=== PATIENT | female | born 1945 | race Caucasian/White ===

== ENCOUNTER 2016-11-06 09:48 | Observation (INO) | payer OTHER ==
[~2016-11-06] VITALS: Ht 165.1 cm; Wt 50.0 kg
[~2016-11-06 09:48] MED LIST: AMAN100C18 PO; CALC-51 PO; DESV50TA2 PO; INTE44IN SQ; LISI10TA PO; TRAZ1TAB8 PO
[2016-11-06] MEDS ORDERED: ACETAMINOPHEN 500 MG TAB PO STA (10:04)
[2016-11-06] MEDS ORDERED: SODIUM CHLORIDE 0.9% 1000ML 500 ML IV ONE (10:04)
[2016-11-06] MEDS ORDERED: CYNI1000 SQ (10:24)
[2016-11-06 10:47] LABS: BASO % 0.5 %; BASO ABS # 0.03 K/uL (0-0.2); COMPLETE YES; EOS % 1.6 %; HEMATOCRIT 37.1 % (37-47); IG% 0.2 %; LYMPH % 9.9 %; LYMPH ABS # 0.55 K/uL (1.2-3.4); MEAN CELL VOLUME 98.4 fL (80-100); MEAN CORPUSCULAR HEMOGLOBIN 33.2 pg (25-34); MEAN CORPUSCULAR HGB CONC 33.7 g/dl (32-36); MEAN PLATELET VOLUME 9.6 fL (7.4-10.4); MONO % 12.1 %; NEUT % 75.7 %; PLATELET COUNT 217 K/uL (130-400); RED BLOOD COUNT 3.77 M/uL (4.2-5.4); WHITE BLOOD COUNT 5.53 K/uL (4.8-10.8)
[2016-11-06 10:56] LABS: INR 1.1 (0.9-1.1); PARTIAL THROMBOPLASTIN RATIO 0.9; PROTHROMBIN TIME (PATIENT) 11.4 SECONDS (9.0-12.0)
[2016-11-06 10:57] LABS: ALT/SGPT 25 U/L (12-78); BLOOD UREA NITROGEN 18 mg/dl (7-18); BUN/CREATININE RATIO 20.3 (10-20); CALCIUM 9.6 mg/dl (8.5-10.1); CARBON DIOXIDE 26 mmol/L (21-32); CHLORIDE 103 mmol/L (98-107); CREATININE 0.88 mg/dl (0.60-1.20); GLUCOSE 78 mg/dl (70-99); POTASSIUM 4.2 mmol/L (3.5-5.1); SODIUM 140 mmol/L (136-145)
--- NOTE | 2016-11-06 11:00 | DIAGNOSTIC IMAGING REPORT ---
CHEST ONE VIEW PORTABLE CLINICAL HISTORY: Sepsis COMPARISON STUDY: No previous studies for comparison. FINDINGS: The heart is normal in size. There is mild elevation left hemidiaphragm. There is no failure. There is no focal pulmonary consolidation. There are minor left basilar atelectatic changes.[ IMPRESSION: No active disease in the chest. Electronically signed by: Manuel Richter M.D. 11/06/2016 10:59 AM Dictated Date/Time: 11/06/2016 10:58 AM
[2016-11-06 11:02] LABS: ALB/GLOB RATIO 1.3 (0.9-2); ALKALINE PHOSPHATASE 69 U/L (45-117); AST/SGOT 25 U/L (15-37)
[2016-11-06] MEDS ORDERED: SODIUM CHLORIDE 0.9% 500ML 500 ML IV STA (12:09)
[2016-11-06 12:32] LABS: URINE APPEARANCE TURBID (CLEAR); URINE BILIRUBIN NEG (NEG); URINE COLOR YELLOW; URINE NITRITE NEG (NEG); URINE PH 5.5 (4.5-7.5); URINE SPECIFIC GRAVITY 1.013 (1.000-1.030); UROBILINOGEN NEG (NEG); ZZURINE CULT IF INDIC CATH YES
[2016-11-06 12:41] LABS: MANUAL MICROSCOPIC REQUIRED? NO; REVIEW REQ? YES
[2016-11-06] MEDS ORDERED: CEFTRIAXONE SOD INJ 1 GM ADDVIAL IV STA (13:30)
[2016-11-06] MEDS ORDERED: ACETAMINOPHEN 325 MG TAB PO PRN (14:30)
[2016-11-06] MEDS ORDERED: ONDANSETRON INJ 2 MG/ML 2 ML VIAL IV PRN (14:30)
[2016-11-06] MEDS ORDERED: LOSA1TAB PO (14:34)
--- NOTE | 2016-11-06 15:00 | History and Physical ---
History & Physical Date & Time of Service: Nov 06, 2016 at 14:42 Chief Complaint: U Primary Care Physician: Carlos Bhagat MD History of Present Illness Source: patient, clinic records, hospital records Patient seen and examined 71 year old year old female with PMHx of Multiple Sclerosis HTN, and depression presents to the ED complaining of generalized weakness x 1 day. Patient reports that she is on Rebif injections for MS but has not taken them for about 3 months d/t financial reasons. She resumed them last evening. Several hours later she felt generally weak and shaky but didn't think much of it because she knew flu-like symptoms could be a side effect. When she woke up this morning she felt even worse she states she had difficulty ambulating d/t generalized weakness, so she called a friend who brought her to the ED. She denies fevers, chills, URI symptoms, chest pain, SOB, nausea, vomiting, diarrhea, dysuria, incontinence, calf pain and edema. She denies ever having side effects from rebif previously. She denies any sick contacts. In the ED VS are stable, CBC, PRP are unremarkable. UA shows a urinary tract infection. She was given IVFs and Ceftriaxone and reports already starting to feel better. She will be observed for further workup and treatment. 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 Surgical Problems: (1) H/O colonoscopy Status: Chronic (2) History of dental surgery Status: Chronic Family History Manatee's disease FH: CAD (coronary artery disease) FH: cancer Social History Smoking Status: Former Smoker Alcohol Use: occasionally Marital Status: single Housing status: lives alone Occupational Status: retired Immunizations History of Influenza Vaccine: Yes Influenza Vaccine Date: May 14, 2011 History of Tetanus Vaccine?: No History of Pneumococcal: Yes Pneumococcal Date: May 14, 2011 History of Hepatitis B Vaccine: No Allergies Coded Allergies: Ampicillin (Verified Allergy, Unknown, UNKNOWN, 11/06/16) Penicillins (Verified Allergy, Unknown, UNKNOWN, 11/06/16) Sulfa Antibiotics (Verified Allergy, Unknown, unknown, 11/06/16) Tetracycline (Verified Allergy, Unknown, UNKNOWN, 11/06/16) Home Medications Scheduled Amantadine Hcl (Amantadine Hcl), 100 MG PO BID Cyanocobalamin (Cyanocobalamin), 1,000 MCG SQ MONTHLY Desvenlafaxine Succinate (Pristiq), 50 MG PO DAILY Interferon Beta-1A (Rebif), 44 MCG SQ Q2D Losartan Potassium (Cozaar), 1 TAB PO DAILY Trazodone Hcl (Desyrel), 100 MG PO QPM Review of Systems See above for pertinent positives & negatives. A total of 10 systems reviewed and were otherwise negative. Physical Exam Vital Signs Date Time Temp Pulse Resp B/P Pulse Ox O2 Delivery O2 Flow Rate FiO2 11/06/16 13:35 91 20 133/78 97 11/06/16 13:34 88 11/06/16 12:32 94 18 141/83 96 Room Air 11/06/16 11:54 97 Room Air 11/06/16 11:53 91 20 144/80 97 Room Air 11/06/16 10:50 95 19 141/93 Room Air 11/06/16 10:08 100 11/06/16 09:52 36.8 99 18 146/104 96 Room Air General Appearance: + pertinent finding (Very pleasant frail cachectic appearing 71 year old female lying in bed in NAD ) Head: normocephalic, atraumatic Eyes: PERRL, EOMI, sclerae normal ENT: hearing grossly normal, pharynx normal Neck: supple, no JVD Respiratory/Chest: chest non-tender, lungs clear, normal breath sounds, no respiratory distress, no accessory muscle use Cardiovascular: regular rate, rhythm, no edema, no gallop, no JVD, no murmur, normal peripheral pulses Abdomen/GI: normal bowel sounds, non tender, soft Back: normal inspection, no CVA tenderness, no muscle spasm Extremities/Musculoskelatal: no calf tenderness, normal capillary refill, no pedal edema Neurologic/Psych: alert, oriented x 3, + pertinent finding (Strength +4/5 in all extremities equal BL, no focal deficits noted ) Skin: normal color, warm/dry, no rash Lymphatic: no adenopathy Diagnostics Laboratory Results Results Past 24 Hours Test 11/06/16 10:15 11/06/16 10:22 11/06/16 10:45 11/06/16 11:50 Range/Units White Blood Count 5.53 4.8-10.8 K/uL Red Blood Count 3.77 4.2-5.4 M/uL Hemoglobin 12.5 12.0-16.0 g/dL Hematocrit 37.1 37-47 % Mean Corpuscular Volume 98.4 80-100 fL Mean Corpuscular Hemoglobin 33.2 25-34 pg Mean Corpuscular Hemoglobin Concent 33.7 32-36 g/dl Platelet Count 217 130-400 K/uL Mean Platelet Volume 9.6 7.4-10.4 fL Neutrophils (%) (Auto) 75.7 % Lymphocytes (%) (Auto) 9.9 % Monocytes (%) (Auto) 12.1 % Eosinophils (%) (Auto) 1.6 % Basophils (%) (Auto) 0.5 % Neutrophils # (Auto) 4.18 1.4-6.5 K/uL Lymphocytes # (Auto) 0.55 1.2-3.4 K/uL Monocytes # (Auto) 0.67 0.11-0.59 K/uL Eosinophils # (Auto) 0.09 0-0.5 K/uL Basophils # (Auto) 0.03 0-0.2 K/uL RDW Standard Deviation 46.2 36.4-46.3 fL RDW Coefficient of Variation 12.9 11.5-14.5 % Immature Granulocyte % (Auto) 0.2 % Immature Granulocyte # (Auto) 0.01 0.00-0.02 K/uL Prothrombin Time 11.4 9.0-12.0 SECONDS Prothromb Time International Ratio 1.1 0.9-1.1 Activated Partial Thromboplast Time 24.3 21.0-31.0 SECONDS Partial Thromboplastin Ratio 0.9 Sodium Level 140 136-145 mmol/L Potassium Level 4.2 3.5-5.1 mmol/L Chloride Level 103 98-107 mmol/L Carbon Dioxide Level 26 21-32 mmol/L Anion Gap 11.0 3-11 mmol/L Blood Urea Nitrogen 18 7-18 mg/dl Creatinine 0.88 0.60-1.20 mg/dl Est Creatinine Clear Calc Drug Dose 48.7 ml/min Estimated GFR () 77.2 Estimated GFR (Non- 66.6 BUN/Creatinine Ratio 20.3 10-20 Random Glucose 78 70-99 mg/dl Calcium Level 9.6 8.5-10.1 mg/dl Total Bilirubin 0.5 0.2-1 mg/dl Aspartate Amino Transf (AST/SGOT) 25 15-37 U/L Alanine Aminotransferase (ALT/SGPT) 25 12-78 U/L Alkaline Phosphatase 69 45-117 U/L Troponin I < 0.015 0-0.045 ng/ml Total Protein 7.6 6.4-8.2 gm/dl Albumin 4.3 3.4-5.0 gm/dl Globulin 3.3 2.5-4.0 gm/dl Albumin/Globulin Ratio 1.3 0.9-2 Bedside Lactic Acid Venous 0.94 0.90-1.70 mmol/L Urine Color YELLOW Urine Appearance TURBID CLEAR Urine pH 5.5 4.5-7.5 Urine Specific [place] 1.013 1.000-1.030 Urine Protein NEG NEG Urine Glucose (UA) NEG NEG Urine Ketones TRACE NEG Urine Occult Blood 2+ NEG Urine Nitrite NEG NEG Urine Bilirubin NEG NEG Urine Urobilinogen NEG NEG Urine Leukocyte Esterase LARGE NEG Urine WBC (Auto) >30 0-5 /hpf Urine RBC (Auto) 10-30 0-4 /hpf Urine Hyaline Casts (Auto) 1-5 0-5 /lpf Urine Epithelial Cells (Auto) 5-10 0-5 /lpf Urine Bacteria (Auto) 2+ NEG Urine Yeast (Auto) NONE PRSENT Influenza Type A Antigen Neg for Influ A NEG Influenza Type B Antigen Neg for Influ B NEG Test 11/06/16 14:32 Range/Units Microbiology Results 11/06/16 Blood Culture, Received Pending 11/06/16 Blood Culture, Received Pending 11/06/16 Urine Culture, Received Pending Diagnostic Radiology CXR Per radiologist read: IMPRESSION: No active disease in the chest. EKG NSR 92 BPM, nonspecific ST abnormality Impression Assessment and Plan 71 year old female with history of multiple sclerosis presents to the ED complaining of generalized weakness ambulatory dysfunction x 1 day. Patient resumed Refib yesterday after missing 3 months for finances. Workup reveals UTI URINARY TRACT INFECTION -Observation in med/surg -Nontoxic appearing, afebrile, no leukocytosis, no signs of sepsis -urine culture pending -empirically treat with Rocephin- no previous cultures available -Gentle IVF hydration -CBC, PRP, Mg daily GENERALIZED WEAKNESS -? cause ? secondary to URI, Refib side effect, ?Influenza -Flu antigen negative will check flu PCR -empiric ceftriaxone for UTI -Neurology consulted RE: MS/medications -PT/OT eval MALNUTRITION -BMI 19 kg/m2, appears cachectic -Dietitian consult placed MULTIPLE SCLEROSIS -Follows with Dr. Duran -Just resumed Refib yesterday - has known side effect of flu like symptoms -Continue Amantadine -consult neurology placed -Next dose of Refib due tomorrow night - will hold for now and defer to neurology HTN -stable -continue Losartan DEPRESSION -continue Trazodone, Pristiq H/O B12 DEFICIENCY -continue monthly B12 injections H/O SUBDURAL HEMORRHAGE DVT PROPHYLAXIS: SCDs RE: h/o subdural hemorrhage CODE STATUS: FULL CODE DISPO:observation pending further workup discharge planning eval Patient seen in collaboration with Dr. Anthony ATTENDING ADDENDUM care coordinated with ALBERTA Marks please refer to her notes for full details, I agree with her notes patient seen and examined, records reviewed by myself as well on exam, patient seen resting in bed states she feels better compared to earlier today no chills denies abdominal pain, dysuria no other symptoms VS noted and reviewed oriented x 3, not in distress, speaks in sentences with no effort nor accessory muscle use normal rate, regular rhythm, no murmurs clear breath sounds bilaterally non distended, soft, nontender no bipedal edema, erythema, warmth no neuro deficits WBC 5.5 UA: (+) leuk esterase, bacteria ASSESSMENT/PLAN> WEAKNESS, POSSIBLE REACTION TO REBIF - hold Rebif Neurology consulted IV fluids R/O UTI - ff up cultures - empiric Ceftriaxone other diagnoses and plan of care as per ALBERTA Marks's notes Jeferson Anthony MD VTE Prophylaxis VTE Risk Assessment Done? Y/N: Yes Risk Level: Moderate
[2016-11-06 16:19] VITALS: BP 134/76; PULSE 71; TEMP 36.5; O2SAT 94
--- NOTE | 2016-11-06 17:06 | EMERGENCY ROOM VISIT NOTE ---
History Report prepared by Refugio: Shiv Harris Under the Supervision of: Dr. Ha Oro M.D. First contact with patient: 09:59 Chief Complaint: ILLNESS Stated Complaint: U History of Present Illness The patient is a 71 year old female with a history of MS who presents to the Emergency Room with complaints of persistent generalized weakness for the past several hours. The patient has been having difficulty ambulating secondary to weakness. She also complains of chills and tremors of the upper extremities. The patient denies any fevers, cough, congestion, sore throat, vomiting, diarrhea, urinary symptoms, or rashes. The patient was taking Rebif for MS every other day. She stopped taking it for three months for financial reasons. The patient had her first dose of Rebif in three months around 0100 last night, several hours before her symptoms began. She felt completely fine prior to the injection. The patient states that she has been keeping up with fluids. The patient takes Pristiq for depression and lisinopril for hypertension. Source of History: patient Onset: several hours Position: other (generalized) Quality: other (weakness) Timing: other (persistent) Associated Symptoms: + chills, No cough, No diarrhea, No fevers, No rash, No sorethroat, No urinary symptoms, No vomiting Review of Systems See HPI for pertinent positives & negatives. A total of 10 systems reviewed and were otherwise negative. Past Medical & Surgical Medical Problems: (1) B12 deficiency (2) Clostridium difficile infection (3) Depression (4) Generalized weakness (5) HTN (hypertension) (6) Multiple sclerosis (7) Subdural hematoma (8) UTI (urinary tract infection) Surgical Problems: (1) H/O colonoscopy (2) History of dental surgery Family History Patient reports no known family medical history. Social History Smoking Status: Former Smoker Alcohol Use: occasionally Marital Status: single Housing Status: other Occupation Status: retired Current/Historical Medications Scheduled Amantadine Hcl (Amantadine Hcl), 100 MG PO BID Cyanocobalamin (Cyanocobalamin), 1,000 MCG SQ MONTHLY Desvenlafaxine Succinate (Pristiq), 50 MG PO DAILY Interferon Beta-1A (Rebif), 44 MCG SQ Q2D Losartan Potassium (Cozaar), 1 TAB PO DAILY Trazodone Hcl (Desyrel), 100 MG PO QPM Allergies Coded Allergies: Ampicillin (Verified Allergy, Unknown, UNKNOWN, 11/06/16) Penicillins (Verified Allergy, Unknown, UNKNOWN, 11/06/16) Sulfa Antibiotics (Verified Allergy, Unknown, unknown, 11/06/16) Tetracycline (Verified Allergy, Unknown, UNKNOWN, 11/06/16) Physical Exam Vital Signs Date Time Temp Pulse Resp B/P Pulse Ox O2 Delivery O2 Flow Rate FiO2 11/06/16 16:09 80 18 130/75 97 11/06/16 13:35 91 20 133/78 97 11/06/16 13:34 88 11/06/16 12:32 94 18 141/83 96 Room Air 11/06/16 11:54 97 Room Air 11/06/16 11:53 91 20 144/80 97 Room Air 11/06/16 10:50 95 19 141/93 Room Air 11/06/16 10:08 100 11/06/16 09:52 36.8 99 18 146/104 96 Room Air Physical Exam GENERAL: Patient is in no acute distress. HEENT: No acute trauma, normocephalic atraumatic, mucous membranes moist, no nasal congestion, no scleral icterus. NECK: No stridor, no adenopathy, no meningismus, trachea is midline. LUNGS: Clear to auscultation bilaterally, no wheeze, no rhonchi, breath sounds equal. HEART: Tachycardic with a regular rhythm, no murmurs. ABDOMEN: Soft, nontender, bowel sounds positive, no hernias, no peritonitis. EXTREMITIES: No cyanosis or edema, full range of motion of all the joints without pain or difficulty, no signs for acute trauma. NEUROLOGIC: Oriented x 3, no acute motor or sensory deficits, no focal weakness , extremity tremor noted. SKIN: No rash, no jaundice, no diaphoresis. Medical Decision & Procedures ER Provider Diagnostic Interpretation: X-ray results as stated below per interpretation by me and the radiologist: CHEST ONE VIEW PORTABLE CLINICAL HISTORY: Sepsis COMPARISON STUDY: No previous studies for comparison. FINDINGS: The heart is normal in size. There is mild elevation left hemidiaphragm. There is no failure. There is no focal pulmonary consolidation. There are minor left basilar atelectatic changes.[ IMPRESSION: No active disease in the chest. Electronically signed by: Manuel Richter M.D. 11/06/2016 10:59 AM Dictated Date/Time: 11/06/2016 10:58 AM Laboratory Results 11/06/16 10:15 Red Blood Count 3.77, Mean Corpuscular Volume 98.4, Mean Corpuscular Hemoglobin 33.2, Mean Corpuscular Hemoglobin Concent 33.7, Mean Platelet Volume 9.6, Neutrophils (%) (Auto) 75.7, Lymphocytes (%) (Auto) 9.9, Monocytes (%) (Auto) 12.1, Eosinophils (%) (Auto) 1.6, Basophils (%) (Auto) 0.5, Neutrophils # (Auto ) 4.18, Lymphocytes # (Auto) 0.55, Monocytes # (Auto) 0.67, Eosinophils # (Auto ) 0.09, Basophils # (Auto) 0.03 11/06/16 10:15 Test 11/06/16 10:15 11/06/16 10:22 11/06/16 10:45 11/06/16 11:50 White Blood Count 5.53 K/uL (4.8-10.8) Red Blood Count 3.77 M/uL (4.2-5.4) Hemoglobin 12.5 g/dL (12.0-16.0) Hematocrit 37.1 % (37-47) Mean Corpuscular Volume 98.4 fL (80-100) Mean Corpuscular Hemoglobin 33.2 pg (25-34) Mean Corpuscular Hemoglobin Concent 33.7 g/dl (32-36) Platelet Count 217 K/uL (130-400) Mean Platelet Volume 9.6 fL (7.4-10.4) Neutrophils (%) (Auto) 75.7 % Lymphocytes (%) (Auto) 9.9 % Monocytes (%) (Auto) 12.1 % Eosinophils (%) (Auto) 1.6 % Basophils (%) (Auto) 0.5 % Neutrophils # (Auto) 4.18 K/uL (1.4-6.5) Lymphocytes # (Auto) 0.55 K/uL (1.2-3.4) Monocytes # (Auto) 0.67 K/uL (0.11-0.59) Eosinophils # (Auto) 0.09 K/uL (0-0.5) Basophils # (Auto) 0.03 K/uL (0-0.2) RDW Standard Deviation 46.2 fL (36.4-46.3) RDW Coefficient of Variation 12.9 % (11.5-14.5) Immature Granulocyte % (Auto) 0.2 % Immature Granulocyte # (Auto) 0.01 K/uL (0.00-0.02) Prothrombin Time 11.4 SECONDS (9.0-12.0) Prothromb Time International Ratio 1.1 (0.9-1.1) Activated Partial Thromboplast Time 24.3 SECONDS (21.0-31.0) Partial Thromboplastin Ratio 0.9 Anion Gap 11.0 mmol/L (3-11) Est Creatinine Clear Calc Drug Dose 48.7 ml/min Estimated GFR () 77.2 Estimated GFR (Non- 66.6 BUN/Creatinine Ratio 20.3 (10-20) Calcium Level 9.6 mg/dl (8.5-10.1) Total Bilirubin 0.5 mg/dl (0.2-1) Aspartate Amino Transf (AST/SGOT) 25 U/L (15-37) Alanine Aminotransferase (ALT/SGPT) 25 U/L (12-78) Alkaline Phosphatase 69 U/L (45-117) Troponin I < 0.015 ng/ml (0-0.045) Total Protein 7.6 gm/dl (6.4-8.2) Albumin 4.3 gm/dl (3.4-5.0) Globulin 3.3 gm/dl (2.5-4.0) Albumin/Globulin Ratio 1.3 (0.9-2) Thyroid Stimulating Hormone (TSH) 3.470 uIu/ml (0.300-4.500) Bedside Lactic Acid Venous 0.94 mmol/L (0.90-1.70) Urine Color YELLOW Urine Appearance TURBID (CLEAR) Urine pH 5.5 (4.5-7.5) Urine Specific [place] 1.013 (1.000-1.030) Urine Protein NEG (NEG) Urine Glucose (UA) NEG (NEG) Urine Ketones TRACE (NEG) Urine Occult Blood 2+ (NEG) Urine Nitrite NEG (NEG) Urine Bilirubin NEG (NEG) Urine Urobilinogen NEG (NEG) Urine Leukocyte Esterase LARGE (NEG) Urine WBC (Auto) >30 /hpf (0-5) Urine RBC (Auto) 10-30 /hpf (0-4) Urine Hyaline Casts (Auto) 1-5 /lpf (0-5) Urine Epithelial Cells (Auto) 5-10 /lpf (0-5) Urine Bacteria (Auto) 2+ (NEG) Urine Yeast (Auto) (NONE PRSENT) Influenza Type A Antigen Neg for Influ A (NEG) Influenza Type B Antigen Neg for Influ B (NEG) Laboratory results reviewed by me. Medications Administered Medications (Trade) Dose Ordered Sig/Roby Route Start Time Stop Time Status Last Admin Dose Admin Sodium Chloride (Nss 1000ml) 500 ml @ 999 mls/hr Q31M ONCE IV 11/06/16 10:04 11/06/16 10:34 DC 11/06/16 10:31 999 MLS/HR Acetaminophen 1000 mg 1,000 mg NOW STAT PO 11/06/16 10:04 11/06/16 10:06 DC 11/06/16 10:32 1,000 MG Sodium Chloride (Nss 500ml) 500 ml @ 999 mls/hr Q31M STAT IV 11/06/16 12:09 11/06/16 12:39 DC 11/06/16 12:30 999 MLS/HR Ceftriaxone Sodium (Rocephin Inj) 1 gm NOW STAT IV 11/06/16 13:30 11/06/16 13:31 DC 11/06/16 13:34 1 GM ECG Indication: weakness Rate (beats per minute): 92 Rhythm: normal sinus Findings: ST depression (Lateral, subtle), no acute ischemic change, no ectopy Comparison ECG Date: 13 March 2012 Change: Lateral ST depressions are new compared to prior EKG dated 13 March 2012. ED Course 1002: The patient was evaluated in room A10. A complete history and physical exam was performed. 1004: Tylenol 1000 mg PO, NSS 500 ml @ 999 mls/hr. 1209: NSS 500 ml @ 999 mls/hr. 1330: Rocephin 1 gm IV. 1340: Updated the patient. She verbalized understanding and agreement of the plan. 1351: Discussed the case with Haliey Ly PA-C, [facility] Hospitalist. The patient will be evaluated. Medical Decision Differential diagnosis includes medication reaction, UTI, infection, viral illness, pneumonia, dehydration, electrolyte imbalance, anemia, exacerbation of MS. There is no leukocytosis or concerning anemia. No significant electrolyte abnormality, kidney failure or hepatitis. The patient appears to be in a euthyroid state. Influenza testing is negative. Chest film does not show pneumonia or CHF. EKG shows a normal sinus rhythm, no acute ischemia. Cardiac enzyme testing 1 is not consistent with acute cardiac injury. Urinalysis shows infection. Urine culture and blood cultures are pending. Lactic acid level is not elevated making severe sepsis less likely. The patient received IV saline, oral Tylenol and IV ceftriaxone. I do think that the UTI is causing a flare of her MS. Admission/observation is warranted. Consults Time Called: 1345 Consulting Physician: Hailey Ly PA-C, [facility] Hospitalist Returned Call: [phone]: Discussed the case with Hailey Ly PA-C, [facility] Hospitalist. The patient will be evaluated. Impression Primary Impression: UTI (urinary tract infection) Additional Impression: Weakness Scribe Attestation The scribe's documentation has been prepared under my direction and personally reviewed by me in its entirety. I confirm that the note above accurately reflects all work, treatment, procedures, and medical decision making performed by me. Departure Information Dispostion Being Evaluated By Hospitalist Referrals Carlos Bhagat MD (PCP) Patient Instructions My [facility] Problem Qualifiers
[2016-11-06 19:42] VITALS: BP 134/76; PULSE 71; TEMP 36.5; O2SAT 94; Ht 165.1 cm; Wt 50.0 kg
[2016-11-06 20:18] LABS: INFLUENZA A PCR Neg for Influ A (NEG); INFLUENZA B PCR Neg for Influ B (NEG)
[2016-11-06] MEDS: SODIUM CHLORIDE 0.9% 1000ML 1,000 ML IV SCH (21:00)
[2016-11-06] MEDS: AMANTADINE HCL 100 MG CAP PO SCH (21:01)
[2016-11-06] MEDS: TRAZODONE HCL 100 MG TAB PO SCH (21:01)
[2016-11-07 00:33] VITALS: BP 131/84; PULSE 67; TEMP 36.4; O2SAT 96
[2016-11-07] MEDS: SODIUM CHLORIDE 0.9% 1000ML 1,000 ML IV SCH ×2 (04:54→15:00)
[2016-11-07 06:08] LABS: HEMATOCRIT 33.1 % (37-47); MEAN CELL VOLUME 100.6 fL (80-100); MEAN CORPUSCULAR HEMOGLOBIN 32.8 pg (25-34); MEAN CORPUSCULAR HGB CONC 32.6 g/dl (32-36); MEAN PLATELET VOLUME 9.8 fL (7.4-10.4); PLATELET COUNT 186 K/uL (130-400); RED BLOOD COUNT 3.29 M/uL (4.2-5.4); WHITE BLOOD COUNT 3.37 K/uL (4.8-10.8)
[2016-11-07 06:36] LABS: BUN/CREATININE RATIO 21.8 (10-20); CALCIUM 8.5 mg/dl (8.5-10.1); CREATININE 0.81 mg/dl (0.60-1.20); MAGNESIUM 1.8 mg/dl (1.8-2.4); POTASSIUM 4.1 mmol/L (3.5-5.1)
[2016-11-07 08:07] VITALS: BP 108/68; PULSE 76; TEMP 36.7; O2SAT 91
[2016-11-07] MEDS ORDERED: LISINOPRIL 10 MG TAB PO SCH (09:00)
[2016-11-07] MEDS: LOSARTAN POTASSIUM 25 MG TAB PO SCH (09:21)
[2016-11-07] MEDS: AMANTADINE HCL 100 MG CAP PO SCH ×2 (09:21→21:18)
[2016-11-07] MEDS: CEFTRIAXONE SOD INJ 1 GM in DEXTROSE 5% ADD-VANTAGE 50ML 50 ML IV SCH (12:15)
--- NOTE | 2016-11-07 13:45 | Neurology Consultation ---
Neurology Consultation Date of Consultation: Nov 07, 2016. Attending Physician: Geoffrey Tovar MD Primary Care Physician: Carlos Bhagat MD Reason for Consultation: MS with generalized weakness History of Present Illness Source: patient Floresita is a 71 year old year old female with PMH of MS, HTN, and depression presents to the ED complaining of generalized weakness x 1 day. She states she had been on Rebif injections for MS but for about 3 months because of financial reasons. She took her first shot in 3 months at about 1a this am. She started feeling generally weak and shaky so she went back to bed but when she woke in the morning she was having difficulty ambulating because of the weakness , so she called a neighbor that brought her to the ED. She denies fevers, chills , URI symptoms, chest pain, SOB, nausea, vomiting, diarrhea, dysuria, incontinence, calf pain and edema. She states in the past she doesn't remember having side effects with the Rebif. Her UA showed a UTI and was treated with fluids and and Ceftriaxone. She states she is feeling better today and was able to eat her lunch without issues. Past Medical/Surgical History Medical Problems: (1) Encounter for laboratory test Status: Acute (2) Weakness Status: Acute Social History Smoking Status: Never smoker Alcohol Use: occasionally Marital Status: single Housing Status: other Occupation Status: retired Allergies Coded Allergies: Ampicillin (Verified Allergy, Unknown, UNKNOWN, 11/06/16) Penicillins (Verified Allergy, Unknown, UNKNOWN, 11/06/16) Sulfa Antibiotics (Verified Allergy, Unknown, unknown, 11/06/16) Tetracycline (Verified Allergy, Unknown, UNKNOWN, 11/06/16) Current Inpatient Medications Current Inpatient Medications Medications (Trade) Dose Ordered Sig/Roby Route Start Time Stop Time Status Last Admin Dose Admin Acetaminophen (Tylenol Tab) 650 mg Q4H PRN PO 11/06/16 14:30 12/06/16 14:29 Ondansetron HCl 4 mg 4 mg Q6H PRN IV 11/06/16 14:30 12/06/16 14:29 Ceftriaxone Sodium 1 gm/ Dextrose 50 ml @ 100 mls/hr Q24H IV 11/07/16 12:00 11/12/16 11:59 11/07/16 12:15 100 MLS/HR Sodium Chloride (Nss 1000ml) 1,000 ml @ 100 mls/hr Q10H IV 11/06/16 19:00 12/06/16 18:59 11/07/16 04:54 100 MLS/HR Amantadine HCl (Symmetrel Cap) 100 mg BID PO 11/06/16 20:00 12/06/16 20:59 11/07/16 09:21 100 MG Losartan Potassium (coZAAR TAB) 25 mg DAILY PO 11/07/16 08:00 12/07/16 08:59 11/07/16 09:21 25 MG Trazodone HCl (Desyrel Tab) 100 mg QPM PO 11/06/16 21:00 12/06/16 20:59 11/06/16 21:01 100 MG Miscellaneous Information (Order Awaiting Action) 1 ea QS N/A 11/07/16 19:00 12/07/16 18:59 Physical Exam Vital Signs (Past 24 Hrs): Date Time Temp Pulse Resp B/P Pulse Ox O2 Delivery O2 Flow Rate FiO2 11/07/16 08:45 Room Air 11/07/16 08:07 36.7 76 18 108/68 91 Room Air 11/07/16 00:33 36.4 67 18 131/84 96 Room Air 11/07/16 00:00 Room Air 11/06/16 19:42 36.5 71 16 134/76 94 Room Air 11/06/16 16:19 36.5 71 16 134/76 94 Room Air 11/06/16 16:09 80 18 130/75 97 11/06/16 13:35 91 20 133/78 97 11/06/16 13:34 88 Physical Exam: Constitutional: appearance nourished, healthy and normal Ears, Nose, Mouth and Throat: mucous membranes moist, no injection and skin normal, eyes normal Cardiovascular: normal S-1 and S-2 and regular rate and rhythm Respiratory: clear to auscultation (CTA) and no rales, rhonchi or wheeze Musculoskeletal: no peripheral edema and good distal pulses Skin: no stigmata of neurocutaneous disease noted and normal and intact Eyes: extraocular muscles intact (EOMI) and pupils equal, round and reactive to light (PERRL) NEUROLOGIC EXAMINATION: Mental status: Alert and interactive Oriented to full date and location Oriented to person Speech fluent with no evidence of aphasia Cranial Nerves smile and eye brow raise symmetric Reflexes: brisk reflexes throughout. Plantar responses were flexor. Sensory: decreased sensation to vibration, GT proprioception and cool touch in take Coordination: finger to nose with slight dysmetric right Gait/Stance: sitting up in bed Motor: Negative for pronator drift of out stretched arms with eyes closed. Strength: biceps triceps hand feed in worker intrinsics 5/5 bilaterally, right LE 4/5 hip flex plantar flex ext, left hip flex plantar flex ext 5/5 Laboratory Results Past 24 Hours: 11/07/16 05:25 11/07/16 05:25 Test 11/06/16 18:20 11/07/16 05:25 Influenza Type A (RT-PCR) Neg for Influ A (NEG) Influenza Type B (RT-PCR) Neg for Influ B (NEG) Red Blood Count 3.29 M/uL (4.2-5.4) Mean Corpuscular Volume 100.6 fL (80-100) Mean Corpuscular Hemoglobin 32.8 pg (25-34) Mean Corpuscular Hemoglobin Concent 32.6 g/dl (32-36) RDW Standard Deviation 47.4 fL (36.4-46.3) RDW Coefficient of Variation 12.9 % (11.5-14.5) Mean Platelet Volume 9.8 fL (7.4-10.4) Anion Gap 11.0 mmol/L (3-11) Est Creatinine Clear Calc Drug Dose 51.0 ml/min Estimated GFR () 85.3 Estimated GFR (Non- 73.6 BUN/Creatinine Ratio 21.8 (10-20) Calcium Level 8.5 mg/dl (8.5-10.1) Magnesium Level 1.8 mg/dl (1.8-2.4) Imaging CXR with no acute findings Impression 71 year old female s/p generalized weakness, UTI, restart if MS medication after a 3 month hiatus Plan 1. arrangements have been made for home restart of her Rebiff 8.8 to 22 to 44 as directed 2. currently on Ceftriaxone for UTI 3. CXR clear no acute findings 4. labs are WNL 5. PT/OT for assessment of stability walks outside with cane 6. fall risk 7. further recommendations to follow I have seen and discussed above patient with Dr Eze Lopez, neurology I have seen this woman reviewed her case and discussed the above with Madison KAHN and the nursing liason from [facility] who was visiting today fortuitously to initiate the restart process of therapy after a three month hiatus. It is difficult to state that either the rebiff or the uti were sesponsible for the sudden decline in neurological status but he patient is imrprovo ing now and is not yet to her baseline, Jerald may have inna a "perfect storm" situation and for now agree to hold rebif, rx the uti get pt ot etc involved hold steroids and observe for another day or two She will restart rebif gradually when she returns home as per the above note I will check by tomorrow Eze Lopez MD
[2016-11-07 14:49] VITALS: BP 133/76; PULSE 75; TEMP 36.3; O2SAT 95
--- NOTE | 2016-11-07 17:20 | Progress Note ---
Internal Med Progress Note Date of Service: Nov 07, 2016. Provider Documentation: SUBJECTIVE: feeling much better today thinks caused by medication side effect still requiring support for ambulation afebrile no sob OBJECTIVE: Vital Signs-as noted below Exam: General-alert and oriented x3. ENT-normal hearing Neck-no neck masses Lungs-cta b/l no wheezing or crackles Heart-s1 and s2 heard regular rate and rhythm no murmurs Abdomen-soft bowel sounds present non tender no distension Extremities-no erythema Neuro-alert and awake and oriented x 3 non focal Lab data as noted below. ASSESSMENT & PLAN: 71 year old female with history of multiple sclerosis presents to the ED complaining of generalized weakness ambulatory dysfunction x 1 day. Patient resumed Refib yesterday after missing 3 months for finances. Workup reveals UTI URINARY TRACT INFECTION on Rocephin await cx GENERALIZED WEAKNESS ? secondary to URI, Refib side effect patinet thinks form refib on abx as above pt/ot appreciate neurology inputs MALNUTRITION BMI 19 kg/m2, appears cachectic Dietitian consult placed MULTIPLE SCLEROSIS Follows with Dr. Duran resumed Refib yesterday - has known side effect of flu like symptoms on Amantadine consult neurology placed and appreciate inputs Next dose of Refib as per neurology HTN stable on Losartan DEPRESSION on Trazodone, Pristiq H/O B12 DEFICIENCY on monthly B12 injections H/O SUBDURAL HEMORRHAGE DVT PROPHYLAXIS: SCDs RE: h/o subdural hemorrhage CODE STATUS: FULL CODE DISPO:observation pending further workup to be determined Vital Signs: Date Time Temp Pulse Resp B/P Pulse Ox O2 Delivery O2 Flow Rate FiO2 11/07/16 16:00 Room Air 11/07/16 14:49 36.3 75 20 133/76 95 Room Air 11/07/16 08:45 Room Air 11/07/16 08:07 36.7 76 18 108/68 91 Room Air 11/07/16 00:33 36.4 67 18 131/84 96 Room Air 11/07/16 00:00 Room Air 11/06/16 19:42 36.5 71 16 134/76 94 Room Air Lab Results: Results Past 24 Hours Test 11/06/16 18:20 11/07/16 05:25 Range/Units Influenza Type A (RT-PCR) Neg for Influ A NEG Influenza Type B (RT-PCR) Neg for Influ B NEG White Blood Count 3.37 4.8-10.8 K/uL Red Blood Count 3.29 4.2-5.4 M/uL Hemoglobin 10.8 12.0-16.0 g/dL Hematocrit 33.1 37-47 % Mean Corpuscular Volume 100.6 80-100 fL Mean Corpuscular Hemoglobin 32.8 25-34 pg Mean Corpuscular Hemoglobin Concent 32.6 32-36 g/dl RDW Standard Deviation 47.4 36.4-46.3 fL RDW Coefficient of Variation 12.9 11.5-14.5 % Platelet Count 186 130-400 K/uL Mean Platelet Volume 9.8 7.4-10.4 fL Sodium Level 143 136-145 mmol/L Potassium Level 4.1 3.5-5.1 mmol/L Chloride Level 109 98-107 mmol/L Carbon Dioxide Level 23 21-32 mmol/L Anion Gap 11.0 3-11 mmol/L Blood Urea Nitrogen 18 7-18 mg/dl Creatinine 0.81 0.60-1.20 mg/dl Est Creatinine Clear Calc Drug Dose 51.0 ml/min Estimated GFR () 85.3 Estimated GFR (Non- 73.6 BUN/Creatinine Ratio 21.8 10-20 Random Glucose 83 70-99 mg/dl Calcium Level 8.5 8.5-10.1 mg/dl Magnesium Level 1.8 1.8-2.4 mg/dl
[2016-11-07] MEDS: TRAZODONE HCL 100 MG TAB PO SCH (21:18)
[2016-11-08 00:42] VITALS: BP 165/93; PULSE 81; TEMP 36.5; O2SAT 97
[2016-11-08] MEDS: SODIUM CHLORIDE 0.9% 1000ML 1,000 ML IV SCH ×2 (01:45→12:04)
[2016-11-08 07:26] VITALS: BP 146/80; PULSE 70; TEMP 36.4; O2SAT 96
[2016-11-08] MEDS: AMANTADINE HCL 100 MG CAP PO SCH (08:48)
[2016-11-08] MEDS: LOSARTAN POTASSIUM 25 MG TAB PO SCH (08:48)
[2016-11-08] MEDS: CEFTRIAXONE SOD INJ 1 GM in DEXTROSE 5% ADD-VANTAGE 50ML 50 ML IV SCH (12:04)
--- NOTE | 2016-11-08 14:49 | PROGRESS NOTE ---
DATE: 11/08/2016 DATE: 11/08/2016. Floresita looks great today. She and her feel she is essentially back to baseline, although perhaps a little off still. There have been walking around the floor. She has had no further fever and while her urinalysis was markedly abnormal on admission and the subsequent urine culture reveals no growth. Blood cultures have been negative. She is on antibiotics but these were started after the cultures were obtained so the concept that this may have been precipitated by a urinary tract infection may be erroneous. If that is the case then the Rebif started out a full dose without a buildup may well have been responsible for a febrile type of response and then worsening of her MS symptoms due to that. In theory prescription for the gradual dose escalation has been called in and should be available when she returns on Thursday. If she is discharged I have told her not to take anything until Thursday and then to contact Dr. Duran's office to be sure that the prescription has indeed been sent to the pharmacy and she can pick it up. The Rebif chain sales representative was in yesterday and hopefully she will be able to manage this since there are other issues. For now, if she feels stable and cultures are as they have been negative she could probably go home and not need antibiotics. I will check with her tomorrow if she is still here but for now from a neurologic point of view I think she can be cleared and hopefully the Rebif issue will be settled on an outpatient basis next week. RETA
--- NOTE | 2016-11-08 15:35 | Discharge Instructions ---
Discharge Instructions Admission Reason for Admission: Generalized Weakness, Uti Discharge Discharge Diagnosis / Problem: GENERALIZED WEAKNESS Discharge Goals Goal(s): Decrease discomfort, Improve function Activity Recommendations Activity Limitations: resume your previous activity . Instructions / Follow-Up Instructions / Follow-Up FOLLOWUP WITH FAMILY DOCTOR IN ONE WEE.( WILL BE CALLED WITH APPOINTMENT). FOLLOWUP WITH NEUROLOGY SCHEDULED. DOSE OF Rebif PER NEUROLOGY. TO BE WORKED UP OUT PATIENT Current Hospital Diet Patient's current hospital diet: Regular Diet Discharge Diet Recommended Diet: Regular Diet Pending Studies Studies pending at discharge: no Medical Emergencies . Who to Call and When: Medical Emergencies: If at any time you feel your situation is an emergency, please call 911 immediately. . Non-Emergent Contact Non-Emergency issues call your: Primary Care Provider . . "Provider Documentation" section prepared by Geoffrey Tovar. VTE Core Measure Inpt VTE Proph given/why not?: SCD's
[2016-11-08 15:42] VITALS: BP 145/89; PULSE 71; TEMP 36.3; O2SAT 98
[2016-11-08 16:33] VITALS: BP 145/89; PULSE 71; TEMP 36.3; O2SAT 98
--- NOTE | 2016-11-08 20:25 | Progress Note ---
Internal Med Progress Note Date of Service: Nov 08, 2016. Provider Documentation: SUBJECTIVE: weakness resolved ambulated fine afebrile ok to go home OBJECTIVE: Vital Signs-as noted below Exam: General-alert and oriented x3. ENT-normal hearing Neck-no neck masses Lungs-cta b/l no wheezing or crackles Heart-s1 and s2 heard regular rate and rhythm no murmurs Abdomen-soft bowel sounds present non tender no distension Extremities-no erythema Neuro-alert and awake and oriented x 3 non focal Lab data as noted below. ASSESSMENT & PLAN: 71 year old female with history of multiple sclerosis presents to the ED complaining of generalized weakness ambulatory dysfunction x 1 day. Patient resumed Refib yesterday after missing 3 months for finances. Workup reveals UTI URINARY TRACT INFECTION on Rocephin cx negative stopped abx GENERALIZED WEAKNESS ? secondary to URI, Refib side effect patinet thinks form refib on abx as above pt/ot appreciate neurology inputs improved did fine in pt/ot followup with neurology MALNUTRITION BMI 19 kg/m2, appears cachectic Dietitian consult placed MULTIPLE SCLEROSIS Follows with Dr. Duran resumed Refib yesterday - has known side effect of flu like symptoms on Amantadine consult neurology placed and appreciate inputs Next dose of Refib as per neurology HTN stable on Losartan DEPRESSION on Trazodone, Pristiq H/O B12 DEFICIENCY on monthly B12 injections H/O SUBDURAL HEMORRHAGE Discharged home Vital Signs: Date Time Temp Pulse Resp B/P Pulse Ox O2 Delivery O2 Flow Rate FiO2 11/08/16 16:33 36.3 71 18 98 Room Air 11/08/16 15:42 36.3 71 18 145/89 98 Room Air 11/08/16 08:00 Room Air 11/08/16 07:26 36.4 70 18 146/80 96 Room Air 11/08/16 00:42 36.5 81 20 165/93 97 Room Air 11/08/16 00:00 Room Air Lab Results: Results Past 24 Hours Test 11/08/16 05:24 Range/Units Vitamin B12 Level 305 211-911 pg/mL 25-Hydroxy Vitamin D Total 47.2 30-100 ng/ml
--- NOTE | 2016-11-08 20:33 | Discharge Summary ---
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 Consultations: NEUROLOGY Medication Reconciliation Continued Medications: Amantadine Hcl (Amantadine Hcl) 100 Mg Cap 100 MG PO BID, CAP Cyanocobalamin (Cyanocobalamin) 1,000 Mcg/Ml Inj 1000 MCG SQ MONTHLY Desvenlafaxine Succinate (Pristiq) 50 Mg Tab 50 MG PO DAILY, TAB Interferon Beta-1A (Rebif) 44 Mcg/0.5 Ml Inj 44 MCG SQ Q2D Losartan Potassium (Cozaar) 25 Mg Tab 1 TAB PO DAILY for 30 Days, #30 TAB 5 Refills Trazodone Hcl (Desyrel) 100 Mg Tab 100 MG PO QPM, TAB Admission Information HPI (per Admitting provider): Patient seen and examined 71 year old year old female with PMHx of Multiple Sclerosis HTN, and depression presents to the ED complaining of generalized weakness x 1 day. Patient reports that she is on Rebif injections for MS but has not taken them for about 3 months d/t financial reasons. She resumed them last evening. Several hours later she felt generally weak and shaky but didn't think much of it because she knew flu-like symptoms could be a side effect. When she woke up this morning she felt even worse she states she had difficulty ambulating d/t generalized weakness, so she called a friend who brought her to the ED. She denies fevers, chills, URI symptoms, chest pain, SOB, nausea, vomiting, diarrhea, dysuria, incontinence, calf pain and edema. She denies ever having side effects from rebif previously. She denies any sick contacts. In the ED VS are stable, CBC, PRP are unremarkable. UA shows a urinary tract infection. She was given IVFs and Ceftriaxone and reports already starting to feel better. She will be observed for further workup and treatment. Physical Exam (per Admitting): General Appearance: + pertinent finding (Very pleasant frail cachectic appearing 71 year old female lying in bed in NAD ) Head: normocephalic, atraumatic Eyes: PERRL, EOMI, sclerae normal ENT: hearing grossly normal, pharynx normal Neck: supple, no JVD Respiratory/Chest: chest non-tender, lungs clear, normal breath sounds, no respiratory distress, no accessory muscle use Cardiovascular: regular rate, rhythm, no edema, no gallop, no JVD, no murmur , normal peripheral pulses Abdomen/GI: normal bowel sounds, non tender, soft Back: normal inspection, no CVA tenderness, no muscle spasm Extremities/Musculoskelatal: no calf tenderness, normal capillary refill, no pedal edema Neurologic/Psych: alert, oriented x 3, + pertinent finding (Strength +4/5 in all extremities equal BL, no focal deficits noted ) Skin: normal color, warm/dry, no rash Lymphatic: no adenopathy Physical Exam (per Admitting): General Appearance: + pertinent finding (Very pleasant frail cachectic appearing 71 year old female lying in bed in NAD ) Head: normocephalic, atraumatic Eyes: PERRL, EOMI, sclerae normal ENT: hearing grossly normal, pharynx normal Neck: supple, no JVD Respiratory/Chest: chest non-tender, lungs clear, normal breath sounds, no respiratory distress, no accessory muscle use Cardiovascular: regular rate, rhythm, no edema, no gallop, no JVD, no murmur, normal peripheral pulses Abdomen/GI: normal bowel sounds, non tender, soft Back: normal inspection, no CVA tenderness, no muscle spasm Extremities/Musculoskelatal: no calf tenderness, normal capillary refill, no pedal edema Neurologic/Psych: alert, oriented x 3, + pertinent finding (Strength +4/5 in all extremities equal BL, no focal deficits noted ) Skin: normal color, warm/dry, no rash Lymphatic: no adenopathy Hospital Course 71 year old female with history of multiple sclerosis presents to the ED complaining of generalized weakness ambulatory dysfunction x 1 day. Patient resumed Refib yesterday after missing 3 months for finances. Workup reveals UTI URINARY TRACT INFECTION on Rocephin cx negative stopped abx GENERALIZED WEAKNESS ? secondary to URI, Refib side effect patinet thinks form refib on abx as above pt/ot appreciate neurology inputs improved did fine in pt/ot followup with neurology MALNUTRITION BMI 19 kg/m2, appears cachectic Dietitian consult placed MULTIPLE SCLEROSIS Follows with Dr. Duran resumed Refib yesterday - has known side effect of flu like symptoms on Amantadine consult neurology placed and appreciate inputs Next dose of Refib as per neurology HTN stable on Losartan DEPRESSION on Trazodone, Pristiq H/O B12 DEFICIENCY on monthly B12 injections H/O SUBDURAL HEMORRHAGE Discharged home Total time spent on discharge = 35MINUTES This includes examination of the patient, discharge planning, medication reconciliation, and communication with other providers. Discharge Instructions Discharge Instructions Admission Reason for Admission: Generalized Weakness, Uti Discharge Discharge Diagnosis / Problem: GENERALIZED WEAKNESS Discharge Goals Goal(s): Decrease discomfort, Improve function Activity Recommendations Activity Limitations: resume your previous activity . Instructions / Follow-Up Instructions / Follow-Up FOLLOWUP WITH FAMILY DOCTOR IN ONE WEE.( WILL BE CALLED WITH APPOINTMENT). FOLLOWUP WITH NEUROLOGY SCHEDULED. DOSE OF Rebif PER NEUROLOGY. TO BE WORKED UP OUT PATIENT Current Hospital Diet Patient's current hospital diet: Regular Diet Discharge Diet Recommended Diet: Regular Diet Pending Studies Studies pending at discharge: no Medical Emergencies . Who to Call and When: Medical Emergencies: If at any time you feel your situation is an emergency, please call 911 immediately. . Non-Emergent Contact Non-Emergency issues call your: Primary Care Provider . . "Provider Documentation" section prepared by Geoffrey Tovar. VTE Core Measure Inpt VTE Proph given/why not?: SCD's
== END 2016-11-08 16:50 | disposition home or self-care (01) ==
LOC: ENRESERVDT → ENRESERVTM → EDBD 09:48 → EDSEX 09:48 → C.EDA 09:50 → C.4E 16:17
PROVIDERS: ADMIT Internal Medicine; ATTEND Internal Medicine
DX: R53.1 Weakness (principal); N39.0 Urinary tract infection, site not specified; R26.9 Unspecified abnormalities of gait and mobility; E46 Unspecified protein-calorie malnutrition; E53.8 Deficiency of other specified B group vitamins; F32.9 Major depressive disorder, single episode, unspecified; I10 Essential (primary) hypertension; G35 Multiple sclerosis; Z68.1 Body mass index [BMI] 19.9 or less, adult; Z87.891 Personal history of nicotine dependence; Z88.0 Allergy status to penicillin; Z88.2 Allergy status to sulfonamides; Z79.899 Other long term (current) drug therapy

== ENCOUNTER 2021-06-20 14:51 | Inpatient (IN) ==
[2021-06-20 18:00] LABS: Basophils % (auto) 1.2 %; Eosinophils % (auto) 3.6 %; Hematocrit (blood only) 36.2 % (37-47); Hemoglobin 12.1 g/dL (12.0-16.0); Immature Granulocytes # (auto) 0.02 K/uL (0.00-0.02); Immature Granulocytes % (auto) 0.2 %; Lymphocytes # (auto) 2.07 K/uL (1.2-3.4); Lymphocytes % (auto) 25.1 %; Mean Corpuscular Hgb Conc 33.4 g/dL (32-36); Mean Corpuscular Volume 107.7 fL (80-100); Mean Platelet Volume 10.1 fL (7.4-10.4); Monocytes # (auto) 0.82 K/uL (0.11-0.59); Monocytes % (auto) 9.9 %; Neutrophils # (auto) 4.94 K/uL (1.4-6.5); Platelet Count 360 K/uL (130-400); RDW Coefficient of Variation 13.7 % (11.5-14.5); RDW Standard Deviation 53.6 fL (36.4-46.3); Red Blood Count 3.36 M/uL (4.2-5.4); White Blood Count 8.25 K/uL (4.8-10.8)
--- NOTE | 2021-06-20 18:08 | Emergency Department Note ---
Impression & Plan Cellulitis, Leg wound, right, Edema leg ED Provider Note NAME: RYAN DOS SANTOS AGE: 75 SEX: F : 1945 ARRIVES VIA: Walk-In INFORMANT: Patient ED PROVIDER(S): Ynag Rahman DO CHIEF COMPLAINT: swelling RLE HPI: Patient is a 75-year-old female who presents the ER after cutting her right posterior leg on a door about a month ago. She notes that she was placed on clindamycin and stopped it last week. She is continued to have swelling and has some pain in her left medial calf. She denies any fevers. No headache or change in vision. No chest pain or shortness of breath. No nausea, vomiting, or diarrhea. No dysuria, urgency, or frequency. No other exacerbating or remitting factors. She was seen and evaluated by Dr. Valencia and referred over for admission. ROS: See above HPI for pertinent positives & negatives. A total of 10 systems reviewed and were otherwise negative. PAST MEDICAL HISTORY:See Below PAST SURGICAL HISTORY:See Below FAMILY HISTORY:See Below SOCIAL HISTORY:See Below HOME MEDICATIONS:See Below ALLERGIES:See Below VITALS:See Below PHYSICAL EXAMINATION: GENERAL: Sitting up in bed, alert, well appearing, well nourished, no distress, non-toxic EYE EXAM: normal conjunctiva. PERRL and EOM's grossly intact. OROPHARYNX: no exudate, no erythema, lips, buccal mucosa, and tongue normal and mucous membranes are moist NECK: supple, no nuchal rigidity, no adenopathy, non-tender LUNGS: Clear to auscultation. Normal chest wall mechanics HEART: no murmurs, S1 normal and S2 normal ABDOMEN: abdomen soft, non-tender, normo-active bowel sounds, no masses, no rebound or guarding. BACK: Back is symmetrical on inspection and there is no deformity, no midline tenderness, no CVA tenderness. SKIN: Laceration right posterior calf with no significant drainage. Right calf is larger than left. Mild pitting edema. Skin is not warm. Faint overlying redness to the mid kuhn. UPPER EXTREMITIES: upper extremities are grossly normal. LOWER EXTREMITIES: No pitting edema. NEURO EXAM: Normal sensorium, cranial nerves II-XII grossly intact, normal speech, no gross weakness of arms, no gross weakness of legs. MEDICAL DECISION MAKING: Patient is a 75-year-old female referred in by her PCP for failure of outpatient treatment as she was on a weeks worth of antibiotics and still has redness and swelling of her right lower extremity getting worse. IV was established blood was obtained. Labs show no significant leukocytosis. BMP, LFTs, bili, and was unremarkable. Covid was ordered and pending. Patient was given IV daptomycin due to allergies. Discussed with hospitalist for further evaluation. Triage Nursing notes reviewed. Limited review of prior medical records performed Vital Signs: reviewed and remarkable for HTN Differential diagnosis: Cellulitis, abscess, MRSA infection, DVT, necrotizing fasciitis, dermatitis, drug eruption, allergic reaction, as well as other pathologies. ER treatment provided: See below Diagnostics interpreted by me: ECG: none Cardiac Monitoring: An order was placed for continuous cardiac monitoring. The monitor shows a rate of 101 with sinus rhythm. Laboratory studies: As stated above and show below. Imaging studies: Duplex was negative Consultation(s): Discussed with the hospitalist for admission Procedures: none Critical Care: None Past Med/Surg History Medical History (Updated 06/20/21 @ 23:10 by Yang Rahman DO) B12 deficiency Depression Generalized weakness HTN (hypertension) Subdural hematoma "s/p surgical intervention " Surgical History H/O colonoscopy History of dental surgery Social History Smoking Status: Former smoker Tobacco Type: Cigarettes Preferred Language: Pashto marital status: Single current occupational status: retired Feels Safe at Home: Yes Allergies Allergies Allergy/AdvReac Type Severity Reaction Status Date / Time ampicillin Allergy Intermediate Hives Verified 06/20/21 18:25 ciprofloxacin [From Cipro] Allergy Intermediate Hives Verified 06/20/21 18:25 Penicillins Allergy Intermediate Hives Verified 06/20/21 18:25 Sulfa (Sulfonamide Allergy Intermediate Hives Verified 06/20/21 18:25 Antibiotics) tetracycline Allergy Intermediate Hives Verified 06/20/21 18:25 metronidazole [From Flagyl] AdvReac Mild Rash Verified 06/20/21 18:25 Home Meds Home Medications Medication Instructions Recorded Confirmed desvenlafaxine succinate 50 mg 50 mg PO QAM 06/10/19 06/20/21 tablet,extended release 24 hr (Pristiq) losartan 25 mg tablet (Cozaar) 25 mg PO QAM 06/10/19 06/20/21 cyanocobalamin (vitamin B-12) 1,000 mcg PO DAILY 06/15/19 06/20/21 1,000 mcg capsule alendronate 70 mg tablet 70 mg PO WK 06/20/21 06/20/21 Results & Data (ED) Vital Signs Vital Signs - 24 hr 06/20/21 15:33 06/20/21 18:30 06/20/21 20:23 Temperature 37 C Temperature Source Temporal Artery Scan Pulse Rate 91 H 83 83 Pulse Rate [Apical] 86 Pulse Rate from SpO2 Sensor Respiratory Rate 18 25 H 19 Respiratory Effort / Characteristics Non-Labored Spontaneous Non-Labored Respiratory Depth Normal Normal Respiratory Pattern Regular Blood Pressure 149/95 H 180/89 H 179/100 H Blood Pressure [Right Arm] 180/89 H Blood Pressure Mean 113 119 126 Blood Pressure Mean [Right Arm] 119 Blood Pressure Position Sitting Pulse Oximetry 99 96 98 Oxygen Delivery Method Room Air Room Air Sepsis Recent Fever Within 48 Hours No Sepsis New/Unexplained Change in Mental Status N/A Sepsis Action Taken by Nursing No Action Required 06/20/21 20:30 06/20/21 21:00 06/20/21 21:30 Temperature Temperature Source Pulse Rate 94 H 92 H 96 H Pulse Rate [Apical] Pulse Rate from SpO2 Sensor 91 H 92 H 95 H Respiratory Rate 20 21 27 H Respiratory Effort / Characteristics Respiratory Depth Respiratory Pattern Blood Pressure 175/91 H 165/110 H 172/108 H Blood Pressure [Right Arm] Blood Pressure Mean 119 128 129 Blood Pressure Mean [Right Arm] Blood Pressure Position Pulse Oximetry 96 97 99 Oxygen Delivery Method Sepsis Recent Fever Within 48 Hours Sepsis New/Unexplained Change in Mental Status Sepsis Action Taken by Nursing 06/20/21 22:27 Temperature Temperature Source Pulse Rate 112 H Pulse Rate [Apical] Pulse Rate from SpO2 Sensor 113 H Respiratory Rate 20 Respiratory Effort / Characteristics Respiratory Depth Respiratory Pattern Blood Pressure 194/131 H Blood Pressure [Right Arm] Blood Pressure Mean 152 Blood Pressure Mean [Right Arm] Blood Pressure Position Pulse Oximetry 94 Oxygen Delivery Method Sepsis Recent Fever Within 48 Hours Sepsis New/Unexplained Change in Mental Status Sepsis Action Taken by Nursing Laboratory Data Result diagrams: 06/20/21 16:56 06/20/21 16:56 Lab Results 06/20/21 06/20/21 06/20/21 Range/Units 16:56 16:56 22:27 WBC 8.25 (4.8-10.8) K/uL RBC 3.36 L (4.2-5.4) M/uL Hgb 12.1 (12.0-16.0) g/dL Hct 36.2 L (37-47) % MCV 107.7 H (80-100) fL MCH 36.0 H (25-34) pg MCHC 33.4 (32-36) g/dL RDW Std Deviation 53.6 H (36.4-46.3) fL RDW Coeff of Love 13.7 (11.5-14.5) % Plt Count 360 (130-400) K/uL MPV 10.1 (7.4-10.4) fL Immature Gran % (Auto) 0.2 % Neut % (Auto) 60.0 % Lymph % (Auto) 25.1 % Snyder % (Auto) 9.9 % Eos % (Auto) 3.6 % Baso % (Auto) 1.2 % Neut # (Auto) 4.94 (1.4-6.5) K/uL Lymph # (Auto) 2.07 (1.2-3.4) K/uL Snyder # (Auto) 0.82 H (0.11-0.59) K/uL Eos # (Auto) 0.30 (0-0.5) K/uL Baso # (Auto) 0.10 (0-0.2) K/uL Immature Gran # (Auto) 0.02 (0.00-0.02) K/uL Sodium 138 (136-145) mmol/L Potassium 4.9 (3.5-5.1) mmol/L Chloride 107 (98-107) mmol/L Carbon Dioxide 22 (21-32) mmol/L Anion Gap 9.0 (3-11) BUN 17 (7-18) mg/dl Creatinine 0.89 (0.6-1.2) mg/dl Est Cr Clr Drug Dosing 49.9 ml/min Est GFR ( Amer) 74.0 ml/min Est GFR (Non-Af Amer) 63.8 ml/min BUN/Creatinine Ratio 18.5 (10-20) Glucose 81 (70-99) mg/dl Calcium 9.6 (8.5-10.1) mg/dl Total Bilirubin 0.2 (0.2-1) mg/dl AST 58 H (15-37) U/L ALT 39 (12-78) U/L Alkaline Phosphatase 79 (45-117) U/L Total Protein 8.0 (6.4-8.2) gm/dl Albumin 3.9 (3.4-5.0) gm/dl Globulin 4.1 H (2.5-4.0) gm/dl Albumin/Globulin Ratio 0.9 (0.9-2) COVID-19 Eval Order Covid19 at [facility] Administered Medications Discontinued Medications Daptomycin 225 mg/ Syringe 4.5 mls @ 2.25 mls/min IV NOW ONE; Protocol Stop: 06/20/21 19:27 Last Admin: 06/20/21 20:20 Dose: 2.25 mls/min Documented by: [id number] Imaging Data Radiologist's Impression: Venous Doppler Study 06/20/21 18:03 ULTRASOUND RIGHT LOWER EXTREMITY VENOUS CLINICAL HISTORY: Right calf injury. Swelling. COMPARISON STUDY: No priors. TECHNIQUE: Real-time, grayscale, and color Doppler sonography of the deep veins of the right lower extremity was performed from the inguinal crease to the calf. Compression and augmentation were utilized. FINDINGS: There is no sonographic evidence of deep venous thrombosis identified in the right lower extremity. The common femoral, superficial femoral, and popliteal veins are patent and normally compressible. The greater saphenous vein and the profunda femoris vein at the junction with the common femoral vein are clear. The visualized calf veins are patent. Subcutaneous soft tissue edema is noted in the medial calf. IMPRESSION: There is no sonographic evidence of deep venous thrombosis identified in the right lower extremity. ACT 112: Negative or not required by law. Electronically signed by: aH Alvarez M.D. 06/20/2021 6:59 PM Discharge Plan Visit Data Chief Complaint: Infection Stated Complaint: SENT BY TO BE ADMITTED-INFECTION IN LEG ED Provider: Yang Rahman Discharge Problem: Cellulitis, Leg wound, right, Edema leg Forms Stand Al[facility] Pres[facility] Prescriptions: No Action losartan [Cozaar] 25 mg tablet 25 mg PO QAM RF: 0 desvenlafaxine succinate [Pristiq] 50 mg tablet extended release 24 hr 50 mg PO QAM RF: 0 cyanocobalamin (vitamin B-12) 1,000 mcg Capsule 1,000 mcg PO DAILY RF: 0 alendronate 70 mg tablet 70 mg PO WK RF: 0 Referrals Referrals: Carlos Bhagat MD [Primary Care Provider] - Discharge Problem: Cellulitis Qualifiers: Site of cellulitis: unspecified site Qualified Code(s): L03.90 - Cellulitis, unspecified Leg wound, right Qualifiers: Encounter type: initial encounter Qualified Code(s): S81.801A - Unspecified open wound, right lower leg, initial encounter
[2021-06-20 18:09] LABS: Albumin Level 3.9 gm/dl (3.4-5.0); BUN Creatinine Ratio 18.5 (10-20); Calcium 9.6 mg/dl (8.5-10.1); Creatinine Clr Calc Pharmacy 49.9 ml/min; Est GFR (Non-African American) 63.8 ml/min; Potassium 4.9 mmol/L (3.5-5.1)
[2021-06-20 18:12] LABS: Albumin Globulin Ratio 0.9 (0.9-2); Bilirubin,Total 0.2 mg/dl (0.2-1); Globulin 4.1 gm/dl (2.5-4.0)
--- NOTE | 2021-06-20 19:01 | Ultrasound Report ---
ULTRASOUND RIGHT LOWER EXTREMITY VENOUS CLINICAL HISTORY: Right calf injury. Swelling. COMPARISON STUDY: No priors. TECHNIQUE: Real-time, grayscale, and color Doppler sonography of the deep veins of the right lower ex tremity was performed from the inguinal crease to the calf. Compression and augmentation were utilize d. FINDINGS: There is no sonographic evidence of deep venous thrombosis identified in the right lower ex tremity. The common femoral, superficial femoral, and popliteal veins are patent and normally salvador sible. The greater saphenous vein and the profunda femoris vein at the junction with the common femor al vein are clear. The visualized calf veins are patent. Subcutaneous soft tissue edema is noted in t he medial calf. IMPRESSION: There is no sonographic evidence of deep venous thrombosis identified in the right lower extremity. ACT 112: Negative or not required by law. Electronically signed by: Ha Alvarez M.D. 06/20/2021 6:59 PM
[2021-06-20] MEDS ORDERED: DAPTOmycin 225 MG in SYRINGE 0 ML IV ONE (19:26)
[2021-06-20] MEDS ORDERED: CONSULT PHARMACY STA (21:54)
[2021-06-21 00:28] LABS: Appearance Urine Clear (Clear); Bilirubin Urine Negative (Negative); Blood Urine Negative (Negative); Color Urine Yellow; Glucose Urine UA Negative (Negative); Ketones Urine 1+ (Negative); Leukocyte Esterase Urine Negative (Negative); Nitrite Urine Negative (Negative); Protein Urine Negative (Negative); Specific Gravity Urine 1.014 (1.000-1.030); Urobilinogen Urine Negative (Negative)
--- NOTE | 2021-06-21 01:34 | History and Physical Report ---
DATE OF ADMISSION: 06/20/2021. CHIEF COMPLAINT: Right calf wound infection. HISTORY OF PRESENT ILLNESS: A 75-year-old female who has past medical history significant for hypertension, diastolic dysfunction, B12 deficiency, fatty liver, chronic kidney disease stage III, osteoporosis, multiple sclerosis, depression, history of C. diff infection in the past, history of subdural hemorrhage. The patient lives with her , comes because of the right calf wound. The patient about 3 weeks ago, she hit the car door with her calf and she was treated with clindamycin for 10 days. She went for followup appointment with PCP and was noticed some redness in the right lower extremity and was prompted to come to the ER. Currently resting comfortably. The patient says she has some mild pain in the right lower extremity and she is able to ambulate okay, but has some pain while ambulating. Her hemodynamics are stable. Denies any fever or chills. Denies any headache. No blurred vision, no earache, no runny nose, no sore throat, no cough, no dysphagia, no nausea, no chest pain, no shortness of breath, no abdominal pain. Normal bowel and bladder movements. Appetite is okay. ALLERGIES: AMPICILLIN, CIPROFLOXACIN, PENICILLIN, SULFA ANTIBIOTICS, TETRACYCLINE, METRONIDAZOLE. PAST MEDICAL HISTORY: As mentioned above. PAST SURGICAL HISTORY: Colonoscopy, dental surgery, subdural hematoma requiring surgical intervention in 2010, removal of ovarian cyst 30 years ago from 2011. MEDICATIONS: The patient is on alendronate 70 mg p.o. weekly, vitamin B12 1000 mcg p.o. daily, Pristiq 50 mg p.o. a.m., Cozaar 25 mg p.o. a.m. FAMILY HISTORY: Significant for brother has allergies, father has heart disorder, mother has erika's disease, brother has prostate cancer. SOCIAL HISTORY: Former smoker, smoked for 10 years, quit in 1974, one glass of alcohol, one glass of wine nightly. No drug use. REVIEW OF SYSTEMS: As per HPI. Rest of the review of systems negative. PHYSICAL EXAMINATION: GENERAL: The patient is of moderate build, not in acute distress. VITAL SIGNS: Temperature 37, pulse 83, respiratory rate 19, blood pressure 179/100, oxygen 98% on room air. HEENT: Pupils equal, round and reactive to light. Oral mucosa moist. NECK: No JVD, no neck masses. CARDIOVASCULAR: S1 and S2 heard. Regular rate and rhythm. No murmur, no gallop. RESPIRATORY SYSTEM: Normal AP diameter. No accessory muscle use. No wheezing, no crackles. ABDOMEN: Soft, bowel sounds present, nontender, no distention. CENTRAL NERVOUS SYSTEM: Cranial nerves II through XII grossly intact, nonfocal. EXTREMITIES: Right lower extremity below the calf region is erythematous and warm and mildly tender to palpation and there is an open wound in the right calf with some granulomatous tissue with no obvious drainage seen, not foul smelling. LABORATORY DATA: WBC 8.2, hemoglobin 12.1, hematocrit 36.2, platelets 360. Sodium 138, potassium 4.9, chloride 107, bicarbonate 22, BUN 17, creatinine 0.8, serum glucose 81, calcium 9.6, total bilirubin 0.2, AST 58, ALT 39, alkaline phosphatase 79 total. IMAGING DATA: Venous Doppler, no DVT. ASSESSMENT AND PLAN: This is a 75-year-old female who presents right calf wound. 1. Right calf wound and cellulitis: Failed outpatient treatment with 10 days of clindamycin. The calf wound has not been closed and now also developing possible cellulitis. Starting on daptomycin and Invanz as the patient is allergic to penicillins. Will consult wound care Follow the cultures. 2. History of hypertension: Continue losartan. 3. Vitamin B12 deficiency: Continue vitamin B12 supplements. 4. History of multiple sclerosis: Currently not on any medications. Follow with neurology. 5. History of chronic kidney disease stage III: Creatinine 0.8. Will follow the labs. 6. History of diastolic dysfunction: Monitor for any volume overload. Currently on losartan. Not on any diuretics. 7. History of C. difficile infection in the past: Will place on probiotics. 8. Deep venous thrombosis prophylaxis: Placed on Lovenox. DISPOSITION: Closely monitor in the medical floor. PT/OT prior to discharge. Social service to help with discharge planning. Job ID: [id number] [facility]
[2021-06-21] MEDS ORDERED: ONDANSETRON INJ 2 MG/ML 2 ML VIAL IV PRN (02:16)
[2021-06-21] MEDS ORDERED: POLYETHYLENE (MIRALAX) 17 GM PACK PO PRN (02:16)
[2021-06-21] MEDS ORDERED: ACETAMINOPHEN 325 MG TAB PO PRN (02:16)
[2021-06-21] MEDS ORDERED: ERTAPENEM CONSULT ACTIVE PRN (02:36)
[2021-06-21] MEDS ORDERED: ERTAPENEM SODIUM 1,000 MG in SODIUM CHLORIDE 0.9% 50 ML IV SCH (03:00)
[2021-06-21] MEDS: ENOXAPARIN INJ 40 MG/0.4 ML SYR SQ SCH (03:29)
[2021-06-21] MEDS: ADVANCED PROBIOTIC 1250 MG CAPSULE PO SCH ×3 (03:30→20:27)
[2021-06-21] MEDS: CYANOCOBALAMIN 500 MCG TABLET (VITAMIN B-12) PO SCH (07:53)
[2021-06-21] MEDS: LOSARTAN POTASSIUM 25 MG TAB PO SCH (07:53)
[2021-06-21] MEDS ORDERED: ALENDRONATE SODIUM 70 MG TAB PO SCH (09:00)
--- NOTE | 2021-06-21 19:33 | Hospitalist Progress Note ---
Date of Service June 21, 2021 Assessment & Plan (1) Leg wound, right: (2) Cellulitis: Plan: 1. Right calf wound and cellulitis: Failed outpatient treatment with 10 days of clindamycin. The calf wound has not been closed and now also developing possible cellulitis. -Wound culture: Pending Blood cultures: Pending -Responding well to daptomycin and ceftriaxone day #2 Awaiting wound cultures Anticipate oral antibiotics and discharge to home tomorrow 2. History of hypertension: Stable Continue losartan. 3. Vitamin B12 deficiency: Continue vitamin B12 supplements. 4. History of multiple sclerosis: Asymptomatic Currently not on any medications. Follow with neurology. 5. History of chronic kidney disease stage III: Creatinine 0.8. 6. History of diastolic dysfunction: Euvolemic Currently on losartan. Not on any diuretics. 7. History of C. difficile infection in the past: Will place on probiotics. 8. Deep venous thrombosis prophylaxis:Lovenox. DISPOSITION: Anticipate discharge home tomorrow with oral antibiotics Admission and Anticipated Discharge Date Admission Date: June 20, 2021 Subjective Follow-up for right lower extremity wound infection, cellulitis, etc. Seen resting in bed, comfortable, not in distress Good spirits States right lower extremity is improving Minimal discomfort No other symptoms Review of Systems Review of Systems: all noted and negative except for above Physical Exam Physical Exam: General- oriented x 3, not in distress, speaks in sentences with no effort or accessory muscle use Eyes- anicteric Neck- no JVD Lungs- clear breath sounds bilaterally, no rales/wheezes Heart- normal rate, regular rhythm; no murmurs Abdomen- normal bowel sounds, nondistended, soft, nontender Extremities- no pretibial edema, no calf tenderness Right lower extremity: Calf wound healing well Minimal erythema, edema, tenderness, warmth Neuro- alert, oriented x 3; no gross focal neurologic deficits Skin- warm & dry Results & Data Results & Data ([facility]) Vital Signs (Past 12 Hours) Vital Signs Temp Pulse Resp BP Pulse Ox 06/21/21 15:52 37.2 C 112 H 16 116/72 93 06/21/21 08:32 37.0 C 102 H 16 128/73 94 all noted and reviewed including below (1) Leg wound, right Encounter type: initial encounter Qualified Code(s): S81.801A - Unspecified open wound, right lower leg, initial encounter (2) Cellulitis Site of cellulitis: unspecified site Qualified Code(s): L03.90 - Cellulitis, unspecified
[2021-06-21] MEDS: cefTRIAXone SODIUM 1,000 MG in DEXTROSE 5% 50 ML IV SCH (20:27)
[2021-06-21] MEDS: DAPTOmycin 225 MG in SYRINGE 0 ML IV SCH (20:27)
[2021-06-21] MEDS ORDERED: ZOLPIDEM TARTRATE 5 MG TAB PO STA (23:12)
[2021-06-22] MEDS: ENOXAPARIN INJ 40 MG/0.4 ML SYR SQ SCH (05:46)
[2021-06-22] MEDS: ADVANCED PROBIOTIC 1250 MG CAPSULE PO SCH ×2 (08:08→20:21)
[2021-06-22] MEDS: CYANOCOBALAMIN 500 MCG TABLET (VITAMIN B-12) PO SCH (08:08)
[2021-06-22] MEDS: LOSARTAN POTASSIUM 25 MG TAB PO SCH (08:08)
[2021-06-22] MEDS: cefTRIAXone SODIUM 1,000 MG in DEXTROSE 5% 50 ML IV SCH (20:21)
[2021-06-22] MEDS: DAPTOmycin 225 MG in SYRINGE 0 ML IV SCH (21:13)
[2021-06-22] MEDS ORDERED: ZOLPIDEM TARTRATE 5 MG TAB PO PRN (21:46)
[2021-06-23] MEDS: ENOXAPARIN INJ 40 MG/0.4 ML SYR SQ SCH (06:10)
[2021-06-23] MEDS ORDERED: diphenhydrAMINE Capsule 25 MG CAP ONE (06:25)
[2021-06-23] MEDS ORDERED: diphenhydrAMINE Capsule 25 MG CAP PO STA (06:34)
[2021-06-23 08:05] LABS: Creatinine Clr Calc Pharmacy 47.2 ml/min; Est GFR (African American) 69.3 ml/min; Est GFR (Non-African American) 59.8 ml/min
[2021-06-23] MEDS: LOSARTAN POTASSIUM 25 MG TAB PO SCH (08:44)
[2021-06-23] MEDS: ADVANCED PROBIOTIC 1250 MG CAPSULE PO SCH (08:44)
[2021-06-23] MEDS: CYANOCOBALAMIN 500 MCG TABLET (VITAMIN B-12) PO SCH (08:44)
[2021-06-23] MEDS ORDERED: DESVENLAFAXINE SUCCINATE PO SCH (09:00)
--- NOTE | 2021-06-23 18:14 | Discharge Summary ---
Date of Service June 23, 2021 Admission HPI Per Admitting Provider CHIEF COMPLAINT: Right calf wound infection. HISTORY OF PRESENT ILLNESS: A 75-year-old female who has past medical history significant for hypertension, diastolic dysfunction, B12 deficiency, fatty liver, chronic kidney disease stage III, osteoporosis, multiple sclerosis, depression, history of C. diff infection in the past, history of subdural hemorrhage. The patient lives with her , comes because of the right calf wound. The patient about 3 weeks ago, she hit the car door with her calf and she was treated with clindamycin for 10 days. She went for followup appointment with PCP and was noticed some redness in the right lower extremity and was prompted to come to the ER. Currently resting comfortably. The patient says she has some mild pain in the right lower extremity and she is able to ambulate okay, but has some pain while ambulating. Her hemodynamics are stable. Denies any fever or chills. Denies any headache. No blurred vision, no earache, no runny nose, no sore throat, no cough, no dysphagia, no nausea, no chest pain, no shortness of breath, no abdominal pain. Normal bowel and bladder movements. Appetite is okay. Admission Exam (Per Admitting) Constitutional GENERAL: The patient is of moderate build, not in acute distress. VITAL SIGNS: Temperature 37, pulse 83, respiratory rate 19, blood pressure 179/100, oxygen 98% on room air. HEENT: Pupils equal, round and reactive to light. Oral mucosa moist. NECK: No JVD, no neck masses. CARDIOVASCULAR: S1 and S2 heard. Regular rate and rhythm. No murmur, no gallop. RESPIRATORY SYSTEM: Normal AP diameter. No accessory muscle use. No wheezing, no crackles. ABDOMEN: Soft, bowel sounds present, nontender, no distention. CENTRAL NERVOUS SYSTEM: Cranial nerves II through XII grossly intact, nonfocal. EXTREMITIES: Right lower extremity below the calf region is erythematous and warm and mildly tender to palpation and there is an open wound in the right calf with some granulomatous tissue with no obvious drainage seen, not foul smelling. Discharge Data Consultations 06/20/21 19:26 ED Decision to Admit Stat Procedures Performed ULTRASOUND RIGHT LOWER EXTREMITY VENOUS CLINICAL HISTORY: Right calf injury. Swelling. COMPARISON STUDY: No priors. TECHNIQUE: Real-time, grayscale, and color Doppler sonography of the deep veins of the right lower extremity was performed from the inguinal crease to the calf. Compression and augmentation were utilized. FINDINGS: There is no sonographic evidence of deep venous thrombosis identified in the right lower extremity. The common femoral, superficial femoral, and popliteal veins are patent and normally compressible. The greater saphenous vein and the profunda femoris vein at the junction with the common femoral vein are clear. The visualized calf veins are patent. Subcutaneous soft tissue edema is noted in the medial calf. IMPRESSION: There is no sonographic evidence of deep venous thrombosis identified in the right lower extremity. Hospital Course (1) Leg wound, right: (2) Cellulitis: 1. Right calf wound and cellulitis: Failed outpatient treatment with 10 days of clindamycin. The calf wound has not been closed and now also developing possible cellulitis. -Wound culture: Gram-negative bacilli Blood cultures: Negative -Responded well to daptomycin and ceftriaxone day #3 Leg edema no erythema, tenderness resolved -Awaiting final wound culture Will prescribe cefdinir 3 mg twice a day x7 days Will continue to follow-up wound culture identification and sensitivity- -we will call patient if changes to p.o. cefdinir need to be made Follow-up with PCP this week 2. History of hypertension: Stable Continue losartan. 3. Vitamin B12 deficiency: Continue vitamin B12 supplements. 4. History of multiple sclerosis: Asymptomatic Currently not on any medications. Follow with neurology. 5. History of chronic kidney disease stage III: Creatinine 0.8. 6. History of diastolic dysfunction: Euvolemic Currently on losartan. Not on any diuretics. 7. History of C. difficile infection in the past: Advised to take probiotic supplement, yogurt daily x1 month at least 8. Deep venous thrombosis prophylaxis:Lovenox. DISPOSITION: [place] home today Follow-up with PCP this week
--- NOTE | 2021-06-23 18:14 | Hospitalist Progress Note ---
Date of Service June 23, 2021 Assessment & Plan (1) Leg wound, right: (2) Cellulitis: Plan: 1. Right calf wound and cellulitis: Failed outpatient treatment with 10 days of clindamycin. The calf wound has not been closed and now also developing possible cellulitis. -Wound culture: Gram-negative bacilli Blood cultures: Negative -Responding well to daptomycin and ceftriaxone day #3 -Awaiting final wound culture Will prescribe cefdinir 3 mg twice a day x7 days Will continue to follow-up wound culture identification and sensitivity Follow-up with PCP this week 2. History of hypertension: Stable Continue losartan. 3. Vitamin B12 deficiency: Continue vitamin B12 supplements. 4. History of multiple sclerosis: Asymptomatic Currently not on any medications. Follow with neurology. 5. History of chronic kidney disease stage III: Creatinine 0.8. 6. History of diastolic dysfunction: Euvolemic Currently on losartan. Not on any diuretics. 7. History of C. difficile infection in the past: Will place on probiotics. 8. Deep venous thrombosis prophylaxis:Lovenox. DISPOSITION: DC home today Follow-up with PCP this week Admission and Anticipated Discharge Date Admission Date: June 20, 2021 Subjective Follow-up for infected right lower leg wound, cellulitis, etc. Seen resting in bed, comfortable, in good spirits States she feels fine overall Denies leg pain Had 1 episode of loose stools this morning No abdominal pain, nausea vomiting, fevers or chills No other symptoms States that she is ready and like to go home today Review of Systems Review of Systems: all noted and negative except for above Physical Exam Physical Exam: General- oriented x 3, not in distress, speaks in sentences with no effort or accessory muscle use Eyes- anicteric Neck- no JVD Lungs- clear BS bilaterally, no crackles or wheezing appreciated Heart- normal rate, regular rhythm; no murmurs Abdomen- normal bowel sounds, nondistended, soft, nontender Extremities- no pretibial edema, no calf tenderness right lower extremity wound: Healing well No bleeding or discharge Edema/erythema/warmth/tenderness resolved Neuro- alert, oriented x 3; no gross focal neurologic deficits Skin- warm & dry Results & Data Results & Data ([facility]) Vital Signs (Past 12 Hours) Vital Signs Temp Pulse Resp BP Pulse Ox 06/23/21 12:24 36.8 C 96 H 18 130/80 95 06/23/21 07:18 36.8 C 94 H 16 142/76 H 95 all noted and reviewed including below (1) Leg wound, right Encounter type: initial encounter Qualified Code(s): S81.801A - Unspecified open wound, right lower leg, initial encounter (2) Cellulitis Site of cellulitis: unspecified site Qualified Code(s): L03.90 - Cellulitis, unspecified
== END 2021-06-23 13:18 | disposition home health service (06) | DRG 603 ==
LOC: ED 14:51 → 3W 21:54 → SUATTDRO 21:54 → 3W 06-21 01:11

== ENCOUNTER 2023-02-06 14:37 | Inpatient (IN) ==
--- NOTE | 2023-02-06 14:51 | Emergency Department Note ---
Impression & Plan Weakness, Acute UTI ADMIT ED Provider Note HPI: The patient is a 77-year-old female who states she has a history of multiple sclerosis, she is not currently on any medications for this, presents emergency department with a chief complaint of worsening lower extremity weakness and ambulatory dysfunction over the past 2 to 3 weeks. Patient states she attempted to contact [facility] neurology in regards to whether or not she should start some steroids but did not hear back as of today. States she sent a message yesterday. Patient states that she has had 2 falls in the past week, she no longer feels that she can get around her house despite the use of a walker. Patient states 2 nights ago she had a fall, states she contacted 911 and EMS arrived to her home, they were able to get her back on her feet and therefore she stayed at home and did not seek medical treatment in the hospital at that time. Patient states today she continued to feel weak and did not feel as if she can ambulate and therefore came to the ED to be assessed. On arrival here to the ED the patient is alert, she is in no acute distress, she does not have any focal deficits on my initial assessment. Patient is concerned that her symptoms are secondary to worsening multiple sclerosis ROS: - Per HPI *Outpatient medications and allergy history reviewed. *Pertinent external medical records reviewed. PE: General: Alert HEENT: Normocephalic, trachea midline Eyes: Extraocular eye movement is intact, no scleral erythema Pulmonary: Clear to auscultation bilaterally, no wheezing Cardio: Regular rate and rhythm GI: Abdomen is soft to palpation : No suprapubic tenderness MSK: No evidence of trauma or malformation of the extremities, no edema Skin: No evidence of rash Neuro: Alert, no focal deficits, equal bilateral grazing aide strength, no ataxia on [id number] testing bilaterally, no drift of the upper extremities or lower extremities with testing against Psychiatric: Cooperative electronic device monitor: (As interpreted by myself): - An order was placed for continuous cardiac monitoring - Patient was noted to be in sinus rhythm with a rate of 95 EKG: (As interpreted by myself): Sinus rhythm with a rate of 102 Intervals: Within normal limits ST changes: No ST elevation Time: 1507 Interventions provided in ED: -IV steroids, IV ceftriaxone, IV fluid bolus Differential Diagnosis: MS exacerbation, acute on chronic debility with ambulatory dysfunction, intracranial bleeding to include subdural hemorrhage, epidural hemorrhage, skull fracture, amongst other potential pathologies. Medical Decision Making: The patient is a 77-year-old female with history of multiple sclerosis, states that she follows with Dr. Wolf from [facility] neurology, presents emergency department with worsening ambulatory dysfunction from home. Patient states she has had multiple falls, states that she lives alone. Patient is concerned that her lower extremity weakness is a result of worsening MS. She denies any visual changes, denies any urinary symptoms, denies any motor or sensory deficits otherwise. On arrival here to the ED the patient is in no acute distress, she does not have any focal deficits, motor and sensory function is intact on my exam. CT imaging of the head was obtained that shows no evidence of any intracranial bleeding. Lab work shows a nonspecific leukocytosis at 11.5, hemoglobin is stable at 12.8, platelet count within normal limits, CMP does not show any evidence of critical electrolyte abnormalities. Procalcitonin indeterminate at 0.18, urinalysis does return possible for infection, nitrite positive and leukocyte esterase positive, patient was ordered IV ceftriaxone in the ED. I discussed the patient's symptoms with on-call neurology, Dr. Woodward, states that the patient's symptoms are nonspecific for MS exacerbation, this would be rare given how stable her disease has been up to this point. Recommended half dose steroid therapy with 500 of Solu-Medrol as the patient will be admitted to the hospital for PT OT consultation and further management in regards to her symptoms and UTI. Case was therefore discussed with the on-call midlevel provider for [facility], patient was placed for admission in stable condition for further management. Consultants: -Neurology, Dr. Woodward -Hospitalist service for [facility] Disposition discussion held by myself with: Patient Diagnosis: 1. Urinary tract infection, acute 2. Possible MS exacerbation with lower extremity 3. Ambulatory dysfunction with multiple falls 4. Leukocytosis, acute Disposition: Admission Chidi Hernández DO Emergency Medicine Past Med/Surg History Medical History (Updated 02/06/23 @ 18:58 by Chidi Hernández DO) B12 deficiency Depression Generalized weakness HTN (hypertension) Multiple sclerosis Subdural hematoma "s/p surgical intervention " Surgical History (Updated 02/06/23 @ 18:24 by Era Dumont PA-C) H/O colonoscopy History of dental surgery S/P removal of ovarian cyst Family History (Updated 02/06/23 @ 18:24 by Era Dumont PA-C) Other Cancer Heart disease Neurological disorder Social History Smoking Status: Never smoker Tobacco Type: Cigarettes Hx Alcohol Use: Yes Alcohol type: wine Hx Substance Use: No Preferred Language: Tongan Communication Ability: Effective [employer] Required: No Beliefs That Will Affect Care: None marital status: Single Current Living Situation: Alone current occupational status: retired Feels Safe at Home: Yes Assistive Devices: Cane and Glasses Allergies Allergies Allergy/AdvReac Type Severity Reaction Status Date / Time ampicillin Allergy Intermediate Hives Verified 02/06/23 15:59 ciprofloxacin [From Cipro] Allergy Intermediate Hives Verified 02/06/23 15:59 metronidazole [From Flagyl] Allergy Intermediate Rash Verified 02/06/23 15:59 Penicillins Allergy Intermediate Hives Verified 02/06/23 15:59 Sulfa (Sulfonamide Allergy Intermediate Hives Verified 02/06/23 15:59 Antibiotics) tetracycline Allergy Intermediate Hives Verified 02/06/23 15:59 Home Meds Home Medications Medication Instructions Recorded Confirmed desvenlafaxine succinate 50 mg 50 mg PO QAM 06/10/19 02/06/23 tablet,extended release 24 hr (Pristiq) cyanocobalamin (vitamin B-12) 1,000 mcg PO DAILY 06/15/19 02/06/23 1,000 mcg capsule alendronate 70 mg tablet 70 mg PO WK 06/20/21 02/06/23 amlodipine 2.5 mg tablet 2.5 mg PO QAM 02/06/23 02/06/23 Results & Data (ED) Vital Signs Vital Signs - 24 hr 02/06/23 14:45 02/06/23 16:15 02/06/23 16:20 Temperature 37 C Temperature Source Oral Pulse Rate 106 H 103 H Pulse Rate [Apical] 99 H Pulse Rhythm Regular Pulse Rhythm [Apical] Regular Pulse Strength Normal Pulse Strength [Apical] Normal Respiratory Rate 21 22 Respiratory Effort / Characteristics Non-Labored Spontaneous Non-Labored Spontaneous Respiratory Depth Normal Normal Respiratory Pattern Regular Regular Blood Pressure 172/97 H Blood Pressure [Left Arm] 147/81 H Blood Pressure Mean 122 Blood Pressure Mean [Left Arm] 103 Blood Pressure Position Lying Blood Pressure Position [Left Arm] Lying Pulse Oximetry 96 97 Oxygen Delivery Method Room Air Room Air Sepsis Recent Fever Within 48 Hours No Sepsis New/Unexplained Change in Mental Status N/A Sepsis Action Taken by Nursing No Action Required 02/06/23 16:30 02/06/23 17:00 02/06/23 17:31 Temperature Temperature Source Pulse Rate 99 H 99 H 108 H Pulse Rate [Apical] Pulse Rhythm Pulse Rhythm [Apical] Pulse Strength Pulse Strength [Apical] Respiratory Rate 21 21 19 Respiratory Effort / Characteristics Respiratory Depth Respiratory Pattern Blood Pressure 161/84 H 150/97 H 158/87 H Blood Pressure [Left Arm] Blood Pressure Mean 109 114 110 Blood Pressure Mean [Left Arm] Blood Pressure Position Blood Pressure Position [Left Arm] Pulse Oximetry 97 97 96 Oxygen Delivery Method Room Air Room Air Room Air Sepsis Recent Fever Within 48 Hours Sepsis New/Unexplained Change in Mental Status Sepsis Action Taken by Nursing Laboratory Data 02/06/23 15:40 02/06/23 15:40 Lab Results 02/06/23 02/06/23 02/06/23 Range/Units 15:40 15:40 15:40 WBC 11.55 H (4.8-10.8) K/ul RBC 3.52 L (4.20-5.40) M/uL Hgb 12.8 (12.0-16.0) g/dl Hct 38.1 (37.0-47.0) % MCV 108.2 H (80.0-100.0) fL MCH 36.4 H (25.0-34.0) pg MCHC 33.6 (32.0-36.0) g/dL RDW Std Deviation 51.4 H (36.4-46.3) fL RDW Coeff of Love 12.8 (11.5-14.5) % Plt Count 255 (130-400) K/uL MPV 10.1 (9.4-12.4) fL Immature Gran % (Auto) 0.4 % Neut % (Auto) 66.8 % Lymph % (Auto) 12.8 % [place] % (Auto) 18.1 % Eos % (Auto) 1.1 % Baso % (Auto) 0.8 % Neut # (Auto) 7.71 H (1.40-6.50) K/uL Lymph # (Auto) 1.48 (1.2-3.4) K/uL [place] # (Auto) 2.09 H (0.11-0.59) K/uL Eos # (Auto) 0.13 (0-0.50) K/uL Baso # (Auto) 0.09 (0-0.2) K/uL Immature Gran # (Auto) 0.05 (0.01-0.20) K/uL PT 11.2 (9.0-12.0) Seconds INR 1.0 (0.9-1.1) Sodium 135 L (136-145) mmol/L Potassium 4.1 (3.5-5.1) mmol/L Chloride 99 (98-107) mmol/L Carbon Dioxide 27 (21-32) mmol/L Anion Gap 9 (3-11) BUN 18 (6-23) mg/dl Creatinine 0.75 (0.6-1.2) mg/dl Est Cr Clr Drug Dosing 57.4 ml/min Est GFR ( Amer) 89.7 ml/min Est GFR (Non-Af Amer) 77.4 ml/min BUN/Creatinine Ratio 24.0 H (10-20) Glucose 104 H (70-99(Fasting)) mg/dl Lactate (0.4-2.0) mmol/L Calcium 9.8 (8.6-10.3) mg/dl Total Bilirubin 0.9 (0.2-1.0) mg/dl AST 43 H (13-39) U/L ALT 26 (7-52) U/L Alkaline Phosphatase 78 (34-104) U/L Total Protein 7.5 (6.0-8.3) gm/dl Albumin 4.4 (3.4-5.0) gm/dl Globulin 3.1 (2.5-4.0) gm/dl Albumin/Globulin Ratio 1.4 (0.9-2) Urine Color Urine Appearance (Clear) Urine pH (4.5-7.5) Ur Specific [place] (1.000-1.030) Urine Protein (Negative) Urine Glucose (UA) (Negative) Urine Ketones (Negative) Urine Blood (Negative) Urine Nitrite (Negative) Urine Bilirubin (Negative) Urine Urobilinogen (Negative) Ur Leukocyte Esterase (Negative) Urine WBC (Auto) (0-5) /hpf Urine RBC (Auto) (0-4) /hpf U Hyaline Cast (Auto) (0-5) /lpf U Epithel Cells (Auto) (0-5) /lpf Urine Bacteria (Auto) (Negative) Urine Yeast SARS-CoV-2, RNA, NAAT (NEGATIVE) 02/06/23 02/06/23 02/06/23 Range/Units 17:40 17:45 18:17 WBC (4.8-10.8) K/ul RBC (4.20-5.40) M/uL Hgb (12.0-16.0) g/dl Hct (37.0-47.0) % MCV (80.0-100.0) fL MCH (25.0-34.0) pg MCHC (32.0-36.0) g/dL RDW Std Deviation (36.4-46.3) fL RDW Coeff of Love (11.5-14.5) % Plt Count (130-400) K/uL MPV (9.4-12.4) fL Immature Gran % (Auto) % Neut % (Auto) % Lymph % (Auto) % [place] % (Auto) % Eos % (Auto) % Baso % (Auto) % Neut # (Auto) (1.40-6.50) K/uL Lymph # (Auto) (1.2-3.4) K/uL [place] # (Auto) (0.11-0.59) K/uL Eos # (Auto) (0-0.50) K/uL Baso # (Auto) (0-0.2) K/uL Immature Gran # (Auto) (0.01-0.20) K/uL PT (9.0-12.0) Seconds INR (0.9-1.1) Sodium (136-145) mmol/L Potassium (3.5-5.1) mmol/L Chloride (98-107) mmol/L Carbon Dioxide (21-32) mmol/L Anion Gap (3-11) BUN (6-23) mg/dl Creatinine (0.6-1.2) mg/dl Est Cr Clr Drug Dosing ml/min Est GFR ( Amer) ml/min Est GFR (Non-Af Amer) ml/min BUN/Creatinine Ratio (10-20) Glucose (70-99(Fasting)) mg/dl Lactate 0.8 (0.4-2.0) mmol/L Calcium (8.6-10.3) mg/dl Total Bilirubin (0.2-1.0) mg/dl AST (13-39) U/L ALT (7-52) U/L Alkaline Phosphatase (34-104) U/L Total Protein (6.0-8.3) gm/dl Albumin (3.4-5.0) gm/dl Globulin (2.5-4.0) gm/dl Albumin/Globulin Ratio (0.9-2) Urine Color Yellow Urine Appearance Cloudy A (Clear) Urine pH 6.5 (4.5-7.5) Ur Specific [place] 1.011 (1.000-1.030) Urine Protein Negative (Negative) Urine Glucose (UA) Negative (Negative) Urine Ketones Trace H (Negative) Urine Blood Negative (Negative) Urine Nitrite Positive A (Negative) Urine Bilirubin Negative (Negative) Urine Urobilinogen Negative (Negative) Ur Leukocyte Esterase 3+ H (Negative) Urine WBC (Auto) >30 H (0-5) /hpf Urine RBC (Auto) 0-4 (0-4) /hpf U Hyaline Cast (Auto) 5-10 H (0-5) /lpf U Epithel Cells (Auto) 5-10 H (0-5) /lpf Urine Bacteria (Auto) 2+ H (Negative) Urine Yeast Not Reportable SARS-CoV-2, RNA, NAAT NEGATIVE (NEGATIVE) Administered Medications Discontinued Medications Sodium Chloride (Nss) 500 mls @ 999 mls/hr IV .Q31M [facility] Stop: 02/06/23 15:30 Last Infusion: 02/06/23 16:29 Dose: 0 mls/hr Documented By: Admin: 02/06/23 15:33 Dose: 999 mls/hr Documented By: REMINGTON Methylprednisolone 500 mg/ (Dextrose) 258 mls @ 266 mls/hr IV NOW STA Stop: 02/06/23 18:18 Last Admin: 02/06/23 17:44 Dose: 266 mls/hr Documented By: REMINGTON Imaging Data Radiologist's Impression: Head CT 02/06/23 14:49 CT OF THE HEAD WITHOUT CONTRAST CLINICAL HISTORY: weak, fall COMPARISON STUDY: Head CT May 07, 2013. CT DOSE: 537.48 mGy.cm TECHNIQUE: Helical axial images of the head were obtained without IV contrast. Automated exposure control was utilized for the study. A dose lowering technique was utilized adhering to the principles of ALARA. FINDINGS: No acute intracranial hemorrhage, midline shift or mass effect is pr esent. Prominence of the extra-axial spaces is unchanged. Mild white matter hypodensity suggests small vessel disease. The ventricular system is unremarkable. The basal cisterns are patent. No extra-axial collections are present. There are no findings to suggest left-sided juan holes are noted. Acute dural sinus thrombosis or acute territorial infarct. There is no acute calvarial fracture. IMPRESSION: 1. No acute intracranial findings. 2. No acute calvarial fracture. ACT 112: Negative or not required by law. Electronically signed by: Abdifatah Rod M.D. 02/06/2023 4:13 PM Discharge Plan Visit Data Chief Complaint: Weakness Stated Complaint: LEG WEAKNESS ED Provider: Chidi Hernández Discharge Problem: Weakness, Acute UTI Forms Stand Alone Forms: [facility] Prescriptions Prescriptions: No Action desvenlafaxine succinate [Pristiq] 50 mg tablet extended release 24 hr 50 mg PO QAM cyanocobalamin (vitamin B-12) 1,000 mcg Capsule 1,000 mcg PO DAILY alendronate 70 mg tablet 70 mg PO WK Rx Instructions: TAKES ON THURSDAY, PER PT "TAKE WHEN I REMEMBER". amlodipine 2.5 mg tablet 2.5 mg PO QAM Referrals Referrals: Carlos Bhagat MD [Primary Care Provider] -
[2023-02-06] MEDS ORDERED: SODIUM CHLORIDE 0.9% 500 ML IV SCH (15:00)
[2023-02-06 16:01] LABS: Basophils # (auto) 0.09 K/uL (0-0.2); Basophils % (auto) 0.8 %; Eosinophils # (auto) 0.13 K/uL (0-0.50); Eosinophils % (auto) 1.1 %; Hematocrit (blood only) 38.1 % (37.0-47.0); Hemoglobin 12.8 g/dl (12.0-16.0); Immature Granulocytes # (auto) 0.05 K/uL (0.01-0.20); Immature Granulocytes % (auto) 0.4 %; Lymphocytes # (auto) 1.48 K/uL (1.2-3.4); Lymphocytes % (auto) 12.8 %; Mean Corpuscular Hemoglobin 36.4 pg (25.0-34.0); Mean Corpuscular Hgb Conc 33.6 g/dL (32.0-36.0); Mean Corpuscular Volume 108.2 fL (80.0-100.0); Mean Platelet Volume 10.1 fL (9.4-12.4); Monocytes # (auto) 2.09 K/uL (0.11-0.59); Monocytes % (auto) 18.1 %; Neutrophils # (auto) 7.71 K/uL (1.40-6.50); Neutrophils % (auto) 66.8 %; Platelet Count 255 K/uL (130-400); RDW Coefficient of Variation 12.8 % (11.5-14.5); RDW Standard Deviation 51.4 fL (36.4-46.3); Red Blood Count 3.52 M/uL (4.20-5.40); White Blood Count 11.55 K/ul (4.8-10.8)
[2023-02-06 16:13] LABS: Albumin Globulin Ratio 1.4 (0.9-2); Albumin Level 4.4 gm/dl (3.4-5.0); Bilirubin,Total 0.9 mg/dl (0.2-1.0); Calcium 9.8 mg/dl (8.6-10.3); Creatinine Clr Calc Pharmacy 57.4 ml/min; Est GFR (African American) 89.7 ml/min; Est GFR (Non-African American) 77.4 ml/min; Globulin 3.1 gm/dl (2.5-4.0); Potassium 4.1 mmol/L (3.5-5.1); Total Protein 7.5 gm/dl (6.0-8.3)
--- NOTE | 2023-02-06 16:15 | CT Scan Report ---
CT OF THE HEAD WITHOUT CONTRAST CLINICAL HISTORY: weak, fall COMPARISON STUDY: Head CT May 07, 2013. CT DOSE: 537.48 mGy.cm TECHNIQUE: Helical axial images of the head were obtained without IV contrast. Automated exposure con trol was utilized for the study. A dose lowering technique was utilized adhering to the principles o f ALARA. FINDINGS: No acute intracranial hemorrhage, midline shift or mass effect is present. Prominence of th e extra-axial spaces is unchanged. Mild white matter hypodensity suggests small vessel disease. The v entricular system is unremarkable. The basal cisterns are patent. No extra-axial collections are pres ent. There are no findings to suggest left-sided juan holes are noted. Acute dural sinus thrombosis o r acute territorial infarct. There is no acute calvarial fracture. IMPRESSION: 1. No acute intracranial findings. 2. No acute calvarial fracture. ACT 112: Negative or not required by law. Electronically signed by: Abdifatah Rod M.D. 02/06/2023 4:13 PM
[2023-02-06 16:25] LABS: Prothrombin Time 11.2 Seconds (9.0-12.0)
[2023-02-06] MEDS ORDERED: methylPREDNISolone 500 MG in DEXTROSE 5% 250 ML IV STA (17:19)
--- NOTE | 2023-02-06 17:49 | History & Physical Report ---
Date of Service February 06, 2023 Assessment & Plan (1) Generalized weakness: (2) Multiple sclerosis: Plan: - R/o MS flare vs pseudoflare. Will rule out infection. Check blood culture, Pro-Genaro, lactic acid, UA, COVID, add biofire respiratory panel with complaints of sore throat and congestion on Thursday. -Consult neurology, patient was given Solu-Medrol 500 mg IV in the ER under instruction of Dr. Woodward who did not think that this sounded like an MS flare as it has been coming on for 2 to 3 weeks. Patient follows with Dr. Duran as an outpatient with [facility] -Patient is not on any medication to suppress MS- she was given a prescription for prednisone taper by Dr. Wolf as outpatient today however has not started that yet. Pt previously was on Rebiv injections but these were stopped last Fall 2021 due to worsening weakness with injections. -Check B12 level and folate macrocytosis, Continue supplementation daily -Takes Fosamax once a week on Wednesdays (3) HTN (hypertension): Plan: -Continue amlodipine 2.5 every morning, will order now as she missed her meds today (4) Depression: Plan: -May continue Pristiq DVT ppx: - teds, scds CODE: Full code Dispo: From home, likely to remain in the hospital x 1-2 days A total of 75 minutes were spent with greater than 50% of that time face to face with the patient, personally reviewing all current laboratories, imaging studies, past medication reconciliation, outpatient chart review, and discussion with specialists to collaborate care for the patient with attending. Please see attending documentation for corrections and/or additions. History of Present Illness Chief Complaint: Progressive weakness Primary Care Provider: Carlos Bhagat MD This is a 77-year-old female with PMHx of multiple sclerosis, HTN, B12 deficiency, diastolic dysfunction, trace mitral regurg, fatty liver, MDD who presents to the hospital with worsening weakness over the past 2 to 3 weeks. She had finished sessions of PT/OT approximately 3 weeks ago, because Medicare only pays for 17 sessions and she decided to save 6 for a later timeframe when she would need it. Shortly after that she started to have some physical decline and noticed a significant change since Thursday evening. Thursday night she developed a sore throat and some congestion which is now improved, but thought that this may have triggered an MS flare. 2 days ago, Thursday, she sustained a fall, no LOC or head trauma or hitting her head, EMS arrived to her house however she did not come to the ER at that point time. Today patient has struggled to participate in ADLs, and even notes that lifting a glass of water was difficult. She then felt that her legs gave out from underneath her while she was using her walker in her home, called EMS who then brought her to the hospital due to worsening weakness. She did not take any of her morning medications. Pt frequently forgets to take her Fosamax and so just tries to remember it once per week around Thursday. Denies any abdominal complaints, urinary complaints, no chest or breathing complaints. As an outpatient she follows with Dr. Madison Duran with neurology for her MS. She previously was on Rebiv injections every other day and stopped them last fall as she felt increased weakness even with the reduced dose of these. She sent her an email yesterday and it appears that a prednisone taper was prescribed to her today per outpatient epic review however she did not parts picker this prescription or start taking it yet. Floresita lives at home by herself, has a neighbor next-door who is very helpful, and her brother who is medical POA lives close as well. Allergies Allergy/AdvReac Type Severity Reaction Status Date / Time ampicillin Allergy Intermediate Hives Verified 02/06/23 15:59 ciprofloxacin [From Cipro] Allergy Intermediate Hives Verified 02/06/23 15:59 metronidazole [From Flagyl] Allergy Intermediate Rash Verified 02/06/23 15:59 Penicillins Allergy Intermediate Hives Verified 02/06/23 15:59 Sulfa (Sulfonamide Allergy Intermediate Hives Verified 02/06/23 15:59 Antibiotics) tetracycline Allergy Intermediate Hives Verified 02/06/23 15:59 Home Medications Medication Instructions Recorded Confirmed Type desvenlafaxine succinate 50 mg 50 mg PO QAM 06/10/19 02/06/23 History tablet,extended release 24 hr (Pristiq) cyanocobalamin (vitamin B-12) 1,000 mcg PO DAILY 06/15/19 02/06/23 History 1,000 mcg capsule alendronate 70 mg tablet 70 mg PO WK 06/20/21 02/06/23 History amlodipine 2.5 mg tablet 2.5 mg PO QAM 02/06/23 02/06/23 History Past Med/Surg History Medical History (Updated 02/06/23 @ 18:58 by Chidi Hernández DO) B12 deficiency Depression Generalized weakness HTN (hypertension) Multiple sclerosis Subdural hematoma "s/p surgical intervention " Surgical History (Updated 02/06/23 @ 18:24 by Era Dumont PA-C) H/O colonoscopy History of dental surgery S/P removal of ovarian cyst Family History (Updated 02/06/23 @ 18:24 by Era Dumont PA-C) Other Cancer Heart disease Neurological disorder Social History Smoking Status: Never smoker Tobacco Type: Cigarettes Hx Alcohol Use: Yes Alcohol type: wine Hx Substance Use: No Preferred Language: Thai Communication Ability: Effective Pullman Car Clerk Required: No Beliefs That Will Affect Care: None marital status: Single Current Living Situation: Alone current occupational status: retired Feels Safe at Home: Yes Assistive Devices: Cane and Glasses Review of Systems Review of Systems: Constitutional: No fever, sweats or chills, + progressive weakness Eyes: No diplopia, no worsening or blurred vision ENT: normal hearing, no trouble swallowing Respiratory: No cough, sputum, dyspnea at rest or on exertion Cardiovascular: No chest pain, tightness or palpitations Abdomen: No pain, nausea, vomiting, diarrhea or constipation Musculoskeletal: No joint pain, calf pain, swelling Neurologic: As per HPI, + increased progressive weakness, no numbness/tingling, + uses a walker due to balance problems Psychiatric: No anxiety or depression Skin: No rash or itch Physical Exam Physical Exam: General: awake, alert, no apparent distress Head: Normocephalic, atraumatic ENT: PERRL, EOMI, no pharyngeal exudate, mucous membranes moist Chest: Clear to auscultation, on room air, no adventitious breath sounds Cardiac: Regular rate and rhythm, no murmur, no JVD, normal peripheral pulses, good capillary refill Abdominal: NABS x 4 quadrants, soft, nondistended, nontender to palpation, no rebound or guarding Extremities: Normal inspection, no peripheral edema or erythema, calfs nontender to palpation Psych: Normal mood and affect Neuro: AAO x 3, strength intact bilaterally and rated 5/5 in upper extremities, Right leg with strength rated 4/5, difficulty lifting it up off the bed. She can life the left leg without difficulty. speech is clear, no peripheral sensory deficits Results & Data Results & Data Vital Signs (Past 12 Hours) Vital Signs Temp Pulse Pulse Resp BP BP Pulse Ox 02/06/23 16:20 103 H 02/06/23 16:15 99 H 22 147/81 H 97 02/06/23 14:45 37 C 106 H 21 172/97 H 96 O2 Del Method 02/06/23 16:20 02/06/23 16:15 Room Air 02/06/23 14:45 Room Air Laboratory Results 02/06/23 02/06/23 02/06/23 15:40 15:40 15:40 WBC 11.55 H RBC 3.52 L Hgb 12.8 Hct 38.1 MCV 108.2 H MCH 36.4 H MCHC 33.6 RDW Std Deviation 51.4 H RDW Coeff of Love 12.8 Plt Count 255 MPV 10.1 Immature Gran % (Auto) 0.4 Neut % (Auto) 66.8 Lymph % (Auto) 12.8 [place] % (Auto) 18.1 Eos % (Auto) 1.1 Baso % (Auto) 0.8 Neut # (Auto) 7.71 H Lymph # (Auto) 1.48 [place] # (Auto) 2.09 H Eos # (Auto) 0.13 Baso # (Auto) 0.09 Immature Gran # (Auto) 0.05 PT 11.2 INR 1.0 Sodium 135 L Potassium 4.1 Chloride 99 Carbon Dioxide 27 Anion Gap 9 BUN 18 Creatinine 0.75 Est Cr Clr Drug Dosing 57.4 Est GFR ( Amer) 89.7 Est GFR (Non-Af Amer) 77.4 BUN/Creatinine Ratio 24.0 H Glucose 104 H Calcium 9.8 Total Bilirubin 0.9 AST 43 H ALT 26 Alkaline Phosphatase 78 Total Protein 7.5 Albumin 4.4 Globulin 3.1 Albumin/Globulin Ratio 1.[address] 02/06/23 14:49 CT OF THE HEAD WITHOUT CONTRAST CLINICAL HISTORY: weak, fall COMPARISON STUDY: Head CT May 07, 2013. CT DOSE: 537.48 mGy.cm TECHNIQUE: Helical axial images of the head were obtained without IV contrast. Automated exposure control was utilized for the study. A dose lowering technique was utilized adhering to the principles of ALARA. FINDINGS: No acute intracranial hemorrhage, midline shift or mass effect is present. Prominence of the extra-axial spaces is unchanged. Mild white matter hypodensity suggests small vessel disease. The ventricular system is unremarkable. The basal cisterns are patent. No extra-axial collections are present. There are no findings to suggest left-sided juan holes are noted. Acute dural sinus thrombosis or acute territorial infarct. There is no acute calvarial fracture. IMPRESSION: 1. No acute intracranial findings. 2. No acute calvarial fracture. ACT 112: Negative or not required by law. Electronically signed by: Abdifatah Rod M.D. 02/06/2023 4:13 PM Code Status & VTE Plan Code Status Full code - discussed with the patient at bedside VTE Prophylaxis Plan VTE Prophylaxis will be ordered: Yes Supervising Physician Co-Signing Physician Notes Patient was seen and examined with Era CONNER at bedside. Chart reviewed. Case discussed with Era and agree with the documentation above with regards to HPI, Exam and A/P and edited wherever necessary.
[2023-02-06 18:05] LABS: Appearance Urine Cloudy (Clear); Bacteria Urine Automated 2+ (Negative); Bilirubin Urine Negative (Negative); Blood Urine Negative (Negative); Color Urine Yellow; Glucose Urine UA Negative (Negative); Ketones Urine Trace (Negative); Leukocyte Esterase Urine 3+ (Negative); Nitrite Urine Positive (Negative); Protein Urine Negative (Negative); Specific Gravity Urine 1.011 (1.000-1.030); Urobilinogen Urine Negative (Negative); WBC Urine Automated >30 /hpf (0-5); pH Urine 6.5 (4.5-7.5)
[2023-02-06] MEDS ORDERED: cefTRIAXone SODIUM 1,000 MG in DEXTROSE 5% AD-VAN 50 ML IV STA (18:41)
[2023-02-06 18:47] LABS: RBC Urine Automated 0-4 /hpf (0-4)
[2023-02-06 20:25] LABS: Adenovirus PCR Not Detected (NotDetected); Bordetella parapertussis PCR Not Detected (NotDetected); Bordetella pertussis PCR Not Detected (NotDetected); Chlamydia pneumoniae PCR Not Detected (NotDetected); Coronavirus 229E PCR Not Detected (NotDetected); Coronavirus CoV-2 (COVID19)PCR Not Detected (NotDetected); Coronavirus HKU1 PCR Not Detected (NotDetected); Coronavirus NL63 PCR Not Detected (NotDetected); Coronavirus OC43PCR Not Detected (NotDetected); Human Metapneumovirus PCR Not Detected (NotDetected); Influenza A PCR Not Detected (NotDetected); Influenza B PCR Not Detected (NotDetected); Mycoplasma pneumoniae PCR Not Detected (NotDetected); Parainfluenza Virus 1 PCR Not Detected (NotDetected); Parainfluenza Virus 2 PCR Not Detected (NotDetected); Parainfluenza Virus 3 PCR Not Detected (NotDetected); Parainfluenza Virus 4 PCR Not Detected (NotDetected); Respiratory Syncytial VirusPCR Not Detected (NotDetected); Rhinovirus/Enterovirus PCR Not Detected (NotDetected)
[2023-02-06] MEDS: amLODIPine BESYLATE 5 MG TAB PO SCH (22:18)
[2023-02-06] MEDS: CYANOCOBALAMIN (B-12) 500 MCG TABLET PO SCH (22:18)
--- NOTE | 2023-02-06 22:43 | Electrocardiogram Report ---
Test Reason : Blood Pressure : / mmHG Vent. Rate : 102 BPM Atrial Rate : 102 BPM P-R Int : 124 ms QRS Dur : 074 ms QT Int : 348 ms P-R-T Axes : 024 -12 011 degrees QTc Int : 453 ms Sinus tachycardia with occasional Premature ventricular complexes Otherwise normal ECG When compared with ECG of 06-NOV-2016 09:58, Premature ventricular complexes are now Present Nonspecific T wave abnormality, worse in Anterior leads Confirmed by Son Roland ([id number]) on 02/06/2023 10:43:20 PM Referred By: Confirmed By:Son Roland
[2023-02-07 07:03] LABS: Hematocrit (blood only) 37.4 % (37.0-47.0); Hemoglobin 13.1 g/dl (12.0-16.0); Mean Corpuscular Hemoglobin 36.8 pg (25.0-34.0); Mean Corpuscular Volume 105.1 fL (80.0-100.0); Mean Platelet Volume 10.3 fL (9.4-12.4); Platelet Count 275 K/uL (130-400); RDW Coefficient of Variation 12.2 % (11.5-14.5); RDW Standard Deviation 47.6 fL (36.4-46.3); Red Blood Count 3.56 M/uL (4.20-5.40); White Blood Count 10.06 K/ul (4.8-10.8)
[2023-02-07 07:32] LABS: BUN Creatinine Ratio 27.5 (10-20); Calcium 9.3 mg/dl (8.6-10.3); Creatinine Clr Calc Pharmacy 62.4 ml/min; Est GFR (Non-African American) 84.6 ml/min; Potassium 3.6 mmol/L (3.5-5.1)
[2023-02-07] MEDS: amLODIPine BESYLATE 5 MG TAB PO SCH (07:32)
[2023-02-07] MEDS: CYANOCOBALAMIN (B-12) 500 MCG TABLET PO SCH (07:33)
--- NOTE | 2023-02-07 13:45 | Neurology Consultation ---
Date of Consultation February 07, 2023 Assessment & Plan (1) Multiple sclerosis: Impression: The patient has a long history of multiple sclerosis. Disease modifying treatment was stopped last year because of her age and adverse reaction. She reports being weaker in her legs with frequent falls during last few days which is likely due to acute urinary tract infection. MS exacerbation is unlikely at her age group. Recommendations: Physical therapy with fall precautions. There is no indication for steroid treatment or restarting on disease modifying treatment. The patient will be followed by [facility] neurology as scheduled before. (2) Acute UTI: Impression: Urinalysis showed acute urinary tract infection. Treatment is started. The patient feels stronger today. Recommendations: Per hospitalist team. (3) Falls frequently: Impression: The patient has baseline lower extremity weakness with paresthesias from multiple sclerosis. However, she has been feeling weaker in lower extremities with recurrent falls. Apparently, urinary tract infection can cause similar symptoms and might worsen baseline MS symptoms. Recommendations: Physical therapy. Fall precautions. Follow-up at [facility] neurology, as scheduled before. We will sign off. Plan As seen above. Thank you for the consultation. History of Present Illness Reason for Consultation: Weakness of legs and ambulation difficulty Requesting Physician: Magdi Olvera MD Attending Physician: Magdi Olvera MD History of Present Illness The patient is a 77-year-old very pleasant female, with established diagnosis of multiple sclerosis, who presented emergency department because of worsening leg weakness, and frequent falls. She reports that she was diagnosed with multiple sclerosis when she was in 20s. Until last year, she was on Rebif as a disease modifying treatment, however, because of adverse reaction, as well as her age, disease modifying treatment was stopped last year. The patient has been followed by [facility] neurology regularly. On her baseline, she can ambulate independently in the house. She uses cane when she goes outside. She has baseline bilateral leg weakness, and paresthesias affecting bilateral lower extremities as well as left upper extremity. For last 3 days, her leg weakness has been worsening and her ambulation has been very challenging. She has fallen down few times recently. In emergency department, initial work-up was unremarkable and the patient received 500 mg of Solu-Medrol empirically, for possible MS exacerbation. However, following urinalysis was consistent with urinary tract infection and Solu-Medrol treatment was stopped and the patient was started on antibiotic treatment. Today, she feels stronger and able to ambulate independently in her room. She denies any new neurological symptoms otherwise. I have reviewed the patient's chart and discussed the case with the patient and answered her questions in detail. Allergies Allergy/AdvReac Type Severity Reaction Status Date / Time ampicillin Allergy Intermediate Hives Verified 02/06/23 15:59 ciprofloxacin [From Cipro] Allergy Intermediate Hives Verified 02/06/23 15:59 metronidazole [From Flagyl] Allergy Intermediate Rash Verified 02/06/23 15:59 Penicillins Allergy Intermediate Hives Verified 02/06/23 15:59 Sulfa (Sulfonamide Allergy Intermediate Hives Verified 02/06/23 15:59 Antibiotics) tetracycline Allergy Intermediate Hives Verified 02/06/23 15:59 Home Medications Medication Instructions Recorded Confirmed Type desvenlafaxine succinate 50 mg 50 mg PO QAM 06/10/19 02/06/23 History tablet,extended release 24 hr (Pristiq) cyanocobalamin (vitamin B-12) 1,000 mcg PO DAILY 06/15/19 02/06/23 History 1,000 mcg capsule alendronate 70 mg tablet 70 mg PO WK 06/20/21 02/06/23 History amlodipine 2.5 mg tablet 2.5 mg PO QAM 02/06/23 02/06/23 History Patient History Medical History B12 deficiency Depression Generalized weakness HTN (hypertension) Multiple sclerosis Subdural hematoma "s/p surgical intervention " Surgical History H/O colonoscopy History of dental surgery S/P removal of ovarian cyst Family History Other Cancer Heart disease Neurological disorder Social History Smoking Status: Never smoker Tobacco Type: Cigarettes Hx Alcohol Use: No Hx Substance Use: No Preferred Language: Indonesian Communication Ability: Effective Server Security Administrator Required: No Beliefs That Will Affect Care: None marital status: Single Current Living Situation: Alone current occupational status: retired Other Information That Helps Us Care for You: No Feels Safe at Home: Yes Safety Concerns: Feels Safe At This Time Assistive Devices: Walker Review of Systems Review of Systems: All systems reviewed & are unremarkable except as noted in HPI & below Physical Exam Physical Exam: General Examination: Constitutional: Well developed person in no acute distress. HENT: Normal exam with inspection. CV: Hearth rhythm is regular. Neck: Supple, no carotid bruits. Lungs: Non-labored and comfortable breathing. Abdomen: Soft, non-tender, non-distended. Skin: No rash or ecchymosis. Extremities: No edema or cyanosis NEUROLOGICAL EXAMINATION: Mental Status: Alert and oriented to place, person and time. Cranial Nerves: II-XII are intact. No nystagmus. Funduscopy: Normal looking optic discs. Motor: 5/5 in upper extremities, 4- out of 5 in the right lower extremity proximally and 4+ out of 5 in the left lower extremity proximally. Bilateral ankle dorsiflexors are 5- out of 5.. Tone: Normal without spasticity or rigidity. Sensory: Bilateral lower extremities and left upper extremity with chronic paresthesias. There is no new sensory symptoms. Coordination: No dysmetria with FTN testing. Speech: Fluent. Comprehension is intact. Gait: The patient currently can ambulate with a cane independently. She reports feeling stronger today. Musculoskeletal: Normal muscle bulk, no atrophy. DTRs: 2+ in upper extremities and knees, and 1+ in ankles. Plantar reflexes are bilaterally downgoing. Results & Data Vital Signs (Past 12 Hours) Vital Signs Temp Pulse Resp BP Pulse Ox O2 Del Method 02/07/23 07:15 Room Air 02/07/23 07:40 36.7 C 88 19 143/88 H 91 Room Air Laboratory Results Laboratory Results - last 24 hr 02/06/23 02/06/23 02/06/23 15:40 15:40 15:40 WBC 11.55 H RBC 3.52 L Hgb 12.8 Hct 38.1 MCV 108.2 H MCH 36.4 H MCHC 33.6 RDW Std Deviation 51.4 H RDW Coeff of Love 12.8 Plt Count 255 MPV 10.1 Immature Gran % (Auto) 0.4 Neut % (Auto) 66.8 Lymph % (Auto) 12.8 [place] % (Auto) 18.1 Eos % (Auto) 1.1 Baso % (Auto) 0.8 Neut # (Auto) 7.71 H Lymph # (Auto) 1.48 [place] # (Auto) 2.09 H Eos # (Auto) 0.13 Baso # (Auto) 0.09 Immature Gran # (Auto) 0.05 PT 11.2 INR 1.0 Sodium 135 L Potassium 4.1 Chloride 99 Carbon Dioxide 27 Anion Gap 9 BUN 18 Creatinine 0.75 Est Cr Clr Drug Dosing 57.4 Est GFR ( Amer) 89.7 Est GFR (Non-Af Amer) 77.4 BUN/Creatinine Ratio 24.0 H Glucose 104 H Lactate Calcium 9.8 Total Bilirubin 0.9 AST 43 H ALT 26 Alkaline Phosphatase 78 Total Protein 7.5 Albumin 4.4 Globulin 3.1 Albumin/Globulin Ratio 1.4 Vitamin B12 Procalcitonin Urine Color Urine Appearance Urine pH Ur Specific [place] Urine Protein Urine Glucose (UA) Urine Ketones Urine Blood Urine Nitrite Urine Bilirubin Urine Urobilinogen Ur Leukocyte Esterase Urine WBC (Auto) Urine RBC (Auto) U Hyaline Cast (Auto) U Epithel Cells (Auto) Urine Bacteria (Auto) Urine Yeast Adenovirus (PCR) B. pertussis DNA (PCR) B.parapertussis DNA PCR C. pneumoniae DNA (PCR) Coronavirus OC43 (PCR) Coronavirus HKU1 (PCR) Coronavirus 229E (PCR) SARS-CoV-2 (PCR) Coronavirus NL63 (PCR) Human Metapneumovir PCR Influenza Type A (PCR) Influenza Type B (PCR) M. pneumoniae (PCR) Parainfluenza 1 (PCR) Parainfluenza 2 (PCR) Parainfluenza 3 (PCR) Parainfluenza 4 (PCR) RSV (PCR) Entero/Rhino (PCR) SARS-CoV-2, RNA, NAAT 02/06/23 02/06/23 02/06/23 15:41 15:41 17:40 WBC RBC Hgb Hct MCV MCH MCHC RDW Std Deviation RDW Coeff of Love Plt Count MPV Immature Gran % (Auto) Neut % (Auto) Lymph % (Auto) [place] % (Auto) Eos % (Auto) Baso % (Auto) Neut # (Auto) Lymph # (Auto) [place] # (Auto) Eos # (Auto) Baso # (Auto) Immature Gran # (Auto) PT INR Sodium Potassium Chloride Carbon Dioxide Anion Gap BUN Creatinine Est Cr Clr Drug Dosing Est GFR ( Amer) Est GFR (Non-Af Amer) BUN/Creatinine Ratio Glucose Lactate Calcium Total Bilirubin AST ALT Alkaline Phosphatase Total Protein Albumin Globulin Albumin/Globulin Ratio Vitamin B12 > 1500 H Procalcitonin 0.18 Urine Color Yellow Urine Appearance Cloudy A Urine pH 6.5 Ur Specific [place] 1.011 Urine Protein Negative Urine Glucose (UA) Negative Urine Ketones Trace H Urine Blood Negative Urine Nitrite Positive A Urine Bilirubin Negative Urine Urobilinogen Negative Ur Leukocyte Esterase 3+ H Urine WBC (Auto) >30 H Urine RBC (Auto) 0-4 U Hyaline Cast (Auto) 5-10 H U Epithel Cells (Auto) 5-10 H Urine Bacteria (Auto) 2+ H Urine Yeast Not Reportable Adenovirus (PCR) B. pertussis DNA (PCR) B.parapertussis DNA PCR C. pneumoniae DNA (PCR) Coronavirus OC43 (PCR) Coronavirus HKU1 (PCR) Coronavirus 229E (PCR) SARS-CoV-2 (PCR) Coronavirus NL63 (PCR) Human Metapneumovir PCR Influenza Type A (PCR) Influenza Type B (PCR) M. pneumoniae (PCR) Parainfluenza 1 (PCR) Parainfluenza 2 (PCR) Parainfluenza 3 (PCR) Parainfluenza 4 (PCR) RSV (PCR) Entero/Rhino (PCR) SARS-CoV-2, RNA, NAAT 02/06/23 02/06/23 02/06/23 17:45 18:17 19:00 WBC RBC Hgb Hct MCV MCH MCHC RDW Std Deviation RDW Coeff of Love Plt Count MPV Immature Gran % (Auto) Neut % (Auto) Lymph % (Auto) [place] % (Auto) Eos % (Auto) Baso % (Auto) Neut # (Auto) Lymph # (Auto) [place] # (Auto) Eos # (Auto) Baso # (Auto) Immature Gran # (Auto) PT INR Sodium Potassium Chloride Carbon Dioxide Anion Gap BUN Creatinine Est Cr Clr Drug Dosing Est GFR ( Amer) Est GFR (Non-Af Amer) BUN/Creatinine Ratio Glucose Lactate 0.8 Calcium Total Bilirubin AST ALT Alkaline Phosphatase Total Protein Albumin Globulin Albumin/Globulin Ratio Vitamin B12 Procalcitonin Urine Color Urine Appearance Urine pH Ur Specific [place] Urine Protein Urine Glucose (UA) Urine Ketones Urine Blood Urine Nitrite Urine Bilirubin Urine Urobilinogen Ur Leukocyte Esterase Urine WBC (Auto) Urine RBC (Auto) U Hyaline Cast (Auto) U Epithel Cells (Auto) Urine Bacteria (Auto) Urine Yeast Adenovirus (PCR) Not Detected B. pertussis DNA (PCR) Not Detected B.parapertussis DNA PCR Not Detected C. pneumoniae DNA (PCR) Not Detected Coronavirus OC43 (PCR) Not Detected Coronavirus HKU1 (PCR) Not Detected Coronavirus 229E (PCR) Not Detected SARS-CoV-2 (PCR) Not Detected Coronavirus NL63 (PCR) Not Detected Human Metapneumovir PCR Not Detected Influenza Type A (PCR) Not Detected Influenza Type B (PCR) Not Detected M. pneumoniae (PCR) Not Detected Parainfluenza 1 (PCR) Not Detected Parainfluenza 2 (PCR) Not Detected Parainfluenza 3 (PCR) Not Detected Parainfluenza 4 (PCR) Not Detected RSV (PCR) Not Detected Entero/Rhino (PCR) Not Detected SARS-CoV-2, RNA, NAAT NEGATIVE 02/07/23 02/07/23 06:46 06:46 WBC 10.06 RBC 3.56 L Hgb 13.1 Hct 37.4 MCV 105.1 H MCH 36.8 H MCHC 35.0 RDW Std Deviation 47.6 H RDW Coeff of Love 12.2 Plt Count 275 MPV 10.3 Immature Gran % (Auto) Neut % (Auto) Lymph % (Auto) [place] % (Auto) Eos % (Auto) Baso % (Auto) Neut # (Auto) Lymph # (Auto) [place] # (Auto) Eos # (Auto) Baso # (Auto) Immature Gran # (Auto) PT INR Sodium 137 Potassium 3.6 Chloride 99 Carbon Dioxide 25 Anion Gap 13 H BUN 19 Creatinine 0.69 Est Cr Clr Drug Dosing 62.4 Est GFR ( Amer) 98.0 Est GFR (Non-Af Amer) 84.6 BUN/Creatinine Ratio 27.5 H Glucose 162 H Lactate Calcium 9.3 Total Bilirubin AST ALT Alkaline Phosphatase Total Protein Albumin Globulin Albumin/Globulin Ratio Vitamin B12 Procalcitonin Urine Color Urine Appearance Urine pH Ur Specific [place] Urine Protein Urine Glucose (UA) Urine Ketones Urine Blood Urine Nitrite Urine Bilirubin Urine Urobilinogen Ur Leukocyte Esterase Urine WBC (Auto) Urine RBC (Auto) U Hyaline Cast (Auto) U Epithel Cells (Auto) Urine Bacteria (Auto) Urine Yeast Adenovirus (PCR) B. pertussis DNA (PCR) B.parapertussis DNA PCR C. pneumoniae DNA (PCR) Coronavirus OC43 (PCR) Coronavirus HKU1 (PCR) Coronavirus 229E (PCR) SARS-CoV-2 (PCR) Coronavirus NL63 (PCR) Human Metapneumovir PCR Influenza Type A (PCR) Influenza Type B (PCR) M. pneumoniae (PCR) Parainfluenza 1 (PCR) Parainfluenza 2 (PCR) Parainfluenza 3 (PCR) Parainfluenza 4 (PCR) RSV (PCR) Entero/Rhino (PCR) SARS-CoV-2, RNA, NAAT Diagnostic Findings Head CT 02/06/23 14:49 CT OF THE HEAD WITHOUT CONTRAST CLINICAL HISTORY: weak, fall COMPARISON STUDY: Head CT May 07, 2013. CT DOSE: 537.48 mGy.cm TECHNIQUE: Helical axial images of the head were obtained without IV contrast. Automated exposure control was utilized for the study. A dose lowering technique was utilized adhering to the principles of ALARA. FINDINGS: No acute intracranial hemorrhage, midline shift or mass effect is present. Prominence of the extra-axial spaces is unchanged. Mild white matter hypodensity suggests small vessel disease. The ventricular system is unremarkable. The basal cisterns are patent. No extra-axial collections are present. There are no findings to suggest left-sided juan holes are noted. Acute dural sinus thrombosis or acute territorial infarct. There is no acute calvarial fracture. IMPRESSION: 1. No acute intracranial findings. 2. No acute calvarial fracture. ACT 112: Negative or not required by law. Electronically signed by: Abdifatah Rod M.D. 02/06/2023 4:13 PM
--- NOTE | 2023-02-07 14:06 | Hospitalist Progress Note ---
Date of Service February 07, 2023 Assessment & Plan (1) Acute UTI: Plan: Urine culture showing gram-negative bacilli, blood cultures pending. Continue Rocephin pending final culture results. (2) Generalized weakness: Plan: Due to UTI. Unlikely MS flare. Seen by neurology and recommendations noted. No indication for steroids. PT/OT evaluation (3) Multiple sclerosis: Plan: Disease modifying treatment was stopped last year because of her age and adverse reaction. (4) HTN (hypertension): Plan: Continue home amlodipine (5) Depression: Plan: Continue Pristiq (6) Macrocytosis without anemia: Plan: B12 normal. Folate and TSH pending. Recommend follow-up with PCP for further evaluation, possible hematology referral to complete work-up Admission and Anticipated Discharge Date Admission Date: February 06, 2023 Subjective Patient was seen and examined at bedside. She states he is already feeling stronger. Denies any new issues. No fever, chills, chest pain, shortness of breath, nausea or vomiting Review of Systems Review of Systems: All systems reviewed & are unremarkable except as noted in Subjective Physical Exam Physical Exam: General: Sitting comfortably in bed eating breakfast, not in distress, on room air HEENT: EOMI, ELADIA, MMM Chest: Clear breath sounds bilaterally, no wheezes or crackles CVS: Regular rate and rhythm, normal heart sounds, no murmur Abdomen: Soft, non tender, not distended, normal bowel sounds Neuro: Awake, alert, oriented, conversing well, non focal Extremities: No cyanosis, clubbing or edema Results & Data Results & Data Vital Signs (Past 12 Hours) Vital Signs Temp Pulse Resp BP Pulse Ox O2 Del Method 02/07/23 07:15 Room Air 02/07/23 07:40 36.7 C 88 19 143/88 H 91 Room Air Laboratory Results Short CBC 02/06/23 02/07/23 Range/Units 15:40 06:46 WBC 11.55 H 10.06 (4.8-10.8) K/ul Hgb 12.8 13.1 (12.0-16.0) g/dl Hct 38.1 37.4 (37.0-47.0) % Plt Count 255 275 (130-400) K/uL BMP 02/06/23 02/07/23 15:40 06:46 Sodium 135 L 137 Potassium 4.1 3.6 Chloride 99 99 Carbon Dioxide 27 25 BUN 18 19 Creatinine 0.75 0.69 Glucose 104 H 162 H Calcium 9.8 9.3 Liver Function 02/06/23 Range/Units 15:40 Total Bilirubin 0.9 (0.2-1.0) mg/dl AST 43 H (13-39) U/L ALT 26 (7-52) U/L Alkaline Phosphatase 78 (34-104) U/L Albumin 4.4 (3.4-5.0) gm/dl Urine 02/06/23 Range/Units 17:40 Urine Color Yellow Urine Appearance Cloudy A (Clear) Urine pH 6.5 (4.5-7.5) Ur Specific [place] 1.011 (1.000-1.030) Urine Protein Negative (Negative) Urine Glucose (UA) Negative (Negative) Medications Administered Current Inpatient Medications Alendronate Sodium (Alendronate Sodium 70 Mg Tab) 70 mg PO We@0900 [facility] Stop: 03/13/23 08:59 Amlodipine Besylate (Amlodipine Besylate 5 Mg Tab) 2.5 mg PO QAM [facility] Stop: 03/08/23 20:24 Last Admin: 02/07/23 07:32 Dose: 2.5 mg Cyanocobalamin (Cyanocobalamin (B-12) 500 Mcg Tablet) 1,000 mcg PO DAILY [facility] Stop: 03/08/23 20:24 Last Admin: 02/07/23 07:33 Dose: 1,000 mcg Ceftriaxone Sodium 2,000 mg/ (Dextrose) 70 mls @ 100 mls/hr IV Q24H [facility]; Protocol Stop: 02/12/23 18:59 Miscellaneous (Desvenlafaxine: Order Awaiting Action) 1 each N/A QS [facility] Stop: 03/09/23 00:00 Last Admin: 02/07/23 07:31 Dose: Not Given
[2023-02-07] MEDS: cefTRIAXone SODIUM 2,000 MG in DEXTROSE 5% 50 ML IV SCH (18:08)
[2023-02-07] MEDS: ENOXAPARIN INJ 40 MG/0.4 ML SYR SQ SCH (21:00)
[2023-02-08] MEDS: MELATONIN 3 MG TAB PO PRN (00:41)
[2023-02-08] MEDS: amLODIPine BESYLATE 5 MG TAB PO SCH (08:04)
[2023-02-08] MEDS: CYANOCOBALAMIN (B-12) 500 MCG TABLET PO SCH (08:05)
[2023-02-08] MEDS: DESVENLAFAXINE SUCCINATE ER TABLET PO SCH (08:05)
[2023-02-08] MEDS: FOLIC ACID 1 MG in SYRINGE 9.8 ML IV SCH (08:36)
--- NOTE | 2023-02-08 11:13 | Hospitalist Progress Note ---
Date of Service February 08, 2023 Assessment & Plan (1) Acute UTI: Plan: Urine culture showing Klebsiella, pansensitive except for macrobid, blood cultures negative. Continue Rocephin in-house D2/5, changed to cefdinir at discharge. (2) Generalized weakness: Plan: Due to UTI. Unlikely MS flare. Seen by neurology and recommendations noted. No indication for steroids. PT recommended rehab (3) Multiple sclerosis: Plan: Disease modifying treatment was stopped last year because of her age and adverse reaction. (4) HTN (hypertension): Plan: Continue home amlodipine (5) Depression: Plan: Continue Pristiq (6) Macrocytosis without anemia: Plan: Due to folate deficiency. Folate low, B12 normal, TSH normal. Started on fo late supplementation, continue at discharge. If macrocytosis persists even after folate repletion, will need follow-up with PCP for further evaluation, possible hematology referral to complete work-up Plan DVT prophylaxis-subcu Lovenox Disposition-PT recommends rehab. CM following. Patient is medically stable. Admission and Anticipated Discharge Date Admission Date: February 06, 2023 Subjective Patient was seen and examined at bedside. She still feels weak and does not think she will be able to go home alone as her current condition. No fever, chills, chest pain or shortness of breath nausea or vomiting Review of Systems Review of Systems: All systems reviewed & are unremarkable except as noted in Subjective Physical Exam Physical Exam: General: Sitting comfortably in bed eating breakfast, not in distress, on room air HEENT: EOMI, ELADIA, MMM Chest: Clear breath sounds bilaterally, no wheezes or crackles CVS: Regular rate and rhythm, normal heart sounds, no murmur Abdomen: Soft, non tender, not distended, normal bowel sounds Neuro: Awake, alert, oriented, conversing well, non focal Extremities: No cyanosis, clubbing or edema Results & Data Results & Data Vital Signs (Past 12 Hours) Vital Signs Temp Pulse Resp BP Pulse Ox O2 Del Method 02/08/23 07:15 Room Air 02/08/23 07:41 36.8 C 84 16 120/82 93 Room Air Medications Administered Current Inpatient Medications Alendronate Sodium (Alendronate Sodium 70 Mg Tab) 70 mg PO We@0900 [facility] Stop: 03/13/23 08:59 Amlodipine Besylate (Amlodipine Besylate 5 Mg Tab) 2.5 mg PO QAM [facility] Stop: 03/08/23 20:24 Last Admin: 02/08/23 08:04 Dose: 2.5 mg Cyanocobalamin (Cyanocobalamin (B-12) 500 Mcg Tablet) 1,000 mcg PO DAILY [facility] Stop: 03/08/23 20:24 Last Admin: 02/08/23 08:05 Dose: 1,000 mcg Desvenlafaxine Succinate (Desvenlafaxine Succinate Er Tablet) [facility] [place] [facility]: 03/10/23 08:59 Last Admin: 02/08/23 08:05 Dose: 1 tab Enoxaparin Sodium (Enoxaparin Inj 40 Mg/0.4 Ml Syr) 40 mg SQ HS [facility] Stop: 03/09/23 20:59 Last Admin: 02/07/23 21:00 Dose: 40 mg Ceftriaxone Sodium 2,000 mg/ (Dextrose) 70 mls @ 100 mls/hr IV Q24H [facility]; Protocol Stop: 02/12/23 18:59 Last Infusion: 02/07/23 19:40 Dose: Infused Folic Acid 1 mg/ Syringe 10 mls @ 5 mls/min IV QAM [facility] Stop: 03/10/23 08:59 Last Admin: 02/08/23 08:36 Dose: 5 mls/min Melatonin (Melatonin 3 Mg Tab) 3 mg PO HS PRN PRN Reason: Sleep Stop: 03/09/23 19:58 Last Admin: 02/08/23 00:41 Dose: 3 mg
[2023-02-08] MEDS ORDERED: COUGH DROP (SUGAR FREE) LOZ 24 LOZ/1 BOX BUCCAL PRN (11:31)
[2023-02-08] MEDS: cefTRIAXone SODIUM 2,000 MG in DEXTROSE 5% 50 ML IV SCH (18:10)
[2023-02-08] MEDS: ENOXAPARIN INJ 40 MG/0.4 ML SYR SQ SCH (20:40)
[2023-02-09] MEDS: MELATONIN 3 MG TAB PO PRN (00:16)
[2023-02-09] MEDS: amLODIPine BESYLATE 5 MG TAB PO SCH (07:53)
[2023-02-09] MEDS: DESVENLAFAXINE SUCCINATE ER TABLET PO SCH (07:54)
[2023-02-09] MEDS: CYANOCOBALAMIN (B-12) 500 MCG TABLET PO SCH (07:54)
[2023-02-09] MEDS: FOLIC ACID 1 MG in SYRINGE 9.8 ML IV SCH (07:55)
[2023-02-09] MEDS ORDERED: CEFDINIR 300 MG CAP PO SCH (13:00)
--- NOTE | 2023-02-09 13:46 | Hospitalist Progress Note ---
Date of Service February 09, 2023 Assessment & Plan (1) Acute UTI: Plan: Urine culture showing Klebsiella, pansensitive except for macrobid, blood cultures negative. Continue Rocephin in-house D2/5, changed to cefdinir at discharge. Will start oral cefdinir and continue for 5 more days (2) Generalized weakness: Plan: Due to UTI. Unlikely MS flare. Seen by neurology and recommendations noted. No indication for steroids. PT recommended [facility] (3) Multiple sclerosis: Plan: Disease modifying treatment was stopped last year because of her age and adverse reaction. Appreciate neurology input and recommendation She will be advised to keep her appointment with outpatient neurologist (4) HTN (hypertension): Plan: Continue home amlodipine (5) Depression: Plan: Continue Pristiq (6) Macrocytosis without anemia: Plan: Due to folate deficiency. Folate low, B12 normal, TSH normal. Started on folate supplementation, continue at discharge. If macrocytosis persists even after folate repletion, will need follow-up with PCP for further evaluation, possible hematology referral to complete work-up Plan DVT prophylaxis-subcu Lovenox Disposition-PT recommends rehab. CM following. Patient is medically stable. Admission and Anticipated Discharge Date Admission Date: February 06, 2023 Subjective 02/09/2023 The patient was seen and examined in medical floor She has been stable and denies any symptoms [facility] Review of Systems Review of Systems: All systems reviewed and are unremarkable except as noted below Physical Exam Physical Exam: Lying in bed comfortably Constitutional: average body habitus; not ill appearing Eyes: PERRL, conjunctivae normal, anicteric sclerae ENMT: external ear and nose normal, oropharynx normal Neck: trachea midline, no thyromegaly Respiratory: no respiratory distress Auscultation: lungs clear to auscultation bilaterally Cardiovascular: Rate/Rhythm: regular rate and regular rhythm; not tachycardic Heart Sounds: normal S1 and normal S2; no murmur Extremities: no edema Gastrointestinal (Abdomen): Inspection/Auscultation: normal bowel sounds; abdomen not distended Percussion/Palpation: abdomen soft; abdomen nontender Musculoskeletal: No acute arthritis involving any joint Neurologic: Alert, awake and oriented x3. No focal sensory or no motor deficit appreciated Psychiatric: A+Ox3, euthymic affect Lymphatic: no cervical or axillary lymphadenopathy Results & Data Results & Data Vital Signs (Past 12 Hours) Vital Signs Temp Pulse Resp BP Pulse Ox O2 Del Method 02/09/23 07:15 Room Air 02/09/23 07:49 36.7 C 84 16 122/78 94 Room Air Medications Administered Current Inpatient Medications Alendronate Sodium (Alendronate Sodium 70 Mg Tab) 70 mg PO We@0900 [facility] Stop: 03/13/23 08:59 Amlodipine Besylate (Amlodipine Besylate 5 Mg Tab) 2.5 mg PO QAM [facility] Stop: 03/08/23 20:24 Last Admin: 02/09/23 07:53 Dose: 2.5 mg Cefdinir (Cefdinir 300 Mg Cap) 300 mg PO BID [facility] Stop: 02/19/23 12:59 Last Admin: 02/09/23 13:26 Dose: 300 mg Cyanocobalamin (Cyanocobalamin (B-12) 500 Mcg Tablet) 1,000 mcg PO DAILY [facility] Stop: 03/08/23 20:24 Last Admin: 02/09/23 07:54 Dose: 1,000 mcg Desvenlafaxine Succinate (Desvenlafaxine Succinate Er Tablet) 1 tab PO QAM [facility] Stop: 03/10/23 08:59 Last Admin: 02/09/23 07:54 Dose: 1 tab Enoxaparin Sodium (Enoxaparin Inj 40 Mg/0.4 Ml Syr) 40 mg SQ HS [facility] Stop: 03/09/23 20:59 Last Admin: 02/08/23 20:40 Dose: 40 mg Folic Acid 1 mg/ Syringe 10 mls @ 5 mls/min IV QAM [facility] Stop: 03/10/23 08:59 Last Admin: 02/09/23 07:55 Dose: 5 mls/min Melatonin (Melatonin 3 Mg Tab) 3 mg PO HS PRN PRN Reason: Sleep Stop: 03/09/23 19:58 Last Admin: 02/09/23 00:16 Dose: 3 mg Menthol (Cough Drop (Sugar Free) Alexa 24 Alexa/1 Box) 1 alexa BUCCAL PRN PRN PRN Reason: Sore Throat Stop: 03/10/23 11:30 Last Admin: 02/08/23 11:47 Dose: 1 alexa
--- NOTE | 2023-02-10 08:09 | Discharge Summary ---
Date of Service February 09, 2023 Admission HPI Per Admitting Provider This is a 77-year-old female with PMHx of multiple sclerosis, HTN, B12 deficiency, diastolic dysfunction, trace mitral regurg, fatty liver, MDD who presents to the hospital with worsening weakness over the past 2 to 3 weeks. She had finished sessions of PT/OT approximately 3 weeks ago, because Medicare only pays for 17 sessions and she decided to save 6 for a later timeframe when she would need it. Shortly after that she started to have some physical decline and noticed a significant change since Thursday evening. Thursday night she developed a sore throat and some congestion which is now improved, but thought that this may have triggered an MS flare. 2 days ago, Thursday, she sustained a fall, no LOC or head trauma or hitting her head, EMS arrived to her house however she did not come to the ER at that point time. Today patient has struggled to participate in ADLs, and even notes that lifting a glass of water was difficult. She then felt that her legs gave out from underneath her while she was using her walker in her home, called EMS who then brought her to the hospital due to worsening weakness. She did not take any of her morning medications. Pt frequently forgets to take her Fosamax and so just tries to remember it once per week around Thursday. Denies any abdominal complaints, urinary complaints, no chest or breathing complaints. As an outpatient she follows with Dr. Madison Duran with neurology for her MS. She previously was on Rebiv injections every other day and stopped them last fall as she felt increased weakness even with the reduced dose of these. She sent her an email yesterday and it appears that a prednisone taper was prescribed to her today per outpatient epic review however she did not picker / packer this prescription or start taking it yet. Floresita lives at home by herself, has a neighbor next-door who is very helpful, and her brother who is medical POA lives close as well. Admission Exam Per Admitting Provider Physical Exam: General: awake, alert, no apparent distress Head: Normocephalic, atraumatic ENT: PERRL, EOMI, no pharyngeal exudate, mucous membranes moist Chest: Clear to auscultation, on room air, no adventitious breath sounds Cardiac: Regular rate and rhythm, no murmur, no JVD, normal peripheral pulses, good capillary refill Abdominal: NABS x 4 quadrants, soft, nondistended, nontender to palpation, no rebound or guarding Extremities: Normal inspection, no peripheral edema or erythema, calfs nontender to palpation Psych: Normal mood and affect Neuro: AAO x 3, strength intact bilaterally and rated 5/5 in upper extremities, Right leg with strength rated 4/5, difficulty lifting it up off the bed. She can life the left leg without difficulty. speech is clear, no peripheral sensory deficits Principal Diagnosis Acute UTI, generalized weakness, multiple sclerosis, hypertension Discharge Exam Lying in bed comfortably Constitutional average body habitus; not ill appearing Eyes PERRL, conjunctivae normal, anicteric sclerae ENMT external ear and nose normal, oropharynx normal Neck trachea midline, no thyromegaly Respiratory no respiratory distress Auscultation: lungs clear to auscultation bilaterally Cardiovascular Rate/Rhythm: regular rate and regular rhythm; not tachycardic Heart Sounds: normal S1 and normal S2; no murmur Extremities: no edema Gastrointestinal (Abdomen) Inspection/Auscultation: normal bowel sounds; abdomen not distended Percussion/Palpation: abdomen soft; abdomen nontender Psychiatric A+Ox3, euthymic affect Lymphatic no cervical or axillary lymphadenopathy Discharge Data Allergies Allergy/AdvReac Type Severity Reaction Status Date / Time ampicillin Allergy Intermediate Hives Verified 02/06/23 15:59 ciprofloxacin [From Cipro] Allergy Intermediate Hives Verified 02/06/23 15:59 metronidazole [From Flagyl] Allergy Intermediate Rash Verified 02/06/23 15:59 Penicillins Allergy Intermediate Hives Verified 02/06/23 15:59 Sulfa (Sulfonamide Allergy Intermediate Hives Verified 02/06/23 15:59 Antibiotics) tetracycline Allergy Intermediate Hives Verified 02/06/23 15:59 Consultations 02/06/23 17:33 ED Decision to Admit Stat 02/06/23 17:36 Consult Neurology Routine Ordered Studies 02/06/23 14:49 CT head/brain wo con Stat Hospital Course (1) Acute UTI: Urine culture showing Klebsiella, pansensitive except for macrobid, blood cultures negative. Continue Rocephin in-house D2/5, changed to cefdinir at discharge. Will start oral cefdinir and continue for 5 more days (2) Generalized weakness: Due to UTI. Unlikely MS flare. Seen by neurology and recommendations noted. No indication for steroids. PT recommended rehab She has been accepted to [facility] and will be discharged this afternoon (3) Multiple sclerosis: Disease modifying treatment was stopped last year because of her age and adverse reaction. Appreciate neurology input and recommendation She will be advised to keep her appointment with outpatient neurologist (4) HTN (hypertension): Continue home amlodipine (5) Depression: Continue Pristiq (6) Macrocytosis without anemia: Due to folate deficiency. Folate low, B12 normal, TSH normal. Started on folate supplementation, continue at discharge. If macrocytosis persists even after folate repletion, will need follow-up with PCP for further evaluation, possible hematology referral to complete work-up Plan DVT prophylaxis-subcu Lovenox Disposition-PT recommends rehab. CM following. Patient is medically stable. Total Time Total Time Spent Total Time Spent (In Minutes): 35 minutes Discharge Plan Discharge Items Patient Disposition: Transfer Inpatient Rehab Fac Reason For Visit: WEAKNESS Discharge Diagnosis: Acute UTI, generalized weakness, multiple sclerosis, hypertension Condition on Discharge: Good Activity: As commented below Activity Comment: Continue physical therapy Non-emergency contact: Primary Care Provider Call non-emergency contact if: you have any medication questions and your symptoms worsen Follow-up/Referrals: Carlos Bhagat MD [Primary Care Provider] - (Please make an appointment with your primary care provider within 7 days following discharge from the facility) Diet: Heart Healthy Addtl Attending Provider Instructions: Please take precautions to avoid falls Please finish the course of antibiotic Drink plenty of fluid Take your medications as advised Pending Studies at Discharge: No Stand-Alone Forms: My [facility] Skilled Items Patient informed of condition?: Yes DNR: No Discharge Level of Care: Acute rehab Communicable Disease: No Discharge Prognosis: Stable Lines: None Urinary Catheter: No Medications and DC Order Prescriptions: New cefdinir 300 mg Capsule 300 mg PO BID 7 Days Qty: 14 0RF Continued desvenlafaxine succinate [Pristiq] 50 mg tablet extended release 24 hr 50 mg PO QAM cyanocobalamin (vitamin B-12) 1,000 mcg Capsule 1,000 mcg PO DAILY alendronate 70 mg tablet 70 mg PO WK Rx Instructions: TAKES ON THURSDAY, PER PT "TAKE WHEN I REMEMBER". amlodipine 2.5 mg tablet 2.5 mg PO QAM Discharge Orders: Discharge Order (Routine); Ordered 02/09/23 Ordered By: Eliezer Escamilla Admission Data Admit Date/Time: 02/06/23 17:36 Attending Provider: Eliezer Escamilla Admit Provider: Magdi Olvera Primary Care Provider: Carlos Bhagat Other Providers: Alex Woodward ; Magdi Olvera ; [facility] Other Interventions: Discharge Summary Assessment (RN) Last Done: 02/09/23 16:27
[2023-02-11] MEDS ORDERED: ALENDRONATE SODIUM 70 MG TAB PO SCH (09:00)
== END 2023-02-09 17:36 | DRG 690 ==
LOC: ED 14:37 → 3N 17:36 → SUATTDRO 17:36 → 3N 20:29

== ENCOUNTER 2023-12-14 12:58 | Inpatient (IN) ==
--- NOTE | 2023-12-14 13:32 | Emergency Department Note ---
History of Present Illness General Chief complaint: Fall Stated complaint: fall Time Seen by Provider: 12/14/23 13:07 History of Present Illness Maximum Pain Intensity: 4 78-year-old female who presents to the emergency department via EMS for evaluation of left hip pain status post fall. Patient states she was walking in her home this morning around 2 AM going to the kitchen when she lost her balance and fell onto her left side/hip on the floor. Patient is relatively poor historian and is unable to remember if she landed on carpet or hardwood. She does report history of frequent falls secondary to MS. She called EMS who assisted in getting her up and putting on the couch. She then went back to sleep and in the morning when she attempted to get up from the couch she noted that she cannot put weight on her left hip due to pain. She denies head injury or loss of consciousness. She is not on any blood thinners. She denies previous injury or surgery to the left hip. She has baseline numbness/tingling in her lower extremities secondary to the MS and denies any new symptoms. She denies pain anywhere else including headache, dizziness/lightheadedness, nausea/vomiting, chest pain, shortness of breath, abdominal pain, neck or back pain, pain in her upper extremities. She did take 2 aspirin prior to arrival for her discomfort. She reports that she lives alone and typically cares for herself. She does have a brother and sister who lives in [facility] [place]. She ambulates with a cane when out in public. Home Medications Medication Instructions Recorded Confirmed Type desvenlafaxine succinate 50 mg 50 mg PO QAM 06/10/19 12/14/23 History tablet,extended release 24 hr (Pristiq) cyanocobalamin (vitamin B-12) 1,000 mcg PO DAILY 06/15/19 12/14/23 History 1,000 mcg capsule alendronate 70 mg tablet 70 mg PO WK 06/20/21 12/14/23 History amlodipine 2.5 mg tablet 2.5 mg PO QAM 02/06/23 12/14/23 History folic acid 400 mcg tablet 0.4 mg PO DAILY 12/14/23 12/14/23 History Allergies Allergy/AdvReac Type Severity Reaction Status Date / Time ampicillin Allergy Intermediate Hives Verified 12/14/23 17:20 ciprofloxacin [From Cipro] Allergy Intermediate Hives Verified 12/14/23 17:20 metronidazole [From Flagyl] Allergy Intermediate Rash Verified 12/14/23 17:20 Penicillins Allergy Intermediate Hives Verified 12/14/23 17:20 Sulfa (Sulfonamide Allergy Intermediate Hives Verified 12/14/23 17:20 Antibiotics) tetracycline Allergy Intermediate Hives Verified 12/14/23 17:20 Past Med/Surg History Medical History Multiple sclerosis Subdural hematoma "s/p surgical intervention " B12 deficiency Depression HTN (hypertension) Generalized weakness Surgical History S/P removal of ovarian cyst History of dental surgery H/O colonoscopy Family History Other Cancer Heart disease Neurological disorder Social History Smoking Status: Never smoker Tobacco Type: Cigarettes Second Hand Exposure: No; Do You Dip or Chew Tobacco: No; Hx Alcohol Use: Yes Alcohol type: wine Hx Substance Use: No Preferred Language: Macedonian Communication Ability: Effective Polishing 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 Required: No Beliefs That Will Affect Care: None marital status: Single Current Living Situation: Alone current occupational status: retired Other Information That Helps Us Care for You: No Feels Safe at Home: Yes Safety Concerns: Feels Safe At This Time Assistive Devices: Cane, Walker and Other Physical Exam Vital Signs Vital Signs - 24 hr 12/14/23 13:02 12/14/23 13:35 Temperature 36.5 C Temperature Source Oral Pulse Rate 81 81 Pulse Rhythm Regular Pulse Strength Normal Respiratory Rate 22 Respiratory Effort / Characteristics Non-Labored Spontaneous Respiratory Depth Normal Blood Pressure 151/91 H Blood Pressure Mean 111 Blood Pressure Position Lying Pulse Oximetry 95 Oxygen Delivery Method Room Air Sepsis Recent Fever Within 48 Hours No Sepsis New/Unexplained Change in Mental Status No Sepsis Action Taken by Nursing No Action Required Constitutional: alert and oriented x3. no acute distress. nontoxic HEENT: normocephalic, atraumatic. No facial trauma. No scalp tenderness or hematoma. Normal conjunctiva.PERRLA. EOM's grossly intact. TMs pearly luna without effusion. Pharynx pink without exudate. Tonsils nonenlarged. Mucus membranes moist Neck: neck is supple, nontender. Midline C-spine nontender Respiratory: lungs are clear to auscultation without wheezes, rhonchi, or rales bilaterally. equal chest rise. normal respiratory effort, no accessory muscle use. No chest wall or rib tenderness Cardiovascular: normal heart sounds without murmur. regular rate and rhythm. GI: abdomen is soft, nontender. No palpable masses. No rebound tenderness or guarding. MSK: Tenderness to palpation over the left lateral hip/proximal thigh. No obvious rotation or shortening. No knee or ankle tenderness. Able to perform hip flexion without significant pain. Knee and ankle ROM intact. Remaining extremities unremarkable Peripheral vascular: Lower extremities warm and well perfused with palpable pedal pulses. Brisk capillary refill of all digits. Sensation grossly intact Neuro: without focal neuro deficits. GCS 15. Answers questions appropriately, follows commands. CNII-XII intact. Speech clear, tongue midline, without facial droop. Strength equal throughout all for extremities. Psych:appropriate mood and affect. Course Administered Medications Acetaminophen (Acetaminophen 500 Mg Tab) 1,000 mg PO Q8 [facility] Stop: 01/13/24 19:14 Last Admin: 12/15/23 05:34 Dose: 1,000 mg Documented By: Admin: 12/14/23 20:17 Dose: 1,000 mg Documented By: EKF Amlodipine Besylate (Amlodipine Besylate 5 Mg Tab) 2.5 mg PO QAM [facility] Stop: 01/13/24 19:59 Last Admin: 12/15/23 09:04 Dose: Not Given Documented By: Admin: 12/14/23 20:25 Dose: 2.5 mg Documented By: EKF Bisacodyl (Bisacodyl 5 Mg Tabec) 10 mg PO DAILY [facility] Stop: 01/14/24 08:59 Last Admin: 12/15/23 09:10 Dose: 10 mg Documented By: ROMIE Cyanocobalamin (Cyanocobalamin (B-12) 500 Mcg Tablet) 1,000 mcg PO DAILY SONIA Stop: 01/14/24 08:59 Last Admin: 12/15/23 09:09 Dose: 1,000 mcg Documented By: ROMIE Folic Acid (Folic Acid 400 Mcg Tab) 400 mcg PO DAILY SONIA Stop: 01/14/24 08:59 Last Admin: 12/15/23 09:10 Dose: 400 mcg Documented By: ROMIE Hydroxyzine HCl (Hydroxyzine Hcl 25 Mg Tab) 25 mg PO HS PRN PRN Reason: Anxiety Stop: 01/13/24 20:38 Last Admin: 12/14/23 21:29 Dose: 25 mg Documented By: EKF Melatonin (Melatonin 3 Mg Tab) 3 mg PO HS PRN PRN Reason: Sleep Stop: 01/14/24 00:49 Last Admin: 12/15/23 01:26 Dose: 3 mg Documented By: ADELIA Nystatin (Nystatin Cr 15 Gm Tube) 1 appln EXT TuFr@0900 SONIA Stop: 01/14/24 00:59 Last Admin: 12/15/23 01:28 Dose: Not Given Documented By: ADELIA Polyethylene Glycol (Polyethylene (Miralax) 17 Gm Pack) 17 gm PO DAILY SONIA Stop: 01/14/24 08:59 Last Admin: 12/15/23 09:04 Dose: Not Given Documented By: ROMIE Tramadol HCl (Tramadol Hcl 50 Mg Tablet) 50 mg PO Q4H PRN PRN Reason: Moderate Pain (Scale 4, 5, 6) Stop: 01/13/24 19:14 Last Admin: 12/14/23 21:29 Dose: 50 mg Documented By: ADELIA Discontinued Medications Sodium Chloride (Nss) 500 mls @ 999 mls/hr IV .Q31M ONE Stop: 12/14/23 13:57 Last Infusion: 12/14/23 14:18 Dose: Infused Documented By: Admin: 12/14/23 13:38 Dose: 999 mls/hr Documented By: IGOR Acetaminophen (Ofirmev) 1,000 mg in 100 mls @ 400 mls/hr IV NOW STA Stop: 12/14/23 16:47 Last Infusion: 12/14/23 18:32 Dose: Infused Documented By: Admin: 12/14/23 17:00 Dose: 400 mls/hr Documented By: ANSON Lactated Ringer's (Lr) 1,000 mls @ 80 mls/hr IV .[id number] SONIA Stop: 01/14/24 07:59 Last Infusion: 12/15/23 10:28 Dose: Infused Documented By: Infusion: 12/15/23 09:47 Dose: 0 mls/hr Documented By: Admin: 12/15/23 09:10 Dose: 80 mls/hr Documented By: ROMIE Medical Decision Making Differential Diagnosis Fracture, subluxation, dislocation, contusion, ligamentous injury, neurovascular, compartment syndrome, rhabdomyolysis, as well as other pathologies. Laboratory Data Attestation: I reviewed the patient's lab results. 12/15/23 07:42 12/15/23 07:42 Lab Results 12/14/23 Range/Units 13:37 WBC 7.05 (4.8-10.8) K/ul RBC 4.19 L (4.20-5.40) M/uL Hgb 14.2 (12.0-16.0) g/dl Hct 42.6 (37.0-47.0) % MCV 101.7 H (80.0-100.0) fL MCH 33.9 (25.0-34.0) pg MCHC 33.3 (32.0-36.0) g/dL RDW Std Deviation 47.8 H (36.4-46.3) fL RDW Coeff of Love 12.9 (11.5-14.5) % Plt Count 305 (130-400) K/uL MPV 9.5 (9.4-12.4) fL Immature Gran % (Auto) 0.6 % Neut % (Auto) 67.2 % Lymph % (Auto) 17.9 % [place] % (Auto) 10.5 % Eos % (Auto) 2.8 % Baso % (Auto) 1.0 % Neut # (Auto) 4.74 (1.40-6.50) K/uL Lymph # (Auto) 1.26 (1.20-3.40) K/uL [place] # (Auto) 0.74 H (0.11-0.59) K/uL Eos # (Auto) 0.20 (0.00-0.50) K/uL Baso # (Auto) 0.07 (0.00-0.20) K/uL Immature Gran # (Auto) 0.04 (0.01-0.20) K/uL Sodium 136 (136-145) mmol/L Potassium 4.1 (3.5-5.1) mmol/L Chloride 96 L (98-107) mmol/L Carbon Dioxide 25 (21-32) mmol/L Anion Gap 15 H (3-11) BUN 12 (6-23) mg/dl Creatinine 0.71 (0.6-1.2) mg/dl Est Cr Clr Drug Dosing 60.9 ml/min Est GFR ( Amer) 95.2 ml/min Est GFR (Non-Af Amer) 82.2 ml/min BUN/Creatinine Ratio 16.9 (10-20) Glucose 75 (70-99(Fasting)) mg/dl Calcium 10.2 (8.6-10.3) mg/dl Total Bilirubin 0.8 (0.2-1.0) mg/dl AST 50 H (13-39) U/L ALT 34 (7-52) U/L Alkaline Phosphatase 106 H (34-104) U/L Total Creatine Kinase 143 (26-192) U/L Total Protein 8.4 H (6.0-8.3) gm/dl Albumin 5.0 (3.4-5.0) gm/dl Globulin 3.4 (2.5-4.0) gm/dl Albumin/Globulin Ratio 1.5 (0.9-2) Imaging Data Radiologist's Impression: Chest X-Ray 12/14/23 13:25 XR chest 1V portable CLINICAL HISTORY: fall COMPARISON STUDY: Chest radiograph November 06, 2016. FINDINGS: Lung volumes are normal. No pneumothorax. There is slight blunting of the left costophrenic angle with mild left basilar opacity. Mild cardiomegaly. Mediastinal contours are normal. There is no evidence for pulmonary edema. IMPRESSION: 1. No pneumothorax. 2. Minimal left basilar opacity. Possible trace left pleural effusion. ACT 112: Negative or not required by law. Electronically signed by: Abdifatah Rod M.D. 12/14/2023 2:28 PM Hip/Pelvis X-Ray 12/14/23 13:25 XR hip LT 2V w pelvis HISTORY: 78 years-old Female L lateral hip acute pelvic pain status post fall COMPARISON: CT abdomen and pelvis 03/09/2012 TECHNIQUE: AP view the pelvis with 2 views of the left hip FINDINGS: [id number] osteoarthritis of the hips. Avascular necrosis of the femoral heads again noted without evidence of articular collapse. Soft tissue calcifications within the gluteal tissues. No acute fracture or dislocation. IMPRESSION: 1. No acute fracture or dislocation. 2. 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 ACT 112: Negative or not required by law. The above report was generated using voice recognition software. It may contain grammatical, syntax or spelling errors. Electronically signed by: Venkat Oliver M.D. 12/14/2023 3:[address] 12/14/23 14:51 CT cervical spine wo con CLINICAL HISTORY: 78 years-old Female with unwitnessed fall. Acute neck injury status post fall COMPARISON: Head CT of same day TECHNIQUE: Multiple axial CT images of the cervical spine were obtained without contrast. A dose lowering technique was utilized adhering to the principles of ALARA. FINDINGS: Demineralized. The bones. Multilevel degenerative changes including moderate disc space narrowing at C6-C7. Grade 1 anterolisthesis C4 on C5, likely secondary to chronic facet arthrosis. There is severe multilevel facet arthropathy. The cervical soft tissues appear unremarkable. The visualized lung apices appear clear. IMPRESSION: No acute cervical spine fracture or subluxation. ACT 112: Negative or not required by law. The above report was generated using voice recognition software. It may contain grammatical, syntax or spelling errors. Electronically signed by: Venkat Oliver M.D. 12/14/2023 4:[address] 12/14/23 14:51 CT OF THE HEAD WITHOUT CONTRAST CLINICAL HISTORY: unwitnessed fall COMPARISON STUDY: Head CT February 06, 2023. TECHNIQUE: Helical axial images of the head were obtained without IV contrast. Automated exposure control was utilized for the study. A dose lowering technique was utilized adhering to the principles of ALARA. FINDINGS: No acute intracranial hemorrhage, midline shift or mass effect is present. The ventricular system is stable. Basal cisterns are patent. There are no extra axial collections. Left sided juan holes are noted. There is a small left posterior scalp contusion. There is no calvarial fracture. IMPRESSION: 1. No acute intracranial findings. 2. Small left posterior scalp contusion. No calvarial fracture. ACT 112: Negative or not required by law. Electronically signed by: Abdifatah Rod M.D. 12/14/2023 4:[address] 12/14/23 14:51 CT hip LT wo con CLINICAL HISTORY: L hip pain, can't bear wt, xr neg COMPARISON STUDY: Left hip radiographs performed earlier today. CT of the abdomen and pelvis March 09, 2012. TECHNIQUE: Axial images of the left hip were obtained without IV contrast. Sagittal and coronal reconstructions were viewed. Automated exposure control was utilized for the study. A dose lowering technique was utilized adhering to the principles of ALARA. FINDINGS: No proximal left femoral fracture is noted. There is avascular necrosis of the left femoral head without collapse. An acute minimally displaced fracture of the visualized inferior left sacroiliac is present. There is an acute displaced fracture of the left inferior pubic ramus as well as the medial left pubic bone. In addition, there is an acute comminuted nondisplaced fracture of the anterior wall of the left acetabulum with intra-articular extension. No intra-articular bone fragment are present. IMPRESSION: 1. No acute proximal left femoral fracture. Avascular necrosis of the left femoral head. 2. Acute comminuted nondisplaced fracture of the anterior wall of the left acetabulum with intra-articular extension. No intra-articular bone fragments. 3. Acute nondisplaced fractures of the left inferior pubic ramus and the medial left pubic bone. 4. Partially visualized acute minimally displaced left inferior sacral ala fracture. ACT 112: Negative or not required by law. Electronically signed by: Abdifatah Rod M.D. 12/14/2023 4:19 PM MDM Narrative 78-year-old female who presents to the emergency department via EMS for evaluation of left hip pain status post ground-level fall. Review of pertinent visits and past medical history performed. Vital signs in ED stable, afebrile. Patient was seen and evaluated as above. She reports mechanical fall around 2 AM this morning onto her left hip. EMS did initially respond to call to assist her up. Following attempting to get up later this morning, she was unable to bear weight to the left leg prompting evaluation. Patient denies any head injury however is a relatively poor historian as she was unable to tell me if she fell on the carpet or hardwood floor. Patient lives alone and fall was unwitnessed. He initially declined need for pain medication while in the ED. Given presentation, IV access was established and labs and imaging were obtained. CBC without significant leukocytosis or acute anemia. CMP without significant electrolyte abnormalities. Renal function within normal limits. AST mildly elevated at 50, ALT and alk phos within normal limits. Chest x-ray demonstrates minimal left basilar opacity. Left hip/pelvis x-ray performed and negative for acute bony abnormality. An ambulatory trial was attempted however patient was unable to bear weight to the left extremity. CT of the left hip was therefore performed as well as head and neck CT given unwitnessed fall and inability to exactly recall events. Head/neck CT unremarkable. No acute intracranial hemorrhage, skull fracture, cervical neck fracture. Small left posterior scalp contusion noted. Left hip CT without contrast demonstrates acute comminuted nondisplaced fracture of the anterior wall of the left acetabulum with intra-articular extension. There is also an acute nondisplaced fracture of the left inferior pubic ramus and medial left pubic bone as well as minimally displaced left inferior sacral ala fracture. Case was discussed with on-call orthopedics physician equity sales assistant, DALILA Bashir who is working with Dr. Bettencourt, and is agreeable to see patient in consultation. Recommended flat foot weight bearing as tolerated and pain control as needed. Patient was reassessed on multiple occasions throughout ED stay and remained stable. She did eventually request something for pain and was given 1 g IV Tylenol. She was updated on all exam findings and test results. She sustained fracture to the left pelvis and hip. Patient would benefit from admission to the hospital for orthopedic evaluation and physical therapy as necessary. She was agreeable to plan. I discussed case with hospitalist, Era Dumont PA-C, who graciously accepted patient to their service for further management. Patient was admitted in stable condition. Case was discussed with ED attending, Dr. Padron, who agrees with treatment and work up plan. Impression & Plan Closed fracture of left pelvis, Multiple sclerosis, Fall from ground level, Closed head injury Discharge Plan Visit Data Chief Complaint: Fall Stated Complaint: fall ED Provider: Martin Padron ED Midlevel Provider: Tiffany Candelario Discharge Problem: Closed fracture of left pelvis, Multiple sclerosis, Fall from ground level, Closed head injury Patient Disposition: Admitted As Inpatient Discharge Instructions Interventions: ED Discharge Assessment Last Done: 12/14/23 18:30 Addendum December 15, 2023 12:25 HPI: The patient is a 78-year-old woman with a past medical history of multiple sclerosis, history of subdural hematoma status postsurgical invention, hypertension, depression who presents emergency department for evaluation of a fall with left hip pain. Patient had apparently fallen onto him this morning when she was walking at home going to the kitchen when she lost her balance falling onto her left side. EMS was called for lift assist and the patient went back to sleep. In the morning she notes she cannot put weight on her left hip due to the pain. A/P: WBC, H/H and platelets normal limits. Chemistry without metabolic acidosis. LFTs similar to prior. CPK is not elevated. CT of the head and C-spine were performed and were negative for ICH, fracture or dislocation. There is made of a small left posterior scalp contusion. Chest x- ray without traumatic findings with minimal left basilar opacity.. Plain films of the left hip did not show overt fracture or avascular necrosis of bilateral femoral heads was described. However given patient could not bear weight a CT of the left hip was performed and demonstrated acute comminuted nondisplaced fracture to the anterior wall of the left acetabulum with intra-articular extension. Additional nondisplaced fracture of the left inferior pubic ramus and medial left pubic bone are noted. Partially visualized acute minimally displaced left inferior sacral brendan fracture is also seen. The patient was brought to the hospital service for admission for further management. GAYLE Candelario did also review with orthopedic surgery who will be available for inpatient team consultation. I was consulted by the Advanced Practice Provider and was substantively involved in the patient's visit.This includes aspects of the HPI, MDM, diagnostic interpretations, and disposition/plan. I discussed the case with the GAYLE and agree with the findings and plan as documented in GAYLE Candelario's note.
[2023-12-14] MEDS: SODIUM CHLORIDE 0.9% 500 ML IV ONE (13:38)
[2023-12-14 14:01] LABS: Basophils # (auto) 0.07 K/uL (0.00-0.20); Eosinophils % (auto) 2.8 %; Hematocrit (blood only) 42.6 % (37.0-47.0); Hemoglobin 14.2 g/dl (12.0-16.0); Immature Granulocytes # (auto) 0.04 K/uL (0.01-0.20); Immature Granulocytes % (auto) 0.6 %; Lymphocytes # (auto) 1.26 K/uL (1.20-3.40); Lymphocytes % (auto) 17.9 %; Mean Corpuscular Hemoglobin 33.9 pg (25.0-34.0); Mean Corpuscular Hgb Conc 33.3 g/dL (32.0-36.0); Mean Corpuscular Volume 101.7 fL (80.0-100.0); Mean Platelet Volume 9.5 fL (9.4-12.4); Monocytes # (auto) 0.74 K/uL (0.11-0.59); Monocytes % (auto) 10.5 %; Neutrophils # (auto) 4.74 K/uL (1.40-6.50); Neutrophils % (auto) 67.2 %; Platelet Count 305 K/uL (130-400); RDW Coefficient of Variation 12.9 % (11.5-14.5); RDW Standard Deviation 47.8 fL (36.4-46.3); Red Blood Count 4.19 M/uL (4.20-5.40); White Blood Count 7.05 K/ul (4.8-10.8)
[2023-12-14 14:26] LABS: Albumin Globulin Ratio 1.5 (0.9-2); BUN Creatinine Ratio 16.9 (10-20); Bilirubin,Total 0.8 mg/dl (0.2-1.0); Calcium 10.2 mg/dl (8.6-10.3); Creatinine Clr Calc Pharmacy 60.9 ml/min; Est GFR (African American) 95.2 ml/min; Est GFR (Non-African American) 82.2 ml/min; Globulin 3.4 gm/dl (2.5-4.0); Potassium 4.1 mmol/L (3.5-5.1); Total Protein 8.4 gm/dl (6.0-8.3)
--- NOTE | 2023-12-14 14:30 | XRay Report ---
XR chest 1V portable CLINICAL HISTORY: fall COMPARISON STUDY: Chest radiograph November 06, 2016. FINDINGS: Lung volumes are normal. No pneumothorax. There is slight blunting of the left costophrenic angle with mild left basilar opacity. Mild cardiomegaly. Mediastinal contours are normal. There is n o evidence for pulmonary edema. IMPRESSION: 1. No pneumothorax. 2. Minimal left basilar opacity. Possible trace left pleural effusion. ACT 112: Negative or not required by law. Electronically signed by: Abdifatah Rod M.D. 12/14/2023 2:28 PM
--- NOTE | 2023-12-14 15:33 | XRay Report ---
XR hip LT 2V w pelvis HISTORY: 78 years-old Female L lateral hip acute pelvic pain status post fall COMPARISON: CT abdomen and pelvis 03/09/2012 TECHNIQUE: AP view the pelvis with 2 views of the left hip FINDINGS: [id number] osteoarthritis of the hips. Avascular necrosis of the femoral heads again noted with out evidence of articular collapse. Soft tissue calcifications within the gluteal tissues. No acute f racture or dislocation. IMPRESSION: 1. No acute fracture or dislocation. 2. 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 ACT 112: Negative or not required by law. The above report was generated using voice recognition software. It may contain grammatical, syntax o r spelling errors. Electronically signed by: Venkat Oliver M.D. 12/14/2023 3:32 PM
--- NOTE | 2023-12-14 16:14 | CT Scan Report ---
CT OF THE HEAD WITHOUT CONTRAST CLINICAL HISTORY: unwitnessed fall COMPARISON STUDY: Head CT February 06, 2023. TECHNIQUE: Helical axial images of the head were obtained without IV contrast. Automated exposure con trol was utilized for the study. A dose lowering technique was utilized adhering to the principles o f ALARA. FINDINGS: No acute intracranial hemorrhage, midline shift or mass effect is present. The ventricular system is stable. Basal cisterns are patent. There are no extra axial collections. Left sided juan ho les are noted. There is a small left posterior scalp contusion. There is no calvarial fracture. IMPRESSION: 1. No acute intracranial findings. 2. Small left posterior scalp contusion. No calvarial fracture. ACT 112: Negative or not required by law. Electronically signed by: Abdifatah Rod M.D. 12/14/2023 4:13 PM
--- NOTE | 2023-12-14 16:20 | CT Scan Report ---
CT hip LT wo con CLINICAL HISTORY: L hip pain, can't bear wt, xr neg COMPARISON STUDY: Left hip radiographs performed earlier today. CT of the abdomen and pelvis March 09, 2012. TECHNIQUE: Axial images of the left hip were obtained without IV contrast. Sagittal and coronal recon structions were viewed. Automated exposure control was utilized for the study. A dose lowering techn ique was utilized adhering to the principles of ALARA. FINDINGS: No proximal left femoral fracture is noted. There is avascular necrosis of the left femoral head without collapse. An acute minimally displaced fracture of the visualized inferior left sacroil iac is present. There is an acute displaced fracture of the left inferior pubic ramus as well as the medial left pubic bone. In addition, there is an acute comminuted nondisplaced fracture of the anteri or wall of the left acetabulum with intra-articular extension. No intra-articular bone fragment are p resent. IMPRESSION: 1. No acute proximal left femoral fracture. Avascular necrosis of the left femoral head. 2. Acute comminuted nondisplaced fracture of the anterior wall of the left acetabulum with intra-niurka cular extension. No intra-articular bone fragments. 3. Acute nondisplaced fractures of the left inferior pubic ramus and the medial left pubic bone. 4. Partially visualized acute minimally displaced left inferior sacral ala fracture. ACT 112: Negative or not required by law. Electronically signed by: Abdifatah Rod M.D. 12/14/2023 4:19 PM
--- NOTE | 2023-12-14 16:30 | CT Scan Report ---
CT cervical spine wo con CLINICAL HISTORY: 78 years-old Female with unwitnessed fall. Acute neck injury status post fall COMPARISON: Head CT of same day TECHNIQUE: Multiple axial CT images of the cervical spine were obtained without contrast. A dose low ering technique was utilized adhering to the principles of ALARA. FINDINGS: Demineralized. The bones. Multilevel degenerative changes including moderate disc space kailee rowing at C6-C7. Grade 1 anterolisthesis C4 on C5, likely secondary to chronic facet arthrosis. There is severe multilevel facet arthropathy. The cervical soft tissues appear unremarkable. The visualized lung apices appear clear. IMPRESSION: No acute cervical spine fracture or subluxation. ACT 112: Negative or not required by law. The above report was generated using voice recognition software. It may contain grammatical, syntax o r spelling errors. Electronically signed by: Venkat Oliver M.D. 12/14/2023 4:27 PM
--- NOTE | 2023-12-14 16:48 | History & Physical Report ---
Date of Service December 14, 2023 Assessment & Plan (1) Left acetabular fracture: (2) Fracture of left inferior pubic ramus: (3) Multiple sclerosis: Plan: - Admit to [facility] [place] -Orthopedics consulted for left acetabular fracture and left inferior pubic rami fracture -Allow diet tonight, n.p.o. at midnight in case of needs for surgical procedure -CXR is negative, EKG reviewed without any ST wave inversions or signs of ischemia -Patient does not appear to be on any acute medications for MS and has not in an acute MS flare -Pain control with [id number] Tylenol, tramadol Q6H prn, and IV MS for breakthrough pain -Check vitamin D level -Bowel regimen ordered - Pt drinks wine 1-2 glasses daily, noted slight elevation in AST and alk phos, would recommend reducing alcohol consumption in the setting of MS and fall (4) HTN (hypertension): Plan: -Chronic, stable, continue amlodipine 2.5 mg daily (5) Edema leg: Plan: -Checking ultrasound bilateral lower extremities with Doppler, right edema 2+ pitting up to the level of the knee, greater than that on the left, rule out DVT (6) B12 deficiency: Plan: -Continue B12 supplementation DVT ppx: teds, scds Lines: 2 PIV FEN/GI: Allow HH diet tonight, NPO after midnight CODE: FULL Dispo: From home, likely to remain in the hospital x 1-2 days A total of 75 minutes were spent with greater than 50% of that time face to face with the patient, personally reviewing all current laboratories, imaging studi es, past medication reconciliation, outpatient chart review, and discussion with specialists to collaborate care for the patient with attending. Please see attending documentation for corrections and/or additions. History of Present Illness Chief Complaint: Hip pain, Inability to bear weight Primary Care Provider: Carlos Bhagat MD This is a 78yo F with PMHx of multiple sclerosis, HTN, B12 deficiency, diastolic dysfunction, trace mitral regurg, fatty liver, MDD and chronic tremulousness in her face,who presents to the hospital with acute worsening inability to bear weight on her left leg, and hip pain. Pt reports she has hx of MS and this happens occasionally. Last night she was trying to walk into the kitchen, fell denies any presyncopal symptoms, lightheadedness or dizziness however could not get up on her own. She states her right leg is always a little weaker than the left. Called EMS who got her on her couch, and this morning she found that she was unable to bear weight without significant amount of pain. She lives at home by herself, typically ambulates with use of a cane outside, but does not use assistive device in the house. She had to use her walker this morning, because it was very difficult to put weight on it. Pt moves bowels routinely every other day. Social : Pt drinks a glass of wine every day, denies any tobacco use or illicit drug use. Patient is found to have avascular necrosis of the left femoral head, acute comminuted nondisplaced fracture of the anterior wall of the left acetabulum with intra-aortic reticular extension, acute nondisplaced fracture of the left inferior pubic ramus and medial left pubic bone, minimally displaced left inferior sacral ala fracture on CT of the hip Allergies Allergy/AdvReac Type Severity Reaction Status Date / Time ampicillin Allergy Intermediate Hives Verified 12/14/23 17:20 ciprofloxacin [From Cipro] Allergy Intermediate Hives Verified 12/14/23 17:20 metronidazole [From Flagyl] Allergy Intermediate Rash Verified 12/14/23 17:20 Penicillins Allergy Intermediate Hives Verified 12/14/23 17:20 Sulfa (Sulfonamide Allergy Intermediate Hives Verified 12/14/23 17:20 Antibiotics) tetracycline Allergy Intermediate Hives Verified 12/14/23 17:20 Home Medications Medication Instructions Recorded Confirmed Type desvenlafaxine succinate 50 mg 50 mg PO QAM 06/10/19 12/14/23 History tablet,extended release 24 hr (Pristiq) cyanocobalamin (vitamin B-12) 1,000 mcg PO DAILY 06/15/19 12/14/23 History 1,000 mcg capsule alendronate 70 mg tablet 70 mg PO WK 06/20/21 12/14/23 History amlodipine 2.5 mg tablet 2.5 mg PO QAM 02/06/23 12/14/23 History folic acid 400 mcg tablet 0.4 mg PO DAILY 12/14/23 12/14/23 History Past Med/Surg History Medical History Multiple sclerosis Subdural hematoma "s/p surgical intervention " B12 deficiency Depression HTN (hypertension) Generalized weakness Surgical History S/P removal of ovarian cyst History of dental surgery H/O colonoscopy Family History Other Cancer Heart disease Neurological disorder Social History Smoking Status: Never smoker Tobacco Type: Cigarettes Second Hand Exposure: No; Do You Dip or Chew Tobacco: No; Hx Alcohol Use: Yes Alcohol type: wine Hx Substance Use: No Preferred Language: Bel[place]ian Communication Ability: Effective Ship Unloader Required: Yes and No Beliefs That Will Affect Care: None marital status: Single Current Living Situation: Alone current occupational status: retired Other Information That Helps Us Care for You: No Feels Safe at Home: Yes Safety Concerns: Feels Safe At This Time Assistive Devices: Cane and Glasses Review of Systems Review of Systems: Constitutional: No fever, sweats or chills Eyes: No diplopia, no worsening or blurred vision ENT: normal hearing, no trouble swallowing Respiratory: No cough, sputum, dyspnea at rest or on exertion Cardiovascular: No chest pain, tightness or palpitations Abdomen: No pain, nausea, vomiting, diarrhea or constipation Musculoskeletal: + multiple sclerosis, Left hip pain, calf pain, +swelling Neurologic: + chronic MS weakness, no numbness/tingling, + uses a cane balance problems Psychiatric: + depression on medication Skin: No rash or itch Physical Exam Physical Exam: General: awake, alert, no apparent distress, + tremulousness in facial muscles. Head: Normocephalic, atraumatic ENT: PERRL, EOMI, no pharyngeal exudate, mucous membranes moist Chest: Clear to auscultation, on room air, no adventitious breath sounds Cardiac: Regular rate and rhythm, no murmur, no JVD, normal peripheral pulses, good capillary refill Abdominal: NABS x 4 quadrants, soft, nondistended, nontender to palpation, no rebound or guarding Extremities: + mild muscular atrophy in lower extremities, L hip pain with movement, 2+ pitting edema in the RLE, she is slightly less swollen in the Left leg, no erythema, calfs nontender to palpation Psych: Normal mood and affect Neuro: AAO x 3, strength intact bilaterally and rated 4/5, no motor deficits, speech is clear, no peripheral sensory deficits Results & Data Results & Data Vital Signs (Past 12 Hours) Vital Signs Temp Pulse Resp BP Pulse Ox O2 Del Method 12/14/23 13:35 81 12/14/23 13:02 36.5 C 81 22 151/91 H 95 Room Air Laboratory Results 12/14/23 13:37 WBC 7.05 RBC 4.19 L Hgb 14.2 Hct 42.6 MCV 101.7 H MCH 33.9 MCHC 33.3 RDW Std Deviation 47.8 H RDW Coeff of Love 12.9 Plt Count 305 MPV 9.5 Immature Gran % (Auto) 0.6 Neut % (Auto) 67.2 Lymph % (Auto) 17.9 [place] % (Auto) 10.5 Eos % (Auto) 2.8 Baso % (Auto) 1.0 Neut # (Auto) 4.74 Lymph # (Auto) 1.26 [place] # (Auto) 0.74 H Eos # (Auto) 0.20 Baso # (Auto) 0.07 Immature Gran # (Auto) 0.04 Sodium 136 Potassium 4.1 Chloride 96 L Carbon Dioxide 25 Anion Gap 15 H BUN 12 Creatinine 0.71 Est Cr Clr Drug Dosing 60.9 Est GFR ( Amer) 95.2 Est GFR (Non-Af Amer) 82.2 BUN/Creatinine Ratio 16.9 Glucose 75 Calcium 10.2 Total Bilirubin 0.8 AST 50 H ALT 34 Alkaline Phosphatase 106 H Total Creatine Kinase 143 Total Protein 8.4 H Albumin 5.0 Globulin 3.4 Albumin/Globulin Ratio 1.5 Diagnostic Findings Chest X-Ray 12/14/23 13:25 XR chest 1V portable CLINICAL HISTORY: fall COMPARISON STUDY: Chest radiograph November 06, 2016. FINDINGS: Lung volumes are normal. No pneumothorax. There is slight blunting of the left costophrenic angle with mild left basilar opacity. Mild cardiomegaly. Mediastinal contours are normal. There is no evidence for pulmonary edema. IMPRESSION: 1. No pneumothorax. 2. Minimal left basilar opacity. Possible trace left pleural effusion. ACT 112: Negative or not required by law. Electronically signed by: Abdifatah Rod M.D. 12/14/2023 2:28 PM Hip/Pelvis X-Ray 12/14/23 13:25 XR hip LT 2V w pelvis HISTORY: 78 years-old Female L lateral hip acute pelvic pain status post fall COMPARISON: CT abdomen and pelvis 03/09/2012 TECHNIQUE: AP view the pelvis with 2 views of the left hip FINDINGS: [id number] osteoarthritis of the hips. Avascular necrosis of the femoral heads again noted without evidence of articular collapse. Soft tissue calcifications within the gluteal tissues. No acute fracture or dislocation. IMPRESSION: 1. No acute fracture or dislocation. 2. 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 ACT 112: Negative or not required by law. The above report was generated using voice recognition software. It may contain grammatical, syntax or spelling errors. Electronically signed by: Venkat Oliver M.D. 12/14/2023 3:[address] 12/14/23 14:51 CT cervical spine wo con CLINICAL HISTORY: 78 years-old Female with unwitnessed fall. Acute neck injury status post fall COMPARISON: Head CT of same day TECHNIQUE: Multiple axial CT images of the cervical spine were obtained without contrast. A dose lowering technique was utilized adhering to the principles of ALARA. FINDINGS: Demineralized. The bones. Multilevel degenerative changes including moderate disc space narrowing at C6-C7. Grade 1 anterolisthesis C4 on C5, likely secondary to chronic facet arthrosis. There is severe multilevel facet arthropathy. The cervical soft tissues appear unremarkable. The visualized lung apices appear clear. IMPRESSION: No acute cervical spine fracture or subluxation. ACT 112: Negative or not required by law. The above report was generated using voice recognition software. It may contain grammatical, syntax or spelling errors. Electronically signed by: Venkat Oliver M.D. 12/14/2023 4:[address] 12/14/23 14:51 CT OF THE HEAD WITHOUT CONTRAST CLINICAL HISTORY: unwitnessed fall COMPARISON STUDY: Head CT February 06, 2023. TECHNIQUE: Helical axial images of the head were obtained without IV contrast. Automated exposure control was utilized for the study. A dose lowering technique was utilized adhering to the principles of ALARA. FINDINGS: No acute intracranial hemorrhage, midline shift or mass effect is pres ent. The ventricular system is stable. Basal cisterns are patent. There are no extra axial collections. Left sided juan holes are noted. There is a small left posterior scalp contusion. There is no calvarial fracture. IMPRESSION: 1. No acute intracranial findings. 2. Small left posterior scalp contusion. No calvarial fracture. ACT 112: Negative or not required by law. Electronically signed by: Abdifatah Rod M.D. 12/14/2023 4:[address] 12/14/23 14:51 CT hip LT wo con CLINICAL HISTORY: L hip pain, can't bear wt, xr neg COMPARISON STUDY: Left hip radiographs performed earlier today. CT of the abdomen and pelvis March 09, 2012. TECHNIQUE: Axial images of the left hip were obtained without IV contrast. Sagittal and coronal reconstructions were viewed. Automated exposure control was utilized for the study. A dose lowering technique was utilized adhering to the principles of ALARA. FINDINGS: No proximal left femoral fracture is noted. There is avascular necrosis of the left femoral head without collapse. An acute minimally displaced fracture of the visualized inferior left sacroiliac is present. There is an acute displaced fracture of the left inferior pubic ramus as well as the medial left pubic bone. In addition, there is an acute comminuted nondisplaced fracture of the anterior wall of the left acetabulum with intra-articular extension. No intra-articular bone fragment are present. IMPRESSION: 1. No acute proximal left femoral fracture. Avascular necrosis of the left femoral head. 2. Acute comminuted nondisplaced fracture of the anterior wall of the left acetabulum with intra-articular extension. No intra-articular bone fragments. 3. Acute nondisplaced fractures of the left inferior pubic ramus and the medial left pubic bone. 4. Partially visualized acute minimally displaced left inferior sacral ala fracture. ACT 112: Negative or not required by law. Electronically signed by: Abdifatah Rod M.D. 12/14/2023 4:19 PM Code Status & VTE Plan Code Status Full code- Discussed with pt at bedside Supervising Physician Co-Signing Physician Notes I have seen and discussed the case with the collaborating advanced practitioner. I agree with the above H&P. I have reviewed and confirmed the patients medical history, the findings on physical examination, and the patients diagnosis and treatment plan with Tim CONNER and agree with the information documented. In short, Ms. Chapman 78 year old F with PMHx of multiple sclerosis, HTN, B12 deficiency, diastolic dysfunction, trace mitral regurg, fatty liver, MDD and chronic tremulousness in her face,who presents to the hospital with acute worsening inability to bear weight on her left leg, and hip pain and found to have left inferior pubic ramus, left medical pubic bone, as well as comminuted nondisplaced fracture of the left acetabulum. Patient reports mechanical fall in the evening and inability to walk thereafter. She denies any clear symptoms that prompted fall outside of chronic MS. GENERAL APPEARANCE: AxOx4, mildly dishevled appearing woman, chronic twitching noted on face HEENT: NC, AT. MMM. EOMI, clear conjunctiva, oropharynx clear. NECK: Supple without lymphadenopathy. No stiffness or restricted ROM. HEART: Normal rate and regular rhythm, normal S1/S1, no m/r/g LUNGS: CTAB, moving air well. No crackles or wheezes are heard. ABDOMEN: Soft, nontender, nondistended with good bowel sounds heard. BACK: No CVAT, no obvious deformity. EXTREMITIES: right lower extremity edema 2+ pedal, 1+ up kuhn, no tenderness NEUROLOGICAL: moving all extremities, diffuse facial twitching, reported as chronic per patient Skin: Warm and dry without any rash. #Left acetabulum fracture #Pubic ramus fracture #Mechanical fall -Pain management -PT/OT -Ortho NPO at midnight #Right lower extremity edema -Duplex negative DVT Rest of plan as above I spent a total of 25 minutes coordinating, documenting, and providing care for this patient excluding time spent in the performance of separately billed services. All of the aforementioned completed outside of collaborating with the assigned advanced practitioner for a full treatment plan. I have reviewed the advanced practitioner's documentation, and I agree with, and take responsibility for the plan of care
[2023-12-14] MEDS: ACETAMINOPHEN 1,000 MG/100 ML VIAL IV STA (17:00)
--- NOTE | 2023-12-14 18:33 | Ultrasound Report ---
BILATERAL LOWER EXTREMITY VENOUS DOPPLER CLINICAL HISTORY: Eval edema, R> L COMPARISON STUDY: Right lower extremity venous Doppler ultrasound June 20, 2021. TECHNIQUE: Sonography of the deep venous system of the bilateral lower extremities was performed. Co mpression and augmentation were evaluated. FINDINGS: The bilateral common femoral, superficial femoral and popliteal veins were compressible. A ugmentation was normal. Flow was shown within the deep calf vessels. IMPRESSION: No evidence of deep venous thrombus within the bilateral lower extremities. ACT 112: Negative or not required by law. Electronically signed by: Abdifatah Rod M.D. 12/14/2023 6:32 PM
[2023-12-14] MEDS ORDERED: MoRPHine SULFATE 2 MG/ML CARP IV PRN (19:15)
[2023-12-14] MEDS ORDERED: ONDANSETRON INJ 2 MG/ML 2 ML VIAL IV PRN (19:15)
[2023-12-14] MEDS: ACETAMINOPHEN 500 MG TAB PO SCH (20:17)
[2023-12-14] MEDS: amLODIPine BESYLATE 5 MG TAB PO SCH (20:25)
[2023-12-14] MEDS: hydrOXYzine HCl 25 MG TAB PO PRN (21:29)
[2023-12-14] MEDS: traMADol HCL 50 MG TABLET PO PRN (21:29)
--- OUTSIDE RECORDS SUMMARY | 2023-12-14 23:03 | External Medical Summary | Summary of Care ---
Author Name Unknown Organization [facility] Address [address] [place] [address] Phone [phone] Care Team Providers Care Band Sewer Name Role Phone Carlos Bhagat MD Primary Care Provider + Reason for Referral * Evaluate & Treat - Unlimited Visits (Within 30 days (routine)) - Authorized Specialty Diagnoses / Procedures Referred By Contac t Referred To Contact Urology Diagnoses Neurogenic bladder Madison Duran MD [facility] [place] [place] [address] Referral ID Status Reason Start Date Expiration Date Visits Requested Visits Authorized [id number] Authorized Specialty Services Required 3 [phone] Question Answer Referral Priority Within 30 days (routine) Where should this appointment be scheduled? [facility] What is the patient being referred for? Urinary Concerns Comments Neurogenic bladder, ms Reason for Visit * Reason Onset Date Comments Return Neuro Multiple Sclerosis Medication Administration 07/20/2023 Flu an d/or Pneumo Inj * Evaluate & Treat - Unlimited Visits (Within 30 days (routine)) - Authorized Specialty Diagnoses / Procedures Referred By Contac t Referred To Contact Neurology Diagnoses Multiple sclerosis (HCC) Carlos Bhagat MD [address] [place] [address] Referral ID Status Reason Start Date Expiration Date Visits Requested Visits Authorized [id number] Authorized Specialty Services Required 02/23/[phone] Encounter Details Date Type Department Care Team Description 07/20/2023 Office Visit Neurology Asael Izaguirre [place] [address] [place] [id number] Madison Duran MD [address] [facility] [place], [place] [address] MS (multiple sclerosis) ([facility])*; Neurogenic bladder; Need for prophylactic vaccination and inoculation against influenza Allergies Active Allergy Reactions Severity Noted Date Comments Ampicillin 03/25/2012 Rash Cefuroxime Rash 11/02/2019 Ciprofloxacin 06/01/2021 Metronidazole 11/02/2019 Losartan 12/03/2022 Hyperkalemia Penicillins 03/25/2012 Rash Sulfa Antibiotics 03/25/2012 Rash Tetracycline 03/25/2012 rash Trazodone 07/25/2022 Leg inability to move documented as of this encounter (statuses as of 07/20/2023) Medications Medication Sig Dispensed Refills Start Date End Date Status Cyanocobalamin (B-12) 1000 MCG TABSIndications:Macr ocytic anemia Take 1 Tab by mouth daily. 0 02/21/2019 Active Systane 0.4-0.3 % Ophthalmic Solution (Polyethyl Glycol-Propyl Glycol) Instill 1 Drop into both eyes 2 times a day. For dry eyes 10 mL 0 04/03/2021 Active hydrocortisone 2.5%/ white petrolatum 85%:15% TOP CREAIndications:Othe r atopic dermatitis Apply topically to affected area 2 times a day. Apply to itchy red rash on eyelids as needed 125 g 5 04/03/2021 Active Alendronate Sodium 70 MG Oral Tablet (Fosamax)Indications :High risk for fracture due to osteoporosis by DEXA scan take 1 tablet by mouth ONCE A WEEK WITH 8OZ OF WATER 30 MINUTES BEFORE THE FIRST MEAL OF THE DAY. REMAIN UPRIGHT FOR 30 MINUTES AFTER TAKING THE TABLET. 12 Tablet 1 02/14/2022 Active Folic Acid 1 MG Oral TabletIndications:Fo lic acid deficiency Take 1 Tablet by mouth in the morning. 30 Tablet 11 02/23/2023 Active Clobetasol Propionate 0.05 % External Ointment (Temovate)Indication s:Acute vulvitis Apply topically to affected area 2 times a day. Apply dime sized amount to groin twice a day for 2 weeks, once a day for 2 weeks, then stop use 30 g 0 03/24/2023 Active Clindamycin Phosphate 2 % Vaginal Cream (Cleocin) Administer 1 Applicator into the vagina at bedtime. for 5 days. 40 g 0 04/03/2023 Active Desvenlafaxine Succinate ER 50 MG Oral Tablet Extended Release 24 Hour (Pristiq)Indications :Depression Take 1 Tablet by mouth in the morning. In the morning.. 90 Tablet 3 04/20/2023 Active amLODIPine Besylate 2.5 MG Oral Tablet (Norvasc)Indications :HTN, goal below 140/90 Take 1 Tablet by mouth in the morning. 90 Tablet 3 04/20/2023 Active documented as of this encounter (statuses as of 07/20/2023) Active Problems Problem Noted Date Fungal rash of torso 12/31/2022 Adverse effect of losartan 12/03/2022 Overview: Hyperkalemia, nathen High risk for fracture due to osteoporos is by DEXA scan 03/12/2021 Fatty liver 02/15/2021 Recurrent major depressive disorder, in partial remission 06/17/2018 B12 deficiency 09/07/2017 Diastolic dysfunction 03/06/2017 Trace mitral regurgitation by prior echo cardiogram 11/21/2015 HTN, goal below 140/90 10/04/2015 History of subdural hemorrhage 3 Multiple sclerosis Overview: age 22 H/O Clostridium difficile infection Overview: last episode being 03/09/12 [facility] documented as of this encounter (statuses as of 07/20/2023) Resolved Problems Problem Noted Date Resolved Date Chronic kidney disease, stage 3a 03/19/2021 12/03/2022 Overview: Per CKD protocol Hypertensive heart disease without heart failure 12/13/2018 02/18/2019 Reactive depression 06/17/2018 06/17/2018 CHARLES-inhibitor cough 05/09/2016 02/18/2019 Heart failure, diastolic, due to HTN 11/21/2015 03/06/2017 Overview: Grade I by echo Medication monitoring encounter 10/14/2013 02/18/2019 Depression 06/17/2018 documented as of this encounter (statuses as of 07/20/2023) Immunizations Name Administration Dates Next Due COVID-19 mRNA, LNP-s, No Pre serve, 2-Dose Series (Pfizer) 01/02/2021,12/05/2020 Pneumococcal Conjugate Vacc, 13 Valent (Prevnar) 05/09/2016 Pneumococcal Polysaccharide PPV23 (Pneumovax) 06/01/2017,08/05/2011 SEASONAL INFLUENZA, PF, 6 M & Above, IM , (FLULAVAL or FLUZONE) 12/02/2018,09/07/2017 Seasonal Influenza, Quadriva lent Hd (Fluzone Hd) 07/20/2023,06/20/2021 Seasonal Influenza, Quadriva lent, No Preserve, IM 09/05/2016,08/28/2015 Seasonal Influenza, Quadriva lent, No Preserve, Peds 07/26/2022 Seasonal Influenza, Split, I IV3, With Preserve, Inj 06/23/2014,10/14/2013,09/13/2012 Seasonal Influenza, Trivalen t, Adjuvanted, 65+ yrs 08/14/2019 TDAP (age 10 and older)(Boostrix) 06/10/2019 documented as of this encounter Social History Tobacco Use Types Packs/Day Years Used Date Smoking Tobacco: Former Cigarettes 10 Q uit: 03/25/1975 Smokeless Tobacco: Never Comments:No passive smoke ex posures Alcohol Use Standard Drinks/Week Comments Yes 5.8 (1 standard drink = 0.6 oz p ure alcohol) 1 glass of wine nightly Alcohol Habits Answer Date Recorded How often do you have a drink containing alcohol ? 2-3 times a week 04/03/2021 How many drinks containing a lcohol do you have on a typical day when you are drinking? Not asked 04/03/2021 How often do you have six or more drinks on one occasion? Not asked 04/03/2021 Food Insecurity Answer Date Recorded Within the past 12 months, y ou worried that your food would run out before you got money to buy more. Never true 10/04/2019 Within the past 12 months, t he food you bought just didn't last and you didn't have money to get more. Never true 10/04/2019 Sex Assigned at Date Recorded Female 02/18/2019 1:40 PM E DT Job Start Date Occupation Industry Not on file Not on file Not on file documented as of this encounter Last Filed Vital Signs Vital Sign Reading Time Taken Comments Blood Pressure 122/76 07/20/2023 12:48 PM EDT Pulse 100 07/20/2023 12:48 PM EDT Temperature 36.1 C (96.9 F) 07/20/2023 12:48 PM E DT Respiratory Rate 16 07/20/2023 12:48 PM EDT Oxygen Saturation - - Inhaled Oxygen Concentration - - Weight 57.2 kg (126 lb 1.6 oz) 07/20/2023 12:48 PM EDT Height - - Body Mass Index 19.75 03/24/2023 11:31 AM EDT documented in this encounter Patient Instructions * Patient Instructions* SONALI Bond - 07/20/2023 1:53 PM EDT ~~PATIENT INSTRUCTIONS FOR FLU SHOT~~ Possible side effects of influenza vaccine, (flu shot), are usually mild and include: 1. Soreness or redness at injection site 2. Low grade fever 3. Body aches You may use Tylenol/Acetaminophen as needed for these symptoms. LET YOUR DOCTOR KNOW IMMEDIATELY IF YOU HAVE DIFFICULTY BREATHING OR SWALLOWING, EXPERIENCE ITCHINGOF FEET OR HANDS, HAVE SWELLING OF EYES, FACE OR INSIDE OF NOSE. documented in this encounter Progress Notes * Madison Duran MD - 07/20/2023 4:56 PM EDT Images from the original note were not included. CLINIC NOTES Neurology [address] [place] [address] Floresita Chapman : 1945 NEUROLOGY OUTPATIENT NOTE 07/20/2023 HISTORY: The patient is referred for consultation by Dr. Bhagat, who will be receiving a copy of this note. Patient comes today in follow-up of multiple sclerosis. She is been off disease modifying therapy for about a year having had adverse effects with Rebif. Her MRI the brain and cervical spine were unchanged there are no enhancing lesions. I have reviewed the images and reports they are as follows 06/28/2022 3:08 PM MRI BRAIN W WO CONTRAST Order: [id number] Status: Final result Visible to patient: Yes (seen) Next appt: 09/01/2023 at 01:40 PM in *Primary Care* (Carlos Bhagat MD) Dx: MS (multiple sclerosis) (HCC) 0 Result Notes Details Reading Physician Reading Date Result Priority Triston Peres MD [phone] 06/30/2022 Narrative & Impression EXAM MRI BRAIN W WO CONTRAST; MRI C SPINE W WO CONTRAST- 06/28/2022 HISTORY fu ms; 1 year fu assess for stability v progression COMPARISON MRI brain and cervical spine dated 06/14/2021 TECHNIQUE Multiplanar, multisequence magnetic resonance imaging of the brain and cervical spine was performedbefore and after the administration of intravenous contrast. FINDINGS BRAIN: Relatively mild supratentorial and infratentorial demyelinating lesions with superimposed chronic microvascular ischemia, are unchanged from prior examination. Small remote right cerebellar infarct again noted. No new or enhancing lesions are identified. Diffuse atrophy is again noted. Postoperative changes of left parietal craniotomy are seen. There is no evidence of acute ischemic infarction, intracranial hemorrhage, edema, mass effect, hydrocephalus, or extra-axial fluid collection. The expected major intracranial vascular flow voids arepreserved. Minimal mucosal thickening in the paranasal sinuses. The mastoid air cells are clear. CERVICAL SPINE: Multifocal demyelinating lesions are again seen throughout the cervical spinal cord. Accounting fordifferences in slice selection, no new lesions are identified. Within limitations of artifact, no enhancing lesions are identified. Straightening of the cervical lordosis is again noted. The vertebral body heights are maintained. Multilevel degenerative disc height loss is again seen, most notable at C5-C6 and C6-C7. Modic type 1degenerative endplate marrow signal changes and enhancement at C6-C7. At C5-C6, uncovertebral hypertrophy causes mild right neural foraminal narrowing. The spinal canal and neural foramina are otherwise patent. IMPRESSION IMPRESSION 1. Stable demyelinating lesions and chronic microvascular ischemia. No new or enhancing lesions areidentified. Generalized cerebral atrophy, greater than expected for age alone. 2. Moderately-extensive demyelinating lesions of the cervical spinal cord without convincing new orenhancing lesion. Patient is experiencing increasing urinary symptoms. She is previously seen Urology she feels she is having gradually more difficulty with gait she is had some falls which are typically occurring when she is not using her assistive devices in the home. Past Medical History: Diagnosis Date CHARLES-inhibitor cough 05/09/2016 B12 deficiency 09/07/2017 Chronic kidney disease, stage 3a (HCC) 03/19/2021 Per CKD protocol Depression Diastolic dysfunction 03/06/2017 Fatty liver 02/15/2021 H/O Clostridium difficile infection last episode being 03/09/12 [facility] High risk for fracture due to osteoporosis by DEXA scan 03/12/2021 HTN, goal below 140/90 10/04/2015 Multiple sclerosis (HCC) 1969 age 22 Recurrent major depressive disorder, in partial remission (HCC) 06/17/2018 Subdural hematoma (HCC) 2010 left sided requiring surgical intervention in [place], inability walk, improving Trace mitral regurgitation by prior echocardiogram 11/21/2015 Patient Active Problem List Diagnosis Code Multiple sclerosis (HCC) G35 H/O Clostridium difficile infection Z86.19 History of subdural hemorrhage Z86.79 HTN, goal below 140/90 I10 Trace mitral regurgitation by prior echocardiogram I34.0 Diastolic dysfunction I51.89 B12 deficiency E53.8 Recurrent major depressive disorder, in partial remission (HCC) F33.41 Fatty liver K76.0 High risk for fracture due to osteoporosis by DEXA scan M81.0 Adverse effect of losartan T46.5X5A Fungal rash of torso B36.9 Past Surgical History: Procedure Laterality Date COLONOSCOPY, DIAGNOSTIC (RECTUM) 05/04/2012 COLONOSCOPY FLEXIBLE PROXIMAL DIAGNOSTIC performed by Ad Salazar MD at ENDOSCOPY [facility] COLONOSCOPY, DIAGNOSTIC (RECTUM) 03/28/2014 COLONOSCOPY FLEXIBLE PROXIMAL DIAGNOSTIC performed by Sylvester Ballesteros MD at ENDOSCOPY [facility] DENTAL SURGERY PROCEDURE NEC 2015 MISCELLANEOUS ORDER ([facility] ONLY) 2010 subdural hematoma requiring surgical intervention REMOVAL OF OVARIAN CYST(S) 30 years ago as of 03/25/12 Social History Socioeconomic History Marital status: Single Spouse name: Not on file Number of children: 0 Years of education: Not on file Highest education level: Not on file Occupational History Occupation: retired Occupation: [employer] Tobacco Use Smoking status: Former Years: 10.00 Types: Cigarettes Quit date: 03/25/1975 Years since quittin.3 Smokeless tobacco: Never Tobacco comments: No passive smoke exposures Vaping Use Vaping Use: Never used Substance and Sexual Activity Alcohol use: Yes Alcohol/week: 5.8 standard drinks Types: 7 5 oz of wine per week Comment: 1 glass of wine nightly Drug use: No Sexual activity: Not Currently Other Topics Concern Service No Blood Transfusions No Caffeine Concern Yes Comment: 1 cup coffee/day Occupational Exposure No Hobby Hazards No Sleep Concern Yes Comment: Insomnia Stress Concern Yes Comment: MS Weight Concern No Special Diet No Back Care No Exercise Yes Comment: Increasing Bike Helmet No Comment: n/a Seat Belt Yes Self-Exams Yes Social History Narrative Not on file Social Determinants of Health Financial Resource Strain: Not on file Food Insecurity: Not on file Transportation Needs: Not on file Physical Activity: Not on file Stress: Not on file Social Connections: Not on file Intimate Partner Violence: Not on file Housing Stability: Not on file Family History Problem Relation Age of Onset Neurological Disorder Mother Faulk's Disease Heart Disorder Father Prostate cancer Brother treated Allergies Brother Allergic eye symptoms Current Outpatient Medications Medication Sig Dispense Refill Cyanocobalamin (B-12) 1000 MCG TABS Take 1 Tab by mouth daily. Systane 0.4-0.3 % Ophthalmic Solution (Polyethyl Glycol-Propyl Glycol) Instill 1 Drop into both eyes 2 times a day. For dry eyes 10 mL hydrocortisone 2.5%/ white petrolatum 85%:15% TOP CREA Apply topically to affected area 2 times a day. Apply to itchy red rash on eyelids as needed 125 g 5 Alendronate Sodium 70 MG Oral Tablet (Fosamax) take 1 tablet by mouth ONCE A WEEK WITH 8OZ OF WATER30 MINUTES BEFORE THE FIRST MEAL OF THE DAY. REMAIN UPRIGHT FOR 30 MINUTES AFTER TAKING THE TABLET.12 Tablet 1 Folic Acid 1 MG Oral Tablet Take 1 Tablet by mouth in the morning. 30 Tablet 11 Clobetasol Propionate 0.05 % External Ointment (Temovate) Apply topically to affected area 2 times a day. Apply dime sized amount to groin twice a day for 2 weeks, once a day for 2 weeks, then stop use 30 g 0 Clindamycin Phosphate 2 % Vaginal Cream (Cleocin) Administer 1 Applicator into the vagina at bedtime. for 5 days. 40 g 0 Desvenlafaxine Succinate ER 50 MG Oral Tablet Extended Release 24 Hour (Pristiq) Take 1 Tablet by mouth in the morning. In the morning.. 90 Tablet 3 amLODIPine Besylate 2.5 MG Oral Tablet (Norvasc) Take 1 Tablet by mouth in the morning. 90 Tablet 3 No current facility-administered medications for this visit. Review of patient's allergies indicates: Allergen Reactions Ampicillin Rash Ceftin [Cefuroxime] Rash Ciprofloxacin Flagyl [Metronidazole] Losartan Hyperkalemia Penicillins Rash Sulfa Antibiotics Rash Tetracycline rash Trazodone Leg inability to move Results for orders placed or performed in visit on 02/17/23 CBC Result Value Ref Range WBC 7.13 4.00 - 10.80 K/uL RBC 3.39 3.85 - 5.15 M/uL HGB 12.3 12.0 - 15.3 g/dL HCT 37.1 36.0 - 45.2 % MCV 109.4 81.5 - 97.5 fL MCH 36.3 27.0 - 34.0 pg MCHC 33.2 32.0 - 36.0 g/dL RDW 11.9 11.5 - 15.5 % PLT 413 (H) 140 - 400 K/uL MPV 10.6 6.6 - 11.1 fL Results for orders placed or performed in visit on 02/17/23 BASIC METABOLIC PANEL Result Value Ref Range BUN 20 6 - 20 mg/dL Creatinine 1.0 0.5 - 1.0 mg/dL Estimated Glomerular Filtration Rate 57 (L) >=60 mL/min Sodium 140 135 - 146 mmol/L Potassium 4.3 3.5 - 5.1 mmol/L Chloride 104 98 - 107 mmol/L CO2 23 22 - 32 mmol/L Anion Gap 13 7 - 15 mmol/L Glucose 93 70 - 120 mg/dL Calcium 9.7 8.4 - 10.2 mg/dL Results for orders placed or performed in visit on 07/22/22 LIPID PANEL WITH DIRECT LDL IF TG IS HIGH Result Value Ref Range Triglycerides 85 <=174 mg/dL Cholesterol 257 (H) <200 mg/dL HDL Cholesterol 147 >49 mg/dL Non-HDL Cholesterol 110 <=159 mg/dL LDL Cholesterol 93 <=129 mg/dL No results found for: HEMOGLOBIN A1C Lab Results Component Value Date/Time TSH - [facility] 4.08 12/20/2019 03:57 PM TSH - [facility] 3.49 04/21/2016 01:57 PM TSH - [facility] 5.98 (H) 01/23/2016 10:53 AM [facility] SCREEN Date Value Ref Range Status 04/20/2017 NEGATIVE Final 01/23/2016 NEGATIVE Final [facility] Screen Date Value Ref Range Status 12/03/2022 Negative Negative Final Results for orders placed or performed in visit on 12/03/22 VITAMIN B12 Result Value Ref Range Vitamin B12 >2,000 (H) 232 - 1,245 pg/mL Results for orders placed or performed in visit on 12/20/19 FOLIC ACID Result Value Ref Range Folic Acid 7.1 >4.5 ng/mL No results found for: [id number] No results found for: [id number] No results found for: [id number] 25OH VITAMIN D TOTAL (ng/mL) Date Value 12/20/2019 25 12/14/2019 27 11/02/2019 27 25-Hydroxy Vitamin D (ng/mL) Date Value 12/03/2022 100 07/22/2022 100 07/29/2021 26 Vitamin D Level Interpretation deficient: <20 ng/ml insufficient: 20-30 ng/ml normal: 31-100 ng/ml REVIEW OF SYSTEMS: As above PHYSICAL EXAM: BP 122/76 | Pulse 100 | Temp 36.1 C (96.9 F) (Tympanic) | Resp 16 | Wt 57.2 kg (126 lb 1.6 oz) | BMI 19.75 kg/m | BSA 1.64 m Patient is awake and alert speech and language are normal affect appropriate no carotid bruits pupils are equal round reactive to light optic nerves are unremarkable normal sullivan motility facial symmetry uppers are symmetric lower right iliopsoas is 3+ quad is 4 left is 4-5 reflexes mildly diffusely brisk toes downgoing cnauru-as-vzis is mildly dystaxic gait is paraparetic and mildly unsteady IMPRESSION: This patient has relapsing remitting multiple sclerosis but may have transformed into secondarily progressive disease. That having been said could be age superimposed on demyelinating disease. Most recent imaging did not show any enhancing or new lesions. The patient has been scheduled to see Dr. Delores Edwards twice and will attempt to reschedule to see her opinion regarding whether not there is she would recommend disease modifying therapy such as Ocrevus at this time. Will refer her to urology. Return yearly Madison Duran MD 07/20/2023 4:56 PM * SONALI Bond - 07/20/2023 1:53 PM EDT PRE - ADMINISTRATION DOCUMENTATION Are you experiencing any cold symptoms or fever? No Have you had Guillain-[place] Ple[place] Syndrome (an illness that causes paralysis) within the last 6 weeks? No Have you had the flu shot in the past? YES Have you ever had a reaction to the flu shot? No SONALI Bond, 07/20/2023 1:53 PM Immunization Administration Documentation Time Out Procedure Performed: Yes Patient Identified (Ask Name/Date of ): Yes Does the patient have a fever greater than 101 degrees today? No Patient allergic to latex? No VFC Stock: No Immunization(s) verified: Yes, Immunization Name: Flu, VIS Sheet(s) given: Yes Verified Side and Site: Yes Verified Shot(s) with Parent(s)/Patient: Yes documented in this encounter Nursing Notes * SONALI Bond - 07/20/2023 12:47 PM EDT Chief Complaint Patient presents with Return Neuro Multiple Sclerosis documented in this encounter Plan of Treatment Upcoming Encounters Date Type Specialty Care Team Description 09/01/2023 Office Visit Internal Medicine Carlos Bhagat MD [address] [place] [address] 10/12/2023 Office Visit [facility] [address] [facility] [address] 02/09/2024 Office Visit Urology Son Matthews Jr., MD [address] [facility] [address] [place] [address] 07/21/2024 Office Visit Neurology Madison Duran MD [address] [place], [place] [id number] Scheduled Referrals Name Type Priority Associated Diagnoses Orde r Schedule UROLOGY REFERRAL OP Referral Within 30 da ys (routine) Neurogenic bladder Ordered: 07/20/2023 Health Maintenance Due Date Last Done Comments Zoster Vaccines (2 of 2) 05/01/2021 03/06/2021 Depression Screening 02/15/2022 02/15/2021, 08/28/20 15 DXA Scan 03/11/2023 03/11/2021, 06/2012, 04/12/2012 COVID-19 Vaccine ( season) 2023 07/09/2021, 01/02/2021, 12/05/2020 GFR 02/18/2024 02/17/2023, 06/2023, 12/03/2022, Additional history exists Albumin/Creatinine Ratio 12/03/2025 12/03/2022, 11/2016 DTaP,Tdap,and Td Vaccines (2 - Td or Tdap) 06/10/2029 06/10/2019 Pneumococcal Vaccine: 65+ Years Completed 06/01/2017, 05/09/2016, 08/05/2011 VITAMIN D LEVEL ONCE IN A LIFETIME-USE SMARTSET# [id number] Completed 12/03/2022, 07/22/2022, 07/29/2021, Additional history exists Influenza Vaccine (FLU shot) Completed , 07/26/2022, 06/20/2021, Additional history exists GARDASIL-HPV IMMUNIZATION SERIES Aged Out No longer eligible based on patient's age to complete this topic Hepatitis B Aged Out No longer eligi ble based on patient's age to complete this topic MENINGOCOCCAL (MENACTRA/MENVEO) Aged Out No longer eligible based on patient's age to complete this topic documented as of this encounter Medical Devices Not on filedocumented as of this encounter Visit Diagnoses Diagnosis MS (multiple sclerosis) (HCC)- Primary Multiple sclerosis Neurogenic bladder Neurogenic bladder, NOS Need for prophylactic vaccination and inoculation against influenza documented in this encounter Care Teams Band Sewer Relationship Specialty Start Date End Date Carlos Bhagat MD [address] [place] [address] PCP - General Internal Medicine 06/17/18 documented as of this encounter"
--- OUTSIDE RECORDS SUMMARY | 2023-12-14 23:03 | External Medical Summary | Summary of Care ---
Author Name Unknown Organization [facility] Address [address] [place] [place] [address] Phone [phone] Care Team Providers Care Manager Metal Name Role Phone Carlos Ontiveros MD Primary Care Provider + Reason for Visit * Reason Onset Date Comments Medication Refill 10/17/2023 Encounter Details Date Type Department Care Team (Late st Contact Info) Description 10/17/2023 Refill General Internal Medicine [facility] 200 [facility] [place] [address] Hayley Yarbrough MD 200 [facility] [place] [address] HTN, goal below 140/90 Allergies Active Allergy Reactions Criticality Noted Date Comments Ampicillin 03/25/2012 Rash Cefuroxime Rash 11/02/2019 Ciprofloxacin 06/01/2021 Metronidazole 11/02/2019 Losartan 12/03/2022 Hyperkalemia Penicillins 03/25/2012 Rash Sulfa Antibiotics 03/25/2012 Rash Tetracycline 03/25/2012 rash Trazodone 07/25/2022 Leg inability to move documented as of this encounter (statuses as of 10/19/2023) Medications Medication Sig Dispensed Refills Start Date End Date Status Cyanocobalamin (B-12) 1000 MCG TABSIndications:Ma crocytic anemia Take 1 Tab by mouth daily. 0 02/21/2019 Active Systane 0.4-0.3 % Ophthalmic Solution (Polyethyl Glycol-Propyl Glycol) Instill 1 Drop into both eyes 2 times a day. For dry eyes 10 mL 0 04/03/2021 Active hydrocortisone 2.5%/ white petrolatum 85%:15% TOP CREAIndications:Ot her atopic dermatitis Apply topically to affected area 2 times a day. Apply to itchy red rash on eyelids as needed 125 g 5 04/03/2021 Active Alendronate Sodium 70 MG Oral Tablet (Fosamax)Indicatio ns:High risk for fracture due to osteoporosis by DEXA scan take 1 tablet by mouth ONCE A WEEK WITH 8OZ OF WATER 30 MINUTES BEFORE THE FIRST MEAL OF THE DAY. REMAIN UPRIGHT FOR 30 MINUTES AFTER TAKING THE TABLET. 12 Tablet 1 02/14/2022 Active Folic Acid 1 MG Oral TabletIndications: Folic acid deficiency Take 1 Tablet by mouth in the morning. 30 Tablet 11 02/23/2023 Active Clobetasol Propionate 0.05 % External Ointment (Temovate)Indicati ons:Acute vulvitis Apply topically to affected area 2 [...] MG Oral Tablet Extended Release 24 Hour (Pristiq)Indicatio ns:Depression Take 1 Tablet by mouth in the morning. In the morning.. 90 Tablet 3 04/20/2023 Active predniSONE 20 MG Oral Tablet (Deltasone) 4 each am for 2 d then 3 each am for 4 d then 2 each am for 4 d then 1 each am for 4 d then 1/2 each am for 4 d then dc 36 Tablet 0 08/21/2023 Active amLODIPine Besylate 2.5 MG Oral Tablet (Norvasc)Indicatio ns:HTN, goal below 140/90 Take 1 Tablet by mouth in the morning. 90 Tablet 1 10/19/2023 Active amLODIPine Besylate 2.5 MG Oral Tablet (Norvasc)Indicatio ns:HTN, goal below 140/90 Take 1 Tablet by mouth in the morning. 90 Tablet 3 04/20/2023 4 Discontinue d(Refill) documented as of this encounter (statuses as of 10/19/2023) Active Problems Problem Noted Date Diagnosed Date Fungal rash of torso 12/31/2022 Adverse effect of losartan 12/03/2022 Overview: Hyperkalemia, nathen High risk for fracture due to osteoporosis by DE XA scan 03/12/2021 Fatty liver 02/15/2021 Recurrent major depressive disorder, in partial remission 06/17/2018 B12 deficiency 09/07/2017 Diastolic dysfunction 03/06/2017 Trace mitral regurgitation by prior echocardiogr am 11/21/2015 HTN, goal below 140/90 10/04/2015 History of subdural hemorrhage 05/07/2013 Multiple sclerosis Overview: age 22 H/O Clostridium difficile infection Overview: last episode being 03/09/12 [facility] documented as of this encounter (statuses as of 10/19/2023) Resolved Problems Problem Noted Date Diagnosed Date Resolved Date Chronic kidney disease, stage 3a 03/19/2021 12/03/2022 Overview: Per CKD protocol Hypertensive heart disease w [facility] heart failure 12/13/2018 02/18/2019 Reactive depression 06/17/2018 06/17/20 18 CHARLES-inhibitor cough 05/09/2016 02/19/20 19 Heart failure, diastolic, due to HTN 11/21/2015 03/06/2017 Overview: Grade I by echo Medication monitoring encounter 10/14/2013 02/18/2019 Depression 06/17/2018 documented as of this encounter (statuses as of 10/19/2023) Immunizations Name Administration Dates Next Due COVID-19 mRNA, LNP-s, No Pre serve, 2-Dose Series (Resultly) 01/02/2021,12/05/2020 Pneumococcal Conjugate Vacc, 13 Valent (Prevnar) 05/09/2016 Pneumococcal Polysaccharide PPV23 (Pneumovax) 06/01/2017,08/05/2011 Seasonal Influenza, PF, 6 M & above, IM , (FluLaval or Fluzone) 12/02/2018,09/07/2017 Seasonal Influenza, Quadriva lent Hd (Fluzone [...] ure alcohol) 1 glass of wine nightly AUDIT-C Answer Date Recorded Q1: How often do you have a drink containing alc ohol? 2-3 times a week 04/03/2021 Q2: How many drinks containi ng alcohol do you have on a typical day when you are drinking? Not asked 04/03/2021 Q3: How often do you have si x or more drinks on one occasion? Not asked 04/03/2021 PHQ-2 Answer Date Recorded PHQ Adult Total Score 0 02/15/2021 Hunger Vital Sign Answer Date Recorded Worried About Running Out of Food in the Last Ye ar Never true 10/04/2019 Ran Out of Food in the Last Year Never true 10/04/2019 Sex and Gender Information Value Date Recorded Sex Assigned at Female 02/18/2019 1:40 PM EDT Gender Identity Female 02/18/2019 1:40 PM EDT Sexual Orientation Straight 02/18/2019 1: 40 PM EDT Job Start Date Occupation Industry Not on file Not on file Not on file documented as of this encounter Miscellaneous Notes * Telephone Encounter - Vianca Cox, [facility] - 10/19/2023 12:16 PM ESTSigned Prescriptions: Disp Refills amLODIPine Besylate 2.5 MG Oral Tablet (No*90 Tab*1 Sig: Take 1 Tablet by mouth in the morning.Authorizing Provider: CARLOS ONTIVEROS User: VIANCA COX documented in this encounter Plan of Treatment Upcoming Encounters Date Type Department Care Team (Late st Contact Info) Description 02/09/2024 11:00 AM EDT Office Visit Urology Ty Dozier [address] [place] [address] Son Matthews Jr., MD [address] [place] [address] 07/21/2024 1:00 PM EDT Office Visit Neurology [facility] [address] [place] [address] Madison Duran MD 200 [place] [address] Health Maintenance Due Date Last Done Comments [...] D LEVEL ONCE IN A LIFETIME-USE SMARTSET# [id number] Completed 12/03/2022, 07/22/2022, 07/29/2021, Additional history exists Influenza Vaccine (FLU shot) Completed , 08/07/2022, 07/26/2022, Additional history exists GARDASIL-HPV IMMUNIZATION SERIES Aged [...] as of this encounter Visit Diagnoses Diagnosis HTN, goal below 140/90 Unspecified essential hypertension documented in this encounter Care Teams Manager Metal Relationship Specialty Start Date End Date Carlos Ontiveros MD [address] [place] [address] PCP - General Internal Medicine 06/17/18 documented as of this encounter
--- OUTSIDE RECORDS SUMMARY | 2023-12-14 23:03 | External Medical Summary | Summary of Care ---
Author Name Unknown Organization [facility] Address [address] [facility] [place] [address] Phone [phone] Care Team Providers Care Roustabout Crew Name Role Phone Carlos Ontiveros MD Primary Care Provider + Reason for Visit * Reason Onset Date Comments Medication Refill 10/17/2023 Encounter Details Date Type Department Care Team (Late st Contact Info) Description 10/17/2023 Refill General Internal Medicine [facility] 200 [facility] [place] [id number] Hayley Yarbrough MD 200 [facility] [place] [address] Encounter for long-term (current) use of other medications*; Depression Allergies Active Allergy Reactions Criticality Noted Date [...] 5 days. 40 g 0 04/03/2023 Active predniSONE 20 MG Oral Tablet (Deltasone) 4 each am for 2 d then 3 each am for 4 d then 2 each am for 4 d then 1 each am for 4 d then 1/2 each am for 4 d then dc 36 Tablet 0 08/21/2023 Active Desvenlafaxine Succinate ER 50 MG Oral Tablet Extended Release 24 Hour (Pristiq)Indicatio ns:Depression Take 1 Tablet by mouth in the morning. 90 Tablet 1 10/19/2023 Active amLODIPine Besylate 2.5 MG Oral Tablet (Norvasc)Indicatio ns:HTN, goal below 140/90 Take 1 Tablet by mouth in the morning. 90 Tablet 1 10/19/2023 Active Desvenlafaxine Succinate ER 50 MG Oral Tablet Extended Release 24 Hour (Pristiq)Indicatio ns:Depression Take 1 Tablet by mouth in the morning. In the morning.. 90 Tablet 3 04/20/2023 4 Discontinue d(Refill) [...] difficile infection Overview: last episode being 03/09/12 [facility] documented as of this encounter (statuses as of 10/19/2023) Resolved Problems Problem Noted Date Diagnosed Date Resolved Date Chronic kidney disease, stage 3a 03/19/2021 12/03/2022 Overview: Per CKD protocol Hypertensive heart disease w [facility] heart failure 12/13/2018 02/18/2019 Reactive depression 06/17/2018 [...] encounter Miscellaneous Notes * Telephone Encounter - Chalo Eric [facility] - 10/19/2023 12:59 PM ESTSigned Prescriptions: Disp Refills Desvenlafaxine Succinate ER 50 MG Oral Tab*90 Tab*1 Sig: Take 1Tablet by mouth in the morning.Authorizing Provider: CARLOS ONTIVEROS User: CHALO ERIC * Telephone Encounter - Chalo Eric RPh - 10/19/2023 12:57 PM EST Provided 90 days supply with 1 refill(s) until next routine labs will approximately be drawn. Per refill protocol patient should have Lipid Panel on file within past year. Reviewed AMP report, Care Gaps/Health Maintenance, medications list, and for any routine labs typically ordered for this patient. Lab orders placed. Patient can complete labs with next routine lab work. Thanks, Chalo Eric Rph, Pharm D. Clinical Pharmacist [facility] (Formerly Telepharmacy)/[facility] [phone] 10/19/2023,12:58 PM documented in this encounter Plan of Treatment Upcoming Encounters Date Type Department Care Team (Late st Contact Info) Description 02/09/2024 11:00 AM EDT Office Visit Urology Ty Dozier [address] [place] [address] Son Matthews Jr., MD [address] [place] [address] 07/21/2024 1:00 PM EDT Office Visit Neurology Asael Izaguirre [place] [address] [place] [address] Madison Duran MD [address] [place] [address] Scheduled Orders Name Type Priority Associated Diagnoses Orde r Schedule LIPID PANEL WITH DIRECT LDL IF TG IS HIGH Lab Routine Encounter for long-term (current) use of other medications Expected: 10/19/2023 (Approximate), Expires: 10/19/2024 Health Maintenance Due Date Last Done Comments Zoster Vaccines (2 of 2) 05/01/2021 03/06/2021 Depression Screening 02/15/2022 02/15/2021, 08/28/20 15 DXA Scan 03/11/2023 03/11/2021, 0 06/2012, 04/12/2012 COVID-19 Vaccine ( - 2022- season) 2023 07/09/2021, 01/02/2021, 12/05/2020 GFR 02/18/2024 02/17/2023, 06/2023, 12/03/2022, Additional history exists Albumin/Creatinine Ratio 12/03/2025 12/03/2022, 11/2016 DTaP,Tdap,and Td Vaccines (2 - Td or Tdap) 06/10/2029 06/10/2019 Pneumococcal Vaccine: 65+ Years Completed 06/01/2017, 05/09/2016, 08/05/2011 VITAMIN D LEVEL ONCE IN A LIFETIME-USE SMARTSET# [id number] Completed 12/03/2022, 07/22/2022, 07/29/2021, Additional history exists [...] as of this encounter Visit Diagnoses Diagnosis Encounter for long-term (current) use of other medications- Primary Depression Depressive disorder, not elsewhere classified documented in this encounter Care Teams Roustabout Crew Relationship Specialty Start Date End Date Carlos Ontiveros MD [address] [place], [place] [address] PCP - General Internal Medicine 06/17/18 documented as of this encounter
--- OUTSIDE RECORDS SUMMARY | 2023-12-14 23:03 | External Medical Summary | Summary of Care ---
Author Name Unknown Organization [facility] Address [address] [place] [address] Phone [phone] Care Team Providers Care Skin Tanner Name Role Phone Carlos Bhagat MD Primary Care Provider + Reason for Visit * Reason Onset Date Comments Medication Refill 07/12/2023 Encounter Details Date Type Department Care Team Description 07/12/2023 Refill General Internal Medicine [facility] 200 [facility] [place] [address] Hayley Yarbrough MD 200 [place] [address] Depression; HTN, goal below 140/90 Allergies Active Allergy Reactions Severity Noted Date Comments Ampicillin 03/25/2012 Rash Cefuroxime Rash 11/02/2019 Ciprofloxacin 06/01/2021 Metronidazole 11/02/2019 Losartan 12/03/2022 Hyperkalemia Penicillins 03/25/2012 Rash Sulfa Antibiotics 03/25/2012 Rash Tetracycline 03/25/2012 rash Trazodone 07/25/2022 Leg inability to move documented as of this encounter (statuses as of 07/13/2023) Medications Medication Sig Dispensed Refills Start Date [...] as of this encounter (statuses as of 07/13/2023) Active Problems Problem Noted Date Fungal rash [...] difficile infection Overview: last episode being 03/09/12 [facility] documented as of this encounter (statuses as of 07/13/2023) Resolved Problems Problem Noted Date Resolved Date Chronic kidney disease, stage 3a 03/19/2021 12/03/2022 Overview: Per CKD protocol Hypertensive heart disease without heart failure 12/13/2018 02/18/2019 Reactive depression 06/17/2018 06/17/2018 CHARLES-inhibitor cough 05/09/2016 02/18/2019 Heart failure, diastolic, due to HTN 11/21/2015 03/06/2017 Overview: Grade I by echo Medication monitoring encounter 10/14/2013 02/18/2019 Depression 06/17/2018 documented as of this encounter (statuses as of 07/13/2023) Immunizations Name Administration Dates Next Due COVID-19 mRNA, LNP-s, No Pre serve, 2-Dose Series (Pfizer) 01/02/2021,12/05/2020 Pneumococcal Conjugate Vacc, 13 Valent (Prevnar) 05/09/2016 Pneumococcal Polysaccharide PPV23 (Pneumovax) 06/01/2017,08/05/2011 SEASONAL INFLUENZA, PF, 6 M & Above, IM , (FLULAVAL or FLUZONE) 12/02/2018,09/07/2017 Seasonal Influenza, Quadriva lent Hd (Fluzone Hd) 06/20/2021 Seasonal Influenza, Quadriva lent, No Preserve, IM [...] encounter Miscellaneous Notes * Telephone Encounter - Venkat Crowe RPh - 07/13/2023 3:26 PM EDTRefused Prescriptions: Disp Refills Desvenlafaxine Succinate ER 50 MG Oral Tab*90 Tab*3 Sig: Take 1Tablet by mouth in the morning. In the morning..Refused By: Magy CROWE for Refusal: Too soon amLODIPine Besylate 2.5 MG Oral Tablet (No*90 Tab*3 Sig: Take 1 Tablet by mouth in the morning.Refused By: Magy CROWE for Refusal: Too soon documented in this encounter Plan of Treatment Upcoming Encounters Date Type Specialty Care Team Description 07/20/2023 Office Visit Neurology Madison Duran MD [address] [place] [address], [place] [address] 09/01/2023 Office Visit Internal Medicine Carlos Bhagat MD [address] [facility] [place] [address] Health Maintenance Due Date Last Done Comments Zoster Vaccines (2 of 2) 05/01/2021 03/06/2021 Depression Screening 02/15/2022 02/15/2021, 08/28/20 15 DXA Scan 03/11/2023 03/11/2021, 06/2012, 04/12/2012 COVID-19 Vaccine ( season) 2023 07/09/2021, 01/02/2021, 12/05/2020 Influenza Vaccine (FLU shot) (#1) 2023 07/26/2022, 06/20/2021, 08/14/2019, Additional history exists GFR 02/18/2024 02/17/2023, 06/2023, 12/03/2022, Additional history exists Albumin/Creatinine Ratio 12/03/2025 12/03/2022, 11/2016 DTaP,Tdap,and Td Vaccines (2 - Td or Tdap) 06/10/2029 06/10/2019 Pneumococcal Vaccine: 65+ Years Completed 06/01/2017, 05/09/2016, 08/05/2011 VITAMIN D LEVEL ONCE IN A LIFETIME-USE SMARTSET# [id number] Completed 12/03/2022, 07/22/2022, 07/29/2021, Additional history exists GARDASIL-HPV IMMUNIZATION SERIES Aged [...] as of this encounter Visit Diagnoses Diagnosis Depression Depressive disorder, not elsewhere classified HTN, goal below 140/90 Unspecified essential hypertension documented in this encounter Care Teams Skin Tanner Relationship Specialty Start Date End Date Carlos Bhagat MD [address] [place] [address] PCP - General Internal Medicine 06/17/18 documented as of this encounter
[2023-12-15] MEDS: MELATONIN 3 MG TAB PO PRN (01:26)
[2023-12-15] MEDS: NYSTATIN CR 15 GM TUBE EXT SCH (01:28)
[2023-12-15 08:18] LABS: Hematocrit (blood only) 35.6 % (37.0-47.0); Hemoglobin 12.1 g/dl (12.0-16.0); Mean Corpuscular Hemoglobin 34.7 pg (25.0-34.0); Mean Platelet Volume 9.8 fL (9.4-12.4); Platelet Count 264 K/uL (130-400); RDW Coefficient of Variation 13.1 % (11.5-14.5); RDW Standard Deviation 48.7 fL (36.4-46.3); Red Blood Count 3.49 M/uL (4.20-5.40); White Blood Count 6.84 K/ul (4.8-10.8)
[2023-12-15 08:41] LABS: BUN Creatinine Ratio 21.9 (10-20); Calcium 9.3 mg/dl (8.6-10.3); Creatinine Clr Calc Pharmacy 66.2 ml/min; Est GFR (African American) 99.8 ml/min; Est GFR (Non-African American) 86.1 ml/min; Potassium 3.8 mmol/L (3.5-5.1)
[2023-12-15] MEDS: POLYETHYLENE (MIRALAX) 17 GM PACK PO SCH (09:04)
[2023-12-15] MEDS: CYANOCOBALAMIN (B-12) 500 MCG TABLET PO SCH (09:09)
[2023-12-15] MEDS: bisacodyL 5 MG TABEC PO SCH (09:10)
[2023-12-15] MEDS: LACTATED RINGER'S 1,000 ML IV SCH (09:10)
[2023-12-15] MEDS: FOLIC ACID 400 MCG TAB PO SCH (09:10)
--- NOTE | 2023-12-15 11:24 | Orthopedic Consultation ---
Date of Service December 15, 2023 Assessment & Plan (1) Fracture of left inferior pubic ramus: (2) Left acetabular fracture: Plan I had a long and detailed discussion today with the patient about her pelvic injury involving the left lower extremity in great detail with ample amount of t abrahan for the patient to ask any questions or state any concerns. All questions and concerns were answered to the patient's satisfaction. At this point, we can manage this nonoperatively. She will be protective weightbearing to the left lower extremity. If she can be flatfoot weightbearing this would be best but she can also be weightbearing as tolerated if it is easier for her due to her MS diagnosis. She should work with physical therapy while inpatient to work on this. She may also benefit from a short stay at a rehabilitation unit upon discharge. She can follow-up with [facility] orthopedics in 2 weeks to continue monitoring her fractures. Please reach out by [facility] text or to [facility] orthopedics if patient situation is to change. History of Present Illness Reason for Consultation: . Fracture of left inferior pubic rami and acetabular fracture Requesting Physician: . Attending Physician: Halle Brewster MD . Floresita is a 78-year-old female with a medical history of multiple sclerosis who presented to the emergency department yesterday after a fall she sustained 2 days ago. She notes that she lost her balance in her home where she fell and struck her left side of her body on the ground. She notes that she had to call EMS for a lift assist. She did not immediately go to the emergency department. She notes that throughout the day, she was having trouble ambulating. She was then taken to [facility] emergency department where scans were completed and found to have a comminuted nondisplaced fracture of the anterior wall of the left acetabulum as well as a left inferior pubic rami fracture in the medial left pubic bone. Today, she notes that she is doing quite well with good pain control. She notes that her discomfort is positional in nature and it depends on what she is doing at this point and elicits pain. She notes that deep flexion at this point with some internal and external rotation causes slight discomfort. She denies any other concerns today. Allergies Allergy/AdvReac Type Severity Reaction Status Date / Time ampicillin Allergy Intermediate Hives Verified 12/14/23 17:20 ciprofloxacin [From Cipro] Allergy Intermediate Hives Verified 12/14/23 17:20 metronidazole [From Flagyl] Allergy Intermediate Rash Verified 12/14/23 17:20 Penicillins Allergy Intermediate Hives Verified 12/14/23 17:20 Sulfa (Sulfonamide Allergy Intermediate Hives Verified 12/14/23 17:20 Antibiotics) tetracycline Allergy Intermediate Hives Verified 12/14/23 17:20 Home Medications Medication Instructions Recorded Confirmed Type desvenlafaxine succinate 50 mg 50 mg PO QAM 06/10/19 12/14/23 History tablet,extended release 24 hr (Pristiq) cyanocobalamin (vitamin B-12) 1,000 mcg PO DAILY 06/15/19 12/14/23 History 1,000 mcg capsule alendronate 70 mg tablet 70 mg PO WK 06/20/21 12/14/23 History amlodipine 2.5 mg tablet 2.5 mg PO QAM 02/06/23 12/14/23 History folic acid 400 mcg tablet 0.4 mg PO DAILY 12/14/23 12/14/23 History Past Med/Surg History Medical History Multiple sclerosis Subdural hematoma "s/p surgical intervention " B12 deficiency Depression HTN (hypertension) Generalized weakness Surgical History S/P removal of ovarian cyst History of dental surgery H/O colonoscopy Family History Other Cancer Heart disease Neurological disorder Social History Smoking Status: Never smoker Tobacco Type: Cigarettes Second Hand Exposure: No; Do You Dip or Chew Tobacco: No; Hx Alcohol Use: Yes Alcohol type: wine Hx Substance Use: No Preferred Language: Portuguese Communication Ability: Effective Sewing Inspector Required: No Beliefs That Will Affect Care: None marital status: Single Current Living Situation: Alone current occupational status: retired Other Information That Helps Us Care for You: No Feels Safe at Home: Yes Safety Concerns: Feels Safe At This Time Assistive Devices: Cane, Walker and Other Review of Systems All systems reviewed & are unremarkable except as noted in HPI & below. Physical Exam .General: awake, alert, no apparent distress, + tremulousness in facial muscles. Head: Normocephalic, atraumatic ENT: PERRL, EOMI, no pharyngeal exudate, mucous membranes moist Chest: Clear to auscultation, on room air, no adventitious breath sounds Cardiac: Regular rate and rhythm, no murmur, no JVD, normal peripheral pulses, good capillary refill Abdominal: NABS x 4 quadrants, soft, nondistended, nontender to palpation, no rebound or guarding Psych: Normal mood and affect Neuro: AAO x 3, strength intact bilaterally and rated 4/5, no motor deficits, speech is clear, no peripheral sensory deficits Musculoskeletal On physical examination of the left lower extremity, she does have some atrophy to the lower extremities secondary to her diagnosis of multiple sclerosis. She has no erythema, ecchymosis, edema, or or other obvious deformities. No tenderness to palpation diffusely throughout the left hip/lower extremity. She does have slight discomfort with range of motion to the left hip. She does have slight discomfort with logroll. 4/5 strength against resistance diffusely throughout the left lower extremity. Calf soft nontender to palpation. +2 DP and PT pulses. Less than 2-second capillary refill. Normal sensation. Neurovascular intact. Results & Data Results & Data Laboratory Results . Diagnostic Findings Hip/Pelvis X-Ray 12/14/23 13:25 XR hip LT 2V w pelvis HISTORY: 78 years-old Female L lateral hip acute pelvic pain status post fall COMPARISON: CT abdomen and pelvis 03/09/2012 TECHNIQUE: AP view the pelvis with 2 views of the left hip FINDINGS: [id number] osteoarthritis of the hips. Avascular necrosis of the femoral heads again noted without evidence of articular collapse. Soft tissue calcifications within the gluteal tissues. No acute fracture or dislocation. IMPRESSION: 1. No acute fracture or dislocation. 2. 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 ACT 112: Negative or not required by law. The above report was generated using voice recognition software. It may contain grammatical, syntax or spelling errors. Electronically signed by: Venkat Oliver M.D. 12/14/2023 3:[address] 12/14/23 14:51 CT hip LT wo con CLINICAL HISTORY: L hip pain, can't bear wt, xr neg COMPARISON STUDY: Left hip radiographs performed earlier today. CT of the abdomen and pelvis March 09, 2012. TECHNIQUE: Axial images of the left hip were obtained without IV contrast. S agittal and coronal reconstructions were viewed. Automated exposure control was utilized for the study. A dose lowering technique was utilized adhering to the principles of ALARA. FINDINGS: No proximal left femoral fracture is noted. There is avascular necrosis of the left femoral head without collapse. An acute minimally displaced fracture of the visualized inferior left sacroiliac is present. There is an acute displaced fracture of the left inferior pubic ramus as well as the medial left pubic bone. In addition, there is an acute comminuted nondisplaced fracture of the anterior wall of the left acetabulum with intra-articular extension. No intra-articular bone fragment are present. IMPRESSION: 1. No acute proximal left femoral fracture. Avascular necrosis of the left femoral head. 2. Acute comminuted nondisplaced fracture of the anterior wall of the left acetabulum with intra-articular extension. No intra-articular bone fragments. 3. Acute nondisplaced fractures of the left inferior pubic ramus and the medial left pubic bone. 4. Partially visualized acute minimally displaced left inferior sacral ala fracture. ACT 112: Negative or not required by law. Electronically signed by: Abdifatah Rod M.D. 12/14/2023 4:19 PM Venous Doppler Study 12/14/23 17:06 BILATERAL LOWER EXTREMITY VENOUS DOPPLER CLINICAL HISTORY: Eval edema, R> L COMPARISON STUDY: Right lower extremity venous Doppler ultrasound June 20, 2021. TECHNIQUE: Sonography of the deep venous system of the bilateral lower extremities was performed. Compression and augmentation were evaluated. FINDINGS: The bilateral common femoral, superficial femoral and popliteal veins were compressible. Augmentation was normal. Flow was shown within the deep calf vessels. IMPRESSION: No evidence of deep venous thrombus within the bilateral lower extremities. ACT 112: Negative or not required by law. Electronically signed by: Abdifatah Rod M.D. 12/14/2023 6:32 PM PG Care Time/CCT Total # of Minutes Spent Total Time Spent with Patient: Total time spent is greater than 50% in coordination of care (as documented) at patient's floor/unit and/or counseling patient: Supervising Physician Co-Signing Physician Notes ATTENDING NOTE: Venkat Carmona PA-C assisted in caring for this patient. I agree with his note. The history, physical exam and imaging were all reviewed. I agree with the assessment and the plan as written. She will be followed in early course here in the hospital. Please contact us with any questions. Coding Level of Care Code 38748 IN/OBS CONSULT LVL 3,45M Diagnoses Fracture of left inferior pubic ramus S32.592A Left acetabular fracture S32.402A Additional Codes Fx Pelvis - Acetabulum (hip socket): Acetabulum (hip socket) ([id number])
--- NOTE | 2023-12-15 13:37 | Hospitalist Progress Note ---
Date of Service December 15, 2023 Assessment & Plan (1) Left acetabular fracture: (2) Fracture of left inferior pubic ramus: (3) Multiple sclerosis: (4) HTN (hypertension): (5) B12 deficiency: Plan: Plan This is a 78-year-old female with significant past medical history of HTN, diastolic dysfunction, trace mitral regurgitation, B12 deficiency, multiple sclerosis, depression, history of CHF, history of SDH who presented to ED secondary to fall. Due to history of MS she states she tends to have frequent falls. ---Admitting CT: 1. No acute proximal left femoral fracture. Avascular necrosis of the left femoral head. 2. Acute comminuted nondisplaced fracture of the anterior wall of the left acetabulum with intra-articular extension. No intra- articular bone fragments. 3. Acute nondisplaced fractures of the left inferior pubic ramus and the medial left pubic bone. 4. Partially visualized acute minimally displaced left inferior sacral ala fracture. Fracture of the left inferior pubic ramus Left acetabular fracture Admit to medical Orthopedics consulted who thought this can be managed nonoperatively, protected weightbearing to LLE, flatfoot weightbearing preferred but can be weightbearing as tolerated if easier for MS PT/OT consulted May benefit from short rehab stay depending on PT She will require orthopedic follow-up in 2 weeks for repeat imaging and monitoring of fractures Her vitamin D level is normal Venous Doppler: negative Multiple sclerosis She states that she has been having multiple falls Currently not undergoing any treatment or any relapse Follows with [facility] neurology HTN chronic, stable continue amlodipine Elevated anion gap may be in setting of dehydration, encourage fluid intake it is reported she drinks 1-2 glasses of wine nightly Alcohol use encourage to reduce or limit drinks 1-2 glasses of wine monitor Depression mood stable continue pristiq History of C. difficile cautious with antibiotic use B12 deficiency Continue supplementation DVT ppx: SQ Lovenox Pt was seen and examined in collaboration with Dr. Brewster, please see addendum A total of 50 minutes was spent coordinating, documenting, and providing care for this patient excluding time spent in the performance of separately billed services. This included personally viewing all current laboratories and imaging studies, medication reconciliation, outpatient chart review, and discussion with specialists. Admission and Anticipated Discharge Date Admission Date: December 14, 2023 Supervising Physician Co-Signing Physician Notes Pt was seen and examined by myself, Halle Brewster MD on the day of service. Care was coordinated with Clari Soliz PA-C. 78yoM with MS and frequent falls presenting with L acetabular and pubic ramus fracture. On exam pleasant, difficulty with movements in the bed. Ortho consulted-non surgical management Pain control Noted ketones in urine, IV fluids Daily alcohol use, consider AWSS protocol. Otherwise as above. I spent a total [id number] coordinating, documenting, and providing care for this patient excluding time spent in the performance of separately billed services Subjective This is a 78-year-old female who presents to ED secondary to fall. She was diagnosed with left acetabular fracture and left inferior pubic rami fracture. She was seen and evaluated in 383. She states depending on position she does not have any pain. She is sitting in her bed reading a book. She denies fever, chills, sweats, lightheadedness, dizziness, chest pain, shortness of breath, nausea, vomiting, abdominal pain. She does have Lund catheter in place. Review of Systems Review of Systems: All systems reviewed & are unremarkable except as noted in HPI & below Physical Exam Physical Exam: Gen: WD/WN, female, NAD, A&O x3 HEENT: Normocephalic, atraumatic, conjunctivae moist, sclerae anicteric, mucous membranes moist. Lung: Clear to Auscultation bilaterally, no wheezes/rales/rhonchi Heart: Regular rate, regular rhythm, no murmurs, rubs, or gallops Abdomen: Soft, NT, ND +BS x 4 Extremities: No edema Skin: Warm, no rash, negative turgor. Results & Data Results & Data Vital Signs (Past 12 Hours) Vital Signs Temp Pulse Pulse Resp BP Pulse Ox O2 Del Method 12/15/23 07:05 36.8 C 102 H 16 117/72 93 Room Air 12/15/23 03:39 103 H 115/79 Laboratory Results Short CBC 12/14/23 12/15/23 Range/Units 13:37 07:42 WBC 7.05 6.84 (4.8-10.8) K/ul Hgb 14.2 12.1 (12.0-16.0) g/dl Hct 42.6 35.6 L (37.0-47.0) % Plt Count 305 264 (130-400) K/uL BMP 12/14/23 12/15/23 13:37 07:42 Sodium 136 135 L Potassium 4.1 3.8 Chloride 96 L 98 Carbon Dioxide 25 22 BUN 12 14 Creatinine 0.71 0.64 Glucose 75 77 Calcium 10.2 9.3 Cardiac Enzymes 12/14/23 Range/Units 13:37 Total Creatine Kinase 143 (26-192) U/L Liver Function 12/14/23 Range/Units 13:37 Total Bilirubin 0.8 (0.2-1.0) mg/dl AST 50 H (13-39) U/L ALT 34 (7-52) U/L Alkaline Phosphatase 106 H (34-104) U/L Albumin 5.0 (3.4-5.0) gm/dl Diagnostic Findings Chest X-Ray 12/14/23 13:25 XR chest 1V portable CLINICAL HISTORY: fall COMPARISON STUDY: Chest radiograph November 06, 2016. FINDINGS: Lung volumes are normal. No pneumothorax. There is slight blunting of the left costophrenic angle with mild left basilar opacity. Mild cardiomegaly. Mediastinal contours are normal. There is no evidence for pulmonary edema. IMPRESSION: 1. No pneumothorax. 2. Minimal left basilar opacity. Possible trace left pleural effusion. ACT 112: Negative or not required by law. Electronically signed by: Abdifatah Rod M.D. 12/14/2023 2:28 PM Hip/Pelvis X-Ray 12/14/23 13:25 XR hip LT 2V w pelvis HISTORY: 78 years-old Female L lateral hip acute pelvic pain status post fall COMPARISON: CT abdomen and pelvis 03/09/2012 TECHNIQUE: AP view the pelvis with 2 views of the left hip FINDINGS: [id number] osteoarthritis of the hips. Avascular necrosis of the femoral heads again noted without evidence of articular collapse. Soft tissue calcifications within the gluteal tissues. No acute fracture or dislocation. IMPRESSION: 1. No acute fracture or dislocation. 2. 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 ACT 112: Negative or not required by law. The above report was generated using voice recognition software. It may contain grammatical, syntax or spelling errors. Electronically signed by: Venkat Oliver M.D. 12/14/2023 3:[address] 12/14/23 14:51 CT cervical spine wo con CLINICAL HISTORY: 78 years-old Female with unwitnessed fall. Acute neck injury status post fall COMPARISON: Head CT of same day TECHNIQUE: Multiple axial CT images of the cervical spine were obtained without contrast. A dose lowering technique was utilized adhering to the principles of ALARA. FINDINGS: Demineralized. The bones. Multilevel degenerative changes including moderate disc space narrowing at C6-C7. Grade 1 anterolisthesis C4 on C5, likely secondary to chronic facet arthrosis. There is severe multilevel facet arthropathy. The cervical soft tissues appear unremarkable. The visualized lung apices appear clear. IMPRESSION: No acute cervical spine fracture or subluxation. ACT 112: Negative or not required by law. The above report was generated using voice recognition software. It may contain grammatical, syntax or spelling errors. Electronically signed by: Venkat Oliver M.D. 12/14/2023 4:[address] 12/14/23 14:51 CT OF THE HEAD WITHOUT CONTRAST CLINICAL HISTORY: unwitnessed fall COMPARISON STUDY: Head CT February 06, 2023. TECHNIQUE: Helical axial images of the head were obtained without IV contrast. Automated exposure control was utilized for the study. A dose lowering technique was utilized adhering to the principles of ALARA. FINDINGS: No acute intracranial hemorrhage, midline shift or mass effect is present. The ventricular system is stable. Basal cisterns are patent. There are no extra axial collections. Left sided juan holes are noted. There is a small left posterior scalp contusion. There is no calvarial fracture. IMPRESSION: 1. No acute intracranial findings. 2. Small left posterior scalp contusion. No calvarial fracture. ACT 112: Negative or not required by law. Electronically signed by: Abdifatah Rod M.D. 12/14/2023 4:[address] 12/14/23 14:51 CT hip LT wo con CLINICAL HISTORY: L hip pain, can't bear wt, xr neg COMPARISON STUDY: Left hip radiographs performed earlier today. CT of the abdomen and pelvis March 09, 2012. TECHNIQUE: Axial images of the left hip were obtained without IV contrast. Sagittal and coronal reconstructions were viewed. Automated exposure control was utilized for the study. A dose lowering technique was utilized adhering to the principles of ALARA. FINDINGS: No proximal left femoral fracture is noted. There is avascular necrosis of the left femoral head without collapse. An acute minimally displaced fracture of the visualized inferior left sacroiliac is present. There is an acute displaced fracture of the left inferior pubic ramus as well as the medial left pubic bone. In addition, there is an acute comminuted nondisplaced fracture of the anterior wall of the left acetabulum with intra-articular extension. No intra-articular bone fragment are present. IMPRESSION: 1. No acute proximal left femoral fracture. Avascular necrosis of the left femoral head. 2. Acute comminuted nondisplaced fracture of the anterior wall of the left acetabulum with intra-articular extension. No intra-articular bone fragments. 3. Acute nondisplaced fractures of the left inferior pubic ramus and the medial left pubic bone. 4. Partially visualized acute minimally displaced left inferior sacral ala fracture. ACT 112: Negative or not required by law. Electronically signed by: Abdifatah Rod M.D. 12/14/2023 4:19 PM Venous Doppler Study 12/14/23 17:06 BILATERAL LOWER EXTREMITY VENOUS DOPPLER CLINICAL HISTORY: Eval edema, R> L COMPARISON STUDY: Right lower extremity venous Doppler ultrasound June 20, 2021. TECHNIQUE: Sonography of the deep venous system of the bilateral lower extremities was performed. Compression and augmentation were evaluated. FINDINGS: The bilateral common femoral, superficial femoral and popliteal veins were compressible. Augmentation was normal. Flow was shown within the deep calf vessels. IMPRESSION: No evidence of deep venous thrombus within the bilateral lower extremities. ACT 112: Negative or not required by law. Electronically signed by: Abdifatah Rod M.D. 12/14/2023 6:32 PM Medications Administered Current Inpatient Medications Acetaminophen (Acetaminophen 500 Mg Tab) 1,000 mg PO Q8 SONIA Stop: 01/13/24 19:14 Last Admin: 12/15/23 05:34 Dose: 1,000 mg Alendronate Sodium (Alendronate Sodium 70 Mg Tab) 70 mg PO We@0900 SONIA Stop: 01/15/24 08:59 Amlodipine Besylate (Amlodipine Besylate 5 Mg Tab) 2.5 mg PO QAM SONIA Stop: 01/13/24 19:59 Last Admin: 12/15/23 09:04 Dose: Not Given Bisacodyl (Bisacodyl 5 Mg Tabec) 10 mg PO DAILY [facility]ONIA Stop: 01/14/24 08:59 Last Admin: 12/15/23 09:10 Dose: 10 mg Cyanocobalamin (Cyanocobalamin (B-12) 500 Mcg Tablet) 1,000 mcg PO DAILY [facility] Stop: 01/14/24 08:59 Last Admin: 12/15/23 09:09 Dose: 1,000 mcg Folic Acid (Folic Acid 400 Mcg Tab) 400 mcg PO DAILY [facility] Stop: 01/14/24 08:59 Last Admin: 12/15/23 09:10 Dose: 400 mcg Hydroxyzine HCl (Hydroxyzine Hcl 25 Mg Tab) 25 mg PO HS PRN PRN Reason: Anxiety Stop: 01/13/24 20:38 Last Admin: 12/14/23 21:29 Dose: 25 mg Melatonin (Melatonin 3 Mg Tab) 3 mg PO HS PRN PRN Reason: Sleep Stop: 01/14/24 00:49 Last Admin: 12/15/23 01:26 Dose: 3 mg Miscellaneous (Order Awaiting Action: Desvenlafaxine) 1 each N/A QS [facility] Stop: 01/14/24 20:59 Morphine Sulfate (Morphine Sulfate 2 Mg/Ml Carp) 2 mg IV Q4H PRN PRN Reason: Breakthrough Pain Stop: 12/28/23 19:14 Nystatin (Nystatin Cr 15 Gm Tube) 1 appln EXT TuFr@0900 [facility] Stop: 01/14/24 00:59 Last Admin: 12/15/23 01:28 Dose: Not Given Ondansetron HCl (Ondansetron Inj 2 Mg/Ml 2 Ml Vial) 4 mg IV Q4H PRN PRN Reason: Nausea And Vomiting Stop: 01/13/24 19:14 Polyethylene Glycol (Polyethylene (Miralax) 17 Gm Pack) 17 gm PO DAILY [facility] Stop: 01/14/24 08:59 Last Admin: 12/15/23 09:04 Dose: Not Given Tramadol HCl (Tramadol Hcl 50 Mg Tablet) 50 mg PO Q4H PRN PRN Reason: Moderate Pain (Scale 4, 5, 6) Stop: 01/13/24 19:14 Last Admin: 12/14/23 21:29 Dose: 50 mg
[2023-12-15 18:42] LABS: Appearance Urine Clear (Clear); Bacteria Urine Automated Negative (Negative); Bilirubin Urine Negative (Negative); Blood Urine Negative (Negative); Color Urine Dark Yellow; Glucose Urine UA Negative (Negative); Ketones Urine 2+ (Negative); Leukocyte Esterase Urine Trace (Negative); Nitrite Urine Negative (Negative); Protein Urine Negative (Negative); Specific Gravity Urine 1.029 (1.000-1.030); Urobilinogen Urine Negative (Negative); pH Urine 5.5 (4.5-7.5)
[2023-12-15] MEDS: ENOXAPARIN INJ 40 MG/0.4 ML SYR SQ SCH (19:50)
[2023-12-16 08:49] LABS: Basophils # (auto) 0.07 K/uL (0.00-0.20); Basophils % (auto) 0.9 %; Eosinophils # (auto) 0.31 K/uL (0.00-0.50); Hematocrit (blood only) 38.4 % (37.0-47.0); Hemoglobin 12.5 g/dl (12.0-16.0); Immature Granulocytes # (auto) 0.05 K/uL (0.01-0.20); Immature Granulocytes % (auto) 0.6 %; Lymphocytes # (auto) 1.48 K/uL (1.20-3.40); Mean Corpuscular Hemoglobin 33.9 pg (25.0-34.0); Mean Corpuscular Hgb Conc 32.6 g/dL (32.0-36.0); Mean Corpuscular Volume 104.1 fL (80.0-100.0); Mean Platelet Volume 10.3 fL (9.4-12.4); Monocytes # (auto) 1.03 K/uL (0.11-0.59); Monocytes % (auto) 13.2 %; Neutrophils # (auto) 4.86 K/uL (1.40-6.50); Neutrophils % (auto) 62.3 %; Platelet Count 271 K/uL (130-400); RDW Coefficient of Variation 13.1 % (11.5-14.5); RDW Standard Deviation 49.1 fL (36.4-46.3); Red Blood Count 3.69 M/uL (4.20-5.40)
[2023-12-16] MEDS: ALENDRONATE SODIUM 70 MG TAB PO SCH (08:55)
[2023-12-16 09:03] LABS: Albumin Globulin Ratio 1.4 (0.9-2); Albumin Level 3.8 gm/dl (3.4-5.0); BUN Creatinine Ratio 17.6 (10-20); Bilirubin,Total 0.6 mg/dl (0.2-1.0); Calcium 9.3 mg/dl (8.6-10.3); Creatinine Clr Calc Pharmacy 57.3 ml/min; Est GFR (African American) 90.6 ml/min; Est GFR (Non-African American) 78.1 ml/min; Globulin 2.7 gm/dl (2.5-4.0); Potassium 3.5 mmol/L (3.5-5.1); Total Protein 6.5 gm/dl (6.0-8.3)
[2023-12-16] MEDS: CLOTRIMAZOLE 1% CR 15 GM TUBE EXT SCH (11:05)
[2023-12-16] MEDS: oxyCODONE HCL IR 5 MG TAB (IMMEDIATE RELEASE) PO PRN (13:23)
--- NOTE | 2023-12-16 15:12 | Hospitalist Progress Note ---
Date of Service December 16, 2023 Assessment & Plan (1) Left acetabular fracture: (2) Fracture of left inferior pubic ramus: (3) Multiple sclerosis: (4) HTN (hypertension): (5) B12 deficiency: Plan: Plan This is a 78-year-old female with significant past medical history of HTN, diastolic dysfunction, trace mitral regurgitation, B12 deficiency, multiple sclerosis, depression, history of CHF, history of SDH who presented to ED secondary to fall. Due to history of MS she states she tends to have frequent falls. ---Admitting CT: 1. No acute proximal left femoral fracture. Avascular necrosis of the left femoral head. 2. Acute comminuted nondisplaced fracture of the anterior wall of the left acetabulum with intra-articular extension. No intra- articular bone fragments. 3. Acute nondisplaced fractures of the left inferior pubic ramus and the medial left pubic bone. 4. Partially visualized acute minimally displaced left inferior sacral ala fracture. Fracture of the left inferior pubic ramus Left acetabular fracture Admit to medical Orthopedics consulted who thought this can be managed nonoperatively, protected weightbearing to LLE, flatfoot weightbearing preferred but can be weightbearing as tolerated if easier for MS PT/OT consulted May benefit from short rehab stay depending on PT She will require orthopedic follow-up in 2 weeks for repeat imaging and monitoring of fractures Her vitamin D level is normal Venous Doppler: negative Pain not controlled, will d/c Tramadol in favor of Oxy IR. She is on bowel regimen Continued scheduled tylenol, add ICE [facility] and plan is for discharge tomorrow Nursing reports foul and green-colored urine coming out of Real catheter, will obtain urinalysis Multiple sclerosis She states that she has been having multiple falls Currently not undergoing any treatment or any relapse Follows with [facility] neurology HTN chronic, stable continue amlodipine Elevated anion gap may be in setting of dehydration, encourage fluid intake it is reported she drinks 1-2 glasses of wine nightly This has since resolved Alcohol use encourage to reduce or limit drinks 1-2 glasses of wine monitor Depression mood stable continue pristiq History of C. difficile cautious with antibiotic use B12 deficiency Continue supplementation DVT ppx: SQ Lovenox FULL CODE PCP: Olayinka Dispo: Pt [facility] accepted [facility] with anticipated discharge tomorrow, 12/17/2023. Nursing reported foul green discharge from Real catheter. Will obtain urinalysis Pt was seen and examined in collaboration with Dr. Oconnell please see addendum A total of 45 minutes was spent coordinating, documenting, and providing care for this patient excluding time spent in the performance of separately billed services. This included personally viewing all current laboratories and imaging studies, medication reconciliation, outpatient chart review, and discussion with specialists. Admission and Anticipated Discharge Date Admission Date: December 14, 2023 Supervising Physician Co-Signing Physician Notes I have seen and discussed the case with the collaborating advanced practitioner. I agree with the above PN. I have reviewed and confirmed the patients medical history, the findings on physical examination, and the patients diagnosis and treatment plan with Heydi CONNER and agree with the information documented. In short, Ms. Chapman is a 78 year old woman with history of MS admitted after sustaining pelvic fracture and left acetabular fracture from mechanical fall. Patient reports feeling overall well Exam with left lower extremity pain with ROM UA 4+ bacteria positive, nitrite positive, LE + Rehab plans. Follow up culture, start CTX Transition to PO RX when able Rest of plan as above I spent a total of 35 minutes coordinating, documenting, and providing care for this patient excluding time spent in the performance of separately billed services. All of the aforementioned completed outside of collaborating with the assigned advanced practitioner for a full treatment plan. I have reviewed the advanced practitioner's documentation, and I agree with, and take responsibility for the plan of care Subjective This is a 78-year-old female who presents to ED secondary to fall. She was diagnosed with left acetabular fracture and left inferior pubic rami fracture. She was seen and evaluated in 383. She states she continues to have a considerable amount of pain to her left leg with movement. She was unable to get to the side of bed due to pain. She also reports a rash under breasts stating that she was using a cream as an outpatient. She denies fever, chills, sweats, lightheadedness, dizziness, chest pain, shortness breath, nausea or vomiting. She is tolerating diet. Review of Systems Review of Systems: All systems reviewed & are unremarkable except as noted in HPI & below Physical Exam Physical Exam: Gen: WD/WN, female, NAD, A&O x3 HEENT: Normocephalic, atraumatic, conjunctivae moist, sclerae anicteric, mucous membranes moist. Lung: Clear to Auscultation bilaterally, no wheezes/rales/rhonchi Heart: Regular rate, regular rhythm, no murmurs, rubs, or gallops Abdomen: Soft, NT, ND +BS x 4 Extremities: No edema Skin: Warm, no rash, negative turgor. real cath draining yellow urine Results & Data Results & Data Vital Signs (Past 12 Hours) Vital Signs Temp Pulse Resp BP Pulse Ox O2 Del Method 12/16/23 14:43 36.9 C 104 H 18 121/86 90 Room Air 12/16/23 08:00 Room Air 12/16/23 07:04 36.8 C 107 H 14 124/84 94 Room Air Laboratory Results Short CBC 12/16/23 Range/Units 07:27 WBC 7.80 (4.8-10.8) K/ul Hgb 12.5 (12.0-16.0) g/dl Hct 38.4 (37.0-47.0) % Plt Count 271 (130-400) K/uL BMP 12/16/23 07:27 Sodium 136 Potassium 3.5 Chloride 101 Carbon Dioxide 24 BUN 13 Creatinine 0.74 Glucose 100 H Calcium 9.3 Liver Function 12/16/23 Range/Units 07:27 Total Bilirubin 0.6 (0.2-1.0) mg/dl AST 25 (13-39) U/L ALT 19 (7-52) U/L Alkaline Phosphatase 72 (34-104) U/L Albumin 3.8 (3.4-5.0) gm/dl Urine 12/15/23 Range/Units 18:02 Urine Color Dark Yellow Urine Appearance Clear (Clear) Urine pH 5.5 (4.5-7.5) Ur Specific [place] 1.029 (1.000-1.030) Urine Protein Negative (Negative) Urine Glucose (UA) Negative (Negative) Medications Administered Current Inpatient Medications Acetaminophen (Acetaminophen 500 Mg Tab) 1,000 mg PO Q8 SONIA Stop: 01/13/24 19:14 Last Admin: 12/16/23 13:23 Dose: 1,000 mg Alendronate Sodium (Alendronate Sodium 70 Mg Tab) 70 mg PO We@0900 SONIA Stop: 01/15/24 08:59 Last Admin: 12/16/23 08:55 Dose: 70 mg Amlodipine Besylate (Amlodipine Besylate 5 Mg Tab) 2.5 mg PO QAM [facility] Stop: 01/13/24 19:59 Last Admin: 12/16/23 08:54 Dose: 2.5 mg Bisacodyl (Bisacodyl 5 Mg Tabec) 10 mg PO DAILY SONIA Stop: 01/14/24 08:59 Last Admin: 12/16/23 09:03 Dose: Not Given Clotrimazole (Clotrimazole 1% Cr 15 Gm Tube) 1 appln EXT BID SONIA Stop: 01/15/24 09:14 Last Admin: 12/16/23 11:05 Dose: 1 appln Cyanocobalamin (Cyanocobalamin (B-12) 500 Mcg Tablet) 1,000 mcg PO DAILY SONIA Stop: 01/14/24 08:59 Last Admin: 12/16/23 08:54 Dose: 1,000 mcg Enoxaparin Sodium (Enoxaparin Inj 40 Mg/0.4 Ml Syr) 40 mg SQ HS [facility] Stop: 01/14/24 20:59 Last Admin: 12/15/23 19:50 Dose: 40 mg Folic Acid (Folic Acid 400 Mcg Tab) 400 mcg PO DAILY SONIA Stop: 01/14/24 08:59 Last Admin: 12/16/23 08:55 Dose: 400 mcg Hydroxyzine HCl (Hydroxyzine Hcl 25 Mg Tab) 25 mg PO HS PRN PRN Reason: Anxiety Stop: 01/13/24 20:38 Last Admin: 12/14/23 21:29 Dose: 25 mg Melatonin (Melatonin 3 Mg Tab) 3 mg PO HS PRN PRN Reason: Sleep Stop: 01/14/24 00:49 Last Admin: 12/15/23 22:37 Dose: 3 mg Miscellaneous (Order Awaiting Action: Desvenlafaxine) 1 each N/A QS [facility] Stop: 01/14/24 20:59 Last Admin: 12/16/23 08:50 Dose: Not Given Morphine Sulfate (Morphine Sulfate 2 Mg/Ml Carp) 2 mg IV Q4H PRN PRN Reason: Breakthrough Pain Stop: 12/28/23 19:14 Nystatin (Nystatin Cr 15 Gm Tube) 1 appln EXT TuFr@0900 [facility] Stop: 01/14/24 00:59 Last Admin: 12/15/23 01:28 Dose: Not Given Ondansetron HCl (Ondansetron Inj 2 Mg/Ml 2 Ml Vial) 4 mg IV Q4H PRN PRN Reason: Nausea And Vomiting Stop: 01/13/24 19:14 Oxycodone HCl (Oxycodone Hcl Ir 5 Mg Tab (Immediate Release)) 5 mg PO Q4H PRN PRN Reason: Mod-Sev Pain (Scale 4-10) Stop: 12/30/23 09:01 Last Admin: 12/16/23 13:23 Dose: 5 mg Polyethylene Glycol (Polyethylene (Miralax) 17 Gm Pack) 17 gm PO DAILY SONIA Stop: 01/14/24 08:59 Last Admin: 12/16/23 09:03 Dose: Not Given
[2023-12-16 15:37] LABS: Appearance Urine Cloudy (Clear); Bacteria Urine Automated 4+ (Negative); Bilirubin Urine Negative (Negative); Blood Urine Negative (Negative); Color Urine Dark Yellow; Epithelial Cell Urine Auto 0-5 /lpf (0-5); Glucose Urine UA Negative (Negative); Ketones Urine Trace (Negative); Leukocyte Esterase Urine 2+ (Negative); Nitrite Urine Positive (Negative); RBC Urine Automated 0-4 /hpf (0-4); Specific Gravity Urine 1.033 (1.000-1.030); Urobilinogen Urine Negative (Negative); pH Urine >= 9.0 (4.5-7.5)
[2023-12-16 15:56] LABS: Protein Urine 2+ (Negative)
[2023-12-16] MEDS: cefTRIAXone SODIUM 2,000 MG in DEXTROSE 5 % MINI-B 50 ML IV SCH (17:40)
[2023-12-17 07:55] LABS: Basophils # (auto) 0.02 K/uL (0.00-0.20); Basophils % (auto) 0.3 %; Eosinophils # (auto) 0.31 K/uL (0.00-0.50); Eosinophils % (auto) 4.1 %; Hemoglobin 11.9 g/dl (12.0-16.0); Immature Granulocytes # (auto) 0.06 K/uL (0.01-0.20); Immature Granulocytes % (auto) 0.8 %; Lymphocytes % (auto) 17.2 %; Mean Corpuscular Hemoglobin 34.3 pg (25.0-34.0); Mean Corpuscular Hgb Conc 33.1 g/dL (32.0-36.0); Mean Corpuscular Volume 103.7 fL (80.0-100.0); Mean Platelet Volume 10.4 fL (9.4-12.4); Monocytes # (auto) 0.72 K/uL (0.11-0.59); Monocytes % (auto) 9.5 %; Neutrophils # (auto) 5.14 K/uL (1.40-6.50); Neutrophils % (auto) 68.1 %; Platelet Count 233 K/uL (130-400); RDW Coefficient of Variation 13.2 % (11.5-14.5); RDW Standard Deviation 50.7 fL (36.4-46.3); Red Blood Count 3.47 M/uL (4.20-5.40); White Blood Count 7.55 K/ul (4.8-10.8)
[2023-12-17 08:09] LABS: Albumin Globulin Ratio 1.5 (0.9-2); Albumin Level 3.5 gm/dl (3.4-5.0); BUN Creatinine Ratio 19.2 (10-20); Bilirubin,Total 0.5 mg/dl (0.2-1.0); Calcium 8.7 mg/dl (8.6-10.3); Creatinine Clr Calc Pharmacy 54.4 ml/min; Est GFR (Non-African American) 73.3 ml/min; Globulin 2.4 gm/dl (2.5-4.0); Potassium 3.5 mmol/L (3.5-5.1); Total Protein 5.9 gm/dl (6.0-8.3)
--- NOTE | 2023-12-17 11:14 | Discharge Summary ---
Discharge Summary Date of Service December 17, 2023 Notes For Next Care Provider Fracture of the left inferior pubic ramus, left acetabular fracture 2/2 fall, non-operative mgmt, dc to [facility] Medication Changes From Visit Ceftriaxone 2,000mg q24 Admission HPI Per Admitting Provider This is a 78yo F with PMHx of multiple sclerosis, HTN, B12 deficiency, diastolic dysfunction, trace mitral regurg, fatty liver, MDD and chronic tremulousness in her face,who presents to the hospital with acute worsening inability to bear weight on her left leg, and hip pain. Pt reports she has hx of MS and this happens occasionally. Last night she was trying to walk into the kitchen, fell denies any presyncopal symptoms, lightheadedness or dizziness however could not get up on her own. She states her right leg is always a little weaker than the left. Called EMS who got her on her couch, and this morning she found that she was unable to bear weight without significant amount of pain. She lives at home by herself, typically ambulates with use of a cane outside, but does not use assistive device in the house. She had to use her walker this morning, because it was very difficult to put weight on it. Pt moves bowels routinely every other day. Social : Pt drinks a glass of wine every day, denies any tobacco use or illicit drug use. Patient is found to have avascular necrosis of the left femoral head, acute comminuted nondisplaced fracture of the anterior wall of the left acetabulum with intra-aortic reticular extension, acute nondisplaced fracture of the left inferior pubic ramus and medial left pubic bone, minimally displaced left inferior sacral ala fracture on CT of the hip Admission Exam Per Admitting Provider General: awake, alert, no apparent distress, + tremulousness in facial muscles. Head: Normocephalic, atraumatic ENT: PERRL, EOMI, no pharyngeal exudate, mucous membranes moist Chest: Clear to auscultation, on room air, no adventitious breath sounds Cardiac: Regular rate and rhythm, no murmur, no JVD, normal peripheral pulses, good capillary refill Abdominal: NABS x 4 quadrants, soft, nondistended, nontender to palpation, no rebound or guarding Extremities: + mild muscular atrophy in lower extremities, L hip pain with movement, 2+ pitting edema in the RLE, she is slightly less swollen in the Left leg, no erythema, calfs nontender to palpation Psych: Normal mood and affect Neuro: AAO x 3, strength intact bilaterally and rated 4/5, no motor deficits, speech is clear, no peripheral sensory deficits Principal Dx & Hospital Course #1 = Principal Diagnosis (1) Left acetabular fracture: (2) Fracture of left inferior pubic ramus: (3) Multiple sclerosis: (4) HTN (hypertension): (5) B12 deficiency: Plan This is a 78-year-old female with significant past medical history of HTN, diastolic dysfunction, trace mitral regurgitation, B12 deficiency, multiple sclerosis, depression, history of CHF, history of SDH who presented to ED secondary to fall. Due to history of MS she states she tends to have frequent falls. Admitting CT revealed acute comminuted nondisplaced fracture of the anterior wall of the left acetabulum with intra-articular extension as well as acute nondisplaced fractures of the left inferior pubic ramus and the medial left pubic bone. Orthopedics consulted, who felt this could be managed nonoperatively with weightbearing instructions for protected weightbearing to left lower extremity, flatfoot weightbearing preferred but can be weightbearing as tolerated. Vitamin D level normal. Will require orthopedic follow-up in 2 weeks for repeat imaging and monitoring of fractures. Continue pain control with as needed Tylenol, as needed oxycodone for severe pain as well as ice. Continue bowel regimen. Noted to have fell malodorous urine in Real catheter yesterday with preliminary urine culture growing gram-negative bacilli. Will continue on empiric Rocephin started yesterday until urine cultures is finalized and patient can be transitioned to p.o. antibiotics at rehab. Has Real in place due to reduced mobility with planned trial of void tomorrow morning per discussion with patient. Patient is hemodynamically stable and comfortable at time of discharge to [facility] facility. Discharge Exam Gen: WD/WN, female, NAD, A&O x3 sitting upright in bed HEENT: Normocephalic, atraumatic, conjunctivae moist, sclerae anicteric, mucous membranes moist Lung: Clear to Auscultation bilaterally, no wheezes/rales/rhonchi Heart: Regular rate, regular rhythm, no murmurs, rubs, or gallops Abdomen: Soft, NT, ND +BS x 4 Extremities: No edema Skin: Warm, no rash : Real catheter Updated Medication List Medication Instructions Recorded Confirmed Type desvenlafaxine succinate 50 mg 50 mg PO QAM 06/10/19 12/14/23 History tablet,extended release 24 hr (Pristiq) cyanocobalamin (vitamin B-12) 1,000 mcg PO DAILY 06/15/19 12/14/23 History 1,000 mcg capsule alendronate 70 mg tablet 70 mg PO WK 06/20/21 12/14/23 History amlodipine 2.5 mg tablet 2.5 mg PO QAM 02/06/23 12/14/23 History folic acid 400 mcg tablet 0.4 mg PO DAILY 12/14/23 12/14/23 History ceftriaxone 2 gram intravenous 2 g IV DAILY 12/17/23 Rx solution oxycodone 5 mg tablet 5 mg PO Q8H PRN severe pain (scale 12/17/23 Rx score 7-10) #6 tabs polyethylene glycol 3350 17 gram 17 g PO DAILY PRN constipation #14 12/17/23 Rx oral powder packet (Miralax) ea Hospital Stay Data Consultations 12/14/23 16:42 ED Decision to Admit Stat 12/14/23 16:57 Consult Orthopedic Surgery Routine Diagnostic Imagining Performed 12/14/23 14:51 CT head/brain wo con Stat CT hip LT wo con Stat CT neck [CT cervical spine wo con] Stat 12/14/23 17:06 US leg [US venous doppler LE BI] Routine Pending Results Patient Have Any Pending Studies at Discharge: Yes Discharge Instructions Given to Patient (Per Discharging Provider) MEDICATION CHANGES: Continue IV Rocephin 2gm daily for UTI, awaiting final urine culture to transition to PO abx at [facility] Continue PRN Tylenol, oxycodone for severe breakthrough pain SUMMARY OF TEST RESULTS: You were admitted to hospital secondary to fall and found to have a fracture of the left inferior pubic ramus, left acetabular fracture Evaluated by orthopedics, can be managed non-operatively Weightbearing instructions: protected weightbearing to LLE, flatfoot weightbearing preferred but can be weightbearing as tolerated if easier for MS Preliminary urine culture from 12/15 growing gram negative bacilli - discharging on empiric Rocephin until finalizes Keep urinary real in place today with planned trial of void tomorrow once more mobile PENDING TEST RESULTS: Final urine culture RECOMMENDATIONS FOR FOLLOW-UP: Follow up with PCP as scheduled. Orthopedic follow-up in 2 weeks for repeat imaging and monitoring of fractures Continue medication regimen as scheduled aside from changes noted above. OTHER INSTRUCTIONS: Seek medical attention if you have: * temperature above 101 * chest pain or trouble breathing * abdominal pain, nausea, vomiting * diarrhea, dark stools or bloody stools * any unanswered questions or concerns Call 911 if symptoms are severe. Please take good care of yourself. Call if you have any questions or problems. You can reach a [facility] hospitalist on duty at [facility] 24 hours a day by calling [phone]. Anju Romo PA-C [facility] Hospitalist Total Time Total Time Spent Total Time Spent (In Minutes): 45 Supervising Physician Co-Signing Physician Notes I have seen and discussed the case with the collaborating advanced practitioner. I agree with the above PN. I have reviewed and confirmed the patients medical history, the findings on physical examination, and the patients diagnosis and treatment plan with Heydi CONNER and agree with the information documented. In short, Ms. Chapman is a 78 year old woman with history of MS admitted after sustaining pelvic fracture and left acetabular fracture from mechanical fall. Patient reports feeling overall well and eager to dispo to rehab. Afebrile. Denies any acute concerns or urinary complaints. Removed real. Exam with left lower extremity pain with ROM UA 4+ bacteria positive, nitrite positive, LE + Fracture of the left inferior pubic ramus Left acetabular fracture -PT/OT--dispo rehab Pain management Catheter associated UTI UA cx collected 12/15 with gram neg bacilli Treatment: discharged on rocephin, plans to follow up culture and update with further abx recommendations Transition to PO RX when able Multiple sclerosis stable Rest of plan as above I spent a total of 35 minutes coordinating, documenting, and providing care for this patient excluding time spent in the performance of separately billed services. All of the aforementioned completed outside of collaborating with the assigned advanced practitioner for a full treatment plan. I have reviewed the advanced practitioner's documentation, and I agree with, and take responsibility for the plan of care
--- NOTE | 2023-12-17 21:48 | Electrocardiogram Report ---
Test Reason : Blood Pressure : / mmHG Vent. Rate : 100 BPM Atrial Rate : 100 BPM P-R Int : 128 ms QRS Dur : 072 ms QT Int : 372 ms P-R-T Axes : 040 -19 -07 degrees QTc Int : 479 ms Normal sinus rhythm Nonspecific ST abnormality Prolonged QT Abnormal ECG When compared with ECG of 06-FEB-2023 15:07, Premature ventricular complexes are no longer Present Confirmed by Marcel Ortiz ([id number]) on 12/17/2023 9:48:12 PM Referred By: REFERRED SELF Confirmed By:Marcel Ortiz
== END 2023-12-17 12:11 | DRG 535 ==
LOC: ED 12:58 → SUATTDRO 16:57 → 3N 16:57

== ENCOUNTER 2025-06-28 22:51 | Observation (INO) ==
--- NOTE | 2025-06-28 23:00 | Emergency Department Note ---
Impression & Plan Generalized muscle weakness Admission ED Provider Note HPI: History obtained from patient. The patient is a very pleasant 79-year-old female with longstanding history of multiple sclerosis, presents to the emergency department with chief complaint of generalized weakness for the past several days. Patient states that she has had similar symptoms in the past associated with MS flares. Patient denies any headache, she denies any visual changes, she denies any focal complaint of pain. On arrival here to the ED the patient is alert, she does not have any focal deficits, she otherwise appears to be in no acute distress. Patient denies any recent fever or infectious symptoms. ROS: - Per HPI Differential Diagnosis: MS flare, dehydration/acute kidney injury, critical electrolyte abnormalities, urinary tract infection, pneumonia, stroke, intracranial hemorrhage, amongst other potential pathologies. *Outpatient medications and allergy history reviewed. PE: General: Alert, frail-appearing HEENT: Normocephalic, trachea midline Eyes: Extraocular eye movement is intact, no scleral erythema Pulmonary: Clear to auscultation bilaterally, no wheezing Cardio: Regular rate and rhythm GI: Abdomen is soft to palpation : No suprapubic tenderness MSK: No evidence of trauma or malformation of the extremities, no edema Skin: No evidence of rash Neuro: Alert, no focal deficits, equal bilateral juvenile court liaison strength, symmetrical facial movements are appreciated, there is no drift of the upper extremities or lower extremities with testing against gravity Psychiatric: Cooperative INDEPENDENT INTERPRETATIONS: playground monitor: (As interpreted by myself): - An order was placed for continuous cardiac monitoring - Patient was noted to be in sinus rhythm with a rate of 90 EKG: (As interpreted by myself): Rate: 91 Rhythm: Normal sinus rhythm Intervals: Within normal limits ST changes: No ST elevation Time: 2307 Interventions provided in ED: - IV fluid bolus Medical Decision Making: IV was established and lab work obtained, patient was placed on athletic monitor. Patient does not have any focal deficits on my exam. Lab work shows no leukocytosis, hemoglobin is normal, platelet count is normal, CMP does not show any evidence of any critical findings. Urinalysis does not show any evidence of infection. CT imaging of the head was obtained that does not show any evidence of any acute intracranial abnormality. Upon review of the patient's chart, she did have a neurology consult for similar symptoms back in 2022, at this time the [facility] neurologist felt that MS flare was unlikely the source of her weakness given her age, it was opted to not give the patient a course of high-dose steroids. I discussed this with the patient, she tells me that she has not been on high-dose steroids for many years. Given this, these were not initiated from the ED. Patient does state however that she feels too weak to go home, she states she does live alone. She is able to ambulate but with some difficulty. Patient would like to stay for neurology consult and further workup. I therefore discussed the patient's presentation with the on-call hospitalist, Dr. Sterling, and the patient was placed for admission in stable condition. Consultants/Discussions held with other healthcare providers: - Hospitalist, Dr. Sterling Disposition discussion held by myself with: - Patient Diagnosis: 1. Generalized weakness without obvious source, acute 2. History of multiple sclerosis 3. Ambulatory dysfunction, acute Disposition: Admission Chidi Hernández DO Emergency Medicine Past Med/Surg History Problem List (Updated 01/17/24 @ 00:08 by Background Ole) Generalized muscle weakness (Acute) Fall from ground level (Acute) Closed fracture of left pelvis (Acute) Macrocytosis without anemia Macrocytosis Falls frequently Weakness (Acute) Acute UTI (Acute) Multiple sclerosis (Acute) Traumatic open wound of right lower leg with delayed healing (Acute) Cellulitis (Acute) Leg wound, right (Acute) Edema leg (Acute) Generalized weakness HTN (hypertension) (Chronic) Depression (Chronic) B12 deficiency (Chronic) Subdural hematoma (Chronic) "s/p surgical intervention " H/O colonoscopy (Chronic) History of dental surgery (Chronic) Medical History Fracture of left inferior pubic ramus Left acetabular fracture Closed head injury Surgical History (Updated 01/17/24 @ 00:08 by Background Ole) S/P removal of ovarian cyst Family History Other Cancer Heart disease Neurological disorder Social History Smoking Status: Never smoker Tobacco Type: Cigarettes Second Hand Exposure: No; Do You Dip or Chew Tobacco: No; Hx Alcohol Use: Yes Alcohol type: wine Hx Substance Use: No Preferred Language: Portuguese Communication Ability: Effective Forest Officer Required: No Beliefs That Will Affect Care: None marital status: Single Current Living Situation: Alone current occupational status: retired Feels Safe at Home: Yes Assistive Devices: Cane, Walker and Other Allergies Allergies Allergy/AdvReac Type Severity Reaction Status Date / Time ampicillin Allergy Intermediate Hives Verified 12/14/23 17:20 ciprofloxacin [From Cipro] Allergy Intermediate Hives Verified 12/14/23 17:20 metronidazole [From Flagyl] Allergy Intermediate Rash Verified 12/14/23 17:20 Penicillins Allergy Intermediate Hives Verified 12/14/23 17:20 Sulfa (Sulfonamide Allergy Intermediate Hives Verified 12/14/23 17:20 Antibiotics) tetracycline Allergy Intermediate Hives Verified 12/14/23 17:20 Home Meds Home Medications Medication Instructions Recorded Confirmed desvenlafaxine succinate 50 mg 50 mg PO QAM 06/10/19 06/29/25 tablet,extended release 24 hr (Pristiq) cyanocobalamin (vitamin B-12) 1,000 mcg PO DAILY 06/15/19 06/29/25 1,000 mcg capsule alendronate 70 mg tablet 70 mg PO WK 06/20/21 06/29/25 folic acid 400 mcg tablet 0.4 mg PO DAILY 12/14/23 06/29/25 Results & Data (ED) Vital Signs Vital Signs - 24 hr 06/28/25 22:58 06/28/25 22:58 06/28/25 22:58 Temperature 36.8 C Temperature Source Oral Pulse Rate 93 H Pulse Rate [Apical] Pulse Rhythm [Apical] Respiratory Rate 18 Respiratory Effort / Characteristics Non-Labored Spontaneous Respiratory Depth Normal Respiratory Pattern Regular Blood Pressure 150/83 H Blood Pressure [Right Arm] Blood Pressure Mean 105 Blood Pressure Mean [Right Arm] Pulse Oximetry 94 94 94 Oxygen Delivery Method Room Air Room Air Room Air Sepsis Recent Fever Within 48 Hours No Sepsis New/Unexplained Change in Mental Status N/A Sepsis Action Taken by Nursing No Action Required 06/28/25 23:48 06/29/25 00:43 06/29/25 01:05 Temperature Temperature Source Pulse Rate 96 H Pulse Rate [Apical] 92 H 97 H Pulse Rhythm [Apical] Regular Respiratory Rate 15 17 Respiratory Effort / Characteristics Non-Labored Spontaneous Non-Labored Spontaneous Respiratory Depth Normal Normal Respiratory Pattern Regular Regular Blood Pressure Blood Pressure [Right Arm] 150/85 H 150/86 H Blood Pressure Mean Blood Pressure Mean [Right Arm] 106 107 Pulse Oximetry 95 94 Oxygen Delivery Method Room Air Room Air Sepsis Recent Fever Within 48 Hours Sepsis New/Unexplained Change in Mental Status Sepsis Action Taken by Nursing Laboratory Data 06/28/25 23:22 06/28/25 23:22 Lab Results 06/28/25 06/29/25 Range/Units 23:22 00:45 WBC 6.50 (4.8-10.8) K/ul RBC 4.03 L (4.20-5.40) M/uL Hgb 13.0 (12.0-16.0) g/dl Hct 39.4 (37.0-47.0) % MCV 97.8 (80.0-100.0) fL MCH 32.3 (25.0-34.0) pg MCHC 33.0 (32.0-36.0) g/dL RDW Std Deviation 46.3 (36.4-46.3) fL RDW Coeff of Love 13.0 (11.5-14.5) % Plt Count 222 (130-400) K/uL MPV 9.8 (9.4-12.4) fL Immature Gran % (Auto) 0.3 % Neut % (Auto) 57.4 % Lymph % (Auto) 18.3 % [place] % (Auto) 18.0 % Eos % (Auto) 5.4 % Baso % (Auto) 0.6 % Neut # (Auto) 3.73 (1.40-6.50) K/uL Lymph # (Auto) 1.19 L (1.20-3.40) K/uL [place] # (Auto) 1.17 H (0.11-0.59) K/uL Eos # (Auto) 0.35 (0.00-0.50) K/uL Baso # (Auto) 0.04 (0.00-0.20) K/uL Immature Gran # (Auto) 0.02 (0.01-0.20) K/uL Sodium 135 L (136-145) mmol/L Potassium 4.2 (3.5-5.1) mmol/L Chloride 99 (98-107) mmol/L Carbon Dioxide 24 (21-32) mmol/L Anion Gap 12 H (3-11) BUN 13 (6-23) mg/dl Creatinine 0.74 (0.6-1.2) mg/dl Est Cr Clr Drug Dosing 56.4 ml/min eGFR 82.76 BUN/Creatinine Ratio 17.6 (10-20) Glucose 85 (70-99(Fasting)) mg/dl Calcium 9.9 (8.6-10.3) mg/dl Total Bilirubin 0.3 (0.2-1.0) mg/dl AST 23 (13-39) U/L ALT 15 (7-52) U/L Alkaline Phosphatase 71 (34-104) U/L Total Protein 8.0 (6.0-8.3) gm/dl Albumin 4.8 (3.4-5.0) gm/dl Globulin 3.2 (2.5-4.0) gm/dl Albumin/Globulin Ratio 1.5 (0.9-2) Lipase 24 (11-82) U/L Urine Color Yellow Urine Appearance Clear (Clear) Urine pH 6.0 (4.5-7.5) Ur Specific [place] 1.007 (1.000-1.030) Urine Protein Negative (Negative) Urine Glucose (UA) Negative (Negative) Urine Ketones Negative (Negative) Urine Blood Negative (Negative) Urine Nitrite Negative (Negative) Urine Bilirubin Negative (Negative) Urine Urobilinogen Negative (Negative) Ur Leukocyte Esterase 1+ H (Negative) Urine WBC (Auto) 0-5 (0-5) /hpf Urine RBC (Auto) 0-2 (0-2) /hpf U Hyaline Cast (Auto) 0-2 (0-2) /lpf U Epithel Cells (Auto) 0-2 (0-2) /hpf Urine Bacteria (Auto) None Seen (None Seen) Urine Comment Administered Medications Discontinued Medications Sodium Chloride (Nss) 500 mls @ 999 mls/hr IV .Q31M STA Stop: 06/28/25 23:27 Last Infusion: 06/29/25 00:00 Dose: Infused Documented By: Admin: 06/28/25 23:21 Dose: 999 mls/hr Documented By: JAN Imaging Data Radiologist's Impression: Head CT 06/28/25 23:49 EXAM: CT head/brain wo con CLINICAL HISTORY: weakness TECHNIQUE: Multiple axial images were obtained from the skull base to the vertex without contrast. CT scan was performed according to ALARA (as low as reasonably achievable). COMPARISON: December 14, 2023, 14:50:39 MONOGRAM OPERATOR. FINDINGS: There is cerebral atrophy. Mild prominence of the CSF spaces is noted involving the bilateral frontal region and interhemispheric region, related to atrophy. There is no evidence of space-occupying lesion, hemorrhage, edema, mass effect, midline shift, extra-axial collection, or hydrocephalus. Basal cisterns are symmetric and normal in size and configuration. There are scattered periventricular hypodensities, as can be seen with chronic microvascular ischemic changes. The luna-white matter differentiation is preserved. The visualized paranasal sinuses and mastoid air cells are well aerated. Orbital contents are within normal limits. Post op changes seen in left frontal bone. Rest of the bony structures are intact. IMPRESSION: 1. No evidence of acute intracranial abnormality is demonstrated. 2. Chronic microvascular ischemic changes, stable. 3. Cerebral atrophy, stable. Electronically signed by Jose Hale 06-29-2025 02:09 AM Discharge Plan Visit Data Chief Complaint: Weakness Stated Complaint: Weakness ED Provider: Chidi Hernández Discharge Problem: Generalized muscle weakness Patient Disposition: Admitted As Inpatient Condition: Fair Forms Stand Alone Forms: My [facility] Prescriptions Prescriptions: No Action desvenlafaxine succinate [Pristiq] 50 mg tablet extended release 24 hr 50 mg PO QAM cyanocobalamin (vitamin B-12) 1,000 mcg Capsule 1,000 mcg PO DAILY alendronate 70 mg tablet 70 mg PO WK Rx Instructions: TAKES ON THURSDAY, PER PT "TAKE WHEN I REMEMBER". folic acid 400 mcg Tablet 0.4 mg PO DAILY Referrals Referrals: Carlos Bhagat MD [Primary Care Provider] -
[2025-06-28] MEDS: SODIUM CHLORIDE 0.9% 500 ML IV STA (23:21)
[2025-06-28 23:43] LABS: Hematocrit (blood only) 39.4 % (37.0-47.0); Hemoglobin 13.0 g/dl (12.0-16.0); Immature Granulocytes # (auto) 0.02 K/uL (0.01-0.20); Immature Granulocytes % (auto) 0.3 %; Mean Corpuscular Hemoglobin 32.3 pg (25.0-34.0); Mean Corpuscular Volume 97.8 fL (80.0-100.0); Platelet Count 222 K/uL (130-400); RDW Standard Deviation 46.3 fL (36.4-46.3); Red Blood Count 4.03 M/uL (4.20-5.40); White Blood Count 6.50 K/ul (4.8-10.8)
[2025-06-29 00:01] LABS: Alanine Aminotransferase 15.0 U/L (7-52); Albumin Globulin Ratio 1.5 (0.9-2); Albumin Level 4.8 gm/dl (3.4-5.0); Alkaline Phosphatase 71.0 U/L (34-104); Anion Gap 12.0 (3-11); Bilirubin,Total 0.3 mg/dl (0.2-1.0); Blood Urea Nitrogen 13.0 mg/dl (6-23); Calcium 9.9 mg/dl (8.6-10.3); Carbon Dioxide 24.0 mmol/L (21-32); Chloride 99.0 mmol/L (98-107); Creatinine Clr Calc Pharmacy 56.4 ml/min; Globulin 3.2 gm/dl (2.5-4.0); Glucose 85.0 mg/dl (70-99(Fasting)); Lipase 24.0 U/L (11-82); Potassium 4.2 mmol/L (3.5-5.1); Sodium 135.0 mmol/L (136-145); Total Protein 8.0 gm/dl (6.0-8.3)
[2025-06-29 01:02] LABS: Appearance Urine Clear (Clear); Bacteria Urine Automated None Seen (None Seen); Cast Urine Automated 0-2 /lpf (0-2); Epithelial Cell Urine Auto 0-2 /hpf (0-2); Glucose Urine UA Negative (Negative); RBC Urine Automated 0-2 /hpf (0-2); WBC Urine Automated 0-5 /hpf (0-5)
--- NOTE | 2025-06-29 03:22 | CT Scan Report ---
EXAM: CT head/brain wo con CLINICAL HISTORY: weakness TECHNIQUE: Multiple axial images were obtained from the skull base to the vertex without contrast. CT scan was performed according to ALARA (as low as reasonably achievable). COMPARISON: December 14, 2023, 14:50:39 BRANCH SERVICE SPECIALIST. FINDINGS: There is cerebral atrophy. Mild prominence of the CSF spaces is noted involving the bilateral frontal region and interhemispheric region, related to atrophy. There is no evidence of space-occupying lesion, hemorrhage, edema, mass effect, midline shift, extra-axial collection, or hydrocephalus. Basal cisterns are symmetric and normal in size and configuration. There are scattered periventricular hypodensities, as can be seen with chronic microvascular ischemic changes. The luna-white matter differentiation is preserved. The visualized paranasal sinuses and mastoid air cells are well aerated. Orbital contents are within normal limits. Post op changes seen in left frontal bone. Rest of the bony structures are intact. IMPRESSION: 1. No evidence of acute intracranial abnormality is demonstrated. 2. Chronic microvascular ischemic changes, stable. 3. Cerebral atrophy, stable. Electronically signed by Jose Hale 06-29-2025 02:09 AM
--- NOTE | 2025-06-29 03:50 | History & Physical Report ---
Date of Service June 29, 2025 Assessment & Plan (1) Leg weakness, bilateral: Plan: Assessment and plan below following discussion of case with ED provider and reviewing patient history/pertinent normal/abnormal diagnostic test results. Bilateral leg weakness ? MS flareup Patient has a good strength on MMT done on both lower extremities chronic diastolic heart failure (60%, TTE 2020), patient euvolemic hypertension, slightly elevated, patient not currently on maintenance medications, prior amlodipine Rx as per records history traumatic subdural hematoma status post surgery (2010, ) Mood disorder, stable past tobacco abuse OBS Admit to med/tele Neurochecks Neurology consult Re: Bilateral leg weakness possible MS flareup Hold off on steroid Rx until patient seen by neurology PT OT eval DVT prophylaxis. Lovenox subcu Full code Text document was generated using [employer] voice recognition software. It may contain grammatical or spelling errors. Kindly contact undersigned for clarification of any documentation item in qu estion. History of Present Illness Chief Complaint: Bilateral leg weakness, MS flareup Primary Care Provider: Carlos Bhagat MD History obtained from patient and records. Medical history significant for chronic diastolic heart failure (60%, TTE 2020), hypertension, trace MR, NAFLD, past history C. difficile, multiple sclerosis, history traumatic subdural hematoma status post surgery, mood disorder, past tobacco abuse. Last confinement 2023 for traumatic left acetabular fracture and pelvic fractures second to fall and UTI. Nonoperative intervention for orthopedic injury. 3 days ago, patient noted bilateral leg weakness reminiscent of MS flareup. Trouble ambulating. Denies headache, chest pain, cough, SOB, dysuria symptoms. Last attack was last year. Weakness improved with outpatient steroid prescription from physician. Patient consulted ER for evaluation. Uncomfortable going home. 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 Allergies Allergy/AdvReac Type Severity Reaction Status Date / Time ampicillin Allergy Intermediate Hives Verified 12/14/23 17:20 ciprofloxacin [From Cipro] Allergy Intermediate Hives Verified 12/14/23 17:20 metronidazole [From Flagyl] Allergy Intermediate Rash Verified 12/14/23 17:20 Penicillins Allergy Intermediate Hives Verified 12/14/23 17:20 Sulfa (Sulfonamide Allergy Intermediate Hives Verified 12/14/23 17:20 Antibiotics) tetracycline Allergy Intermediate Hives Verified 12/14/23 17:20 Home Medications Medication Instructions Recorded Confirmed Type desvenlafaxine succinate 50 mg 50 mg PO QAM 06/10/19 06/29/25 History tablet,extended release 24 hr (Pristiq) cyanocobalamin (vitamin B-12) 1,000 mcg PO DAILY 06/15/19 06/29/25 History 1,000 mcg capsule alendronate 70 mg tablet 70 mg PO WK 06/20/21 06/29/25 History folic acid 400 mcg tablet 0.4 mg PO DAILY 12/14/23 06/29/25 History Past Med/Surg History Problem List (Updated 01/17/24 @ 00:08 by Background Ole) Leg weakness, bilateral Generalized muscle weakness (Acute) Fall from ground level (Acute) Closed fracture of left pelvis (Acute) Macrocytosis without anemia Macrocytosis Falls frequently Weakness (Acute) Acute UTI (Acute) Multiple sclerosis (Acute) Traumatic open wound of right lower leg with delayed healing (Acute) Cellulitis (Acute) Leg wound, right (Acute) Edema leg (Acute) Generalized weakness HTN (hypertension) (Chronic) Depression (Chronic) B12 deficiency (Chronic) Subdural hematoma (Chronic) "s/p surgical intervention " H/O colonoscopy (Chronic) History of dental surgery (Chronic) Medical History Fracture of left inferior pubic ramus Left acetabular fracture Closed head injury Surgical History (Updated 01/17/24 @ 00:08 by Background Ole) S/P removal of ovarian cyst Family History Other Cancer Heart disease Neurological disorder Social History Smoking Status: Never smoker Tobacco Type: Cigarettes Second Hand Exposure: No; Do You Dip or Chew Tobacco: No; Hx Alcohol Use: Yes Alcohol type: wine Hx Substance Use: No Preferred Language: Yi Communication Ability: Effective Upholstery Cleaner Required: No Beliefs That Will Affect Care: None marital status: Single Current Living Situation: Alone current occupational status: retired Feels Safe at Home: Yes Assistive Devices: Cane, Walker and Other Review of Systems Review of Systems: As per HPI, all other systems reviewed and negative Physical Exam Physical Exam: GENERAL: Comfortable, pleasant, no respiratory distress SKIN: Normal color, warm HEENT: [place] palpebral conjunctivae, no ptosis, dry buccal mucosa, partially edentulous NECK : Supple, no tenderness CHEST : CTA, no tenderness HEART : RRR, no obvious murmurs ABDOMEN: Some distention, nontender EXTREMITIES : No LE swelling/tenderness, palpable pulses, no other conspicuous deformities noted NEUROLOGIC : Coherent, no facial asymmetry, MMTS BUE/BLE 4/5, gait and stance not assessed Results & Data Results & Data Vital Signs (Past 12 Hours) Vital Signs Temp Pulse Pulse Resp BP BP Pulse Ox 06/29/25 01:05 97 H 17 150/86 H 94 06/29/25 00:43 92 H 15 150/85 H 95 06/28/25 23:48 96 H 06/28/25 22:58 94 06/28/25 22:58 94 06/28/25 22:58 36.8 C 93 H 18 150/83 H 94 O2 Del Method 06/29/25 01:05 Room Air 06/29/25 00:43 Room Air 06/28/25 23:48 06/28/25 22:58 Room Air 06/28/25 22:58 Room Air 06/28/25 22:58 Room Air Laboratory Results Laboratory Results WBC 6.50 K/ul (4.8-10.8) 06/28/25 23:22 RBC 4.03 M/uL (4.20-5.40) L 06/28/25 23:22 Hgb 13.0 g/dl (12.0-16.0) 06/28/25 23:22 Hct 39.4 % (37.0-47.0) 06/28/25 23:22 MCV 97.8 fL (80.0-100.0) 06/28/25 23:22 MCH 32.3 pg (25.0-34.0) 06/28/25 23:22 MCHC 33.0 g/dL (32.0-36.0) 06/28/25 23:22 RDW Std Deviation 46.3 fL (36.4-46.3) 06/28/25 23:22 RDW Coeff of Love 13.0 % (11.5-14.5) 06/28/25 23:22 Plt Count 222 K/uL (130-400) 06/28/25 23:22 MPV 9.8 fL (9.4-12.4) 06/28/25 23:22 Immature Gran % (Auto) 0.3 % 06/28/25 23:22 Neut % (Auto) 57.4 % 06/28/25 23:22 Lymph % (Auto) 18.3 % 06/28/25 23:22 [place] % (Auto) 18.0 % 06/28/25 23:22 Eos % (Auto) 5.4 % 06/28/25 23:22 Baso % (Auto) 0.6 % 06/28/25 23:22 Neut # (Auto) 3.73 K/uL (1.40-6.50) 06/28/25 23:22 Lymph # (Auto) 1.19 K/uL (1.20-3.40) L 06/28/25 23:22 [place] # (Auto) 1.17 K/uL (0.11-0.59) H 06/28/25 23:22 Eos # (Auto) 0.35 K/uL (0.00-0.50) 06/28/25 23:22 Baso # (Auto) 0.04 K/uL (0.00-0.20) 06/28/25 23:22 Immature Gran # (Auto) 0.02 K/uL (0.01-0.20) 06/28/25 23:22 Sodium 135 mmol/L (136-145) L 06/28/25 23:22 Potassium 4.2 mmol/L (3.5-5.1) 06/28/25 23:22 Chloride 99 mmol/L (98-107) 06/28/25 23:22 Carbon Dioxide 24 mmol/L (21-32) 06/28/25 23:22 Anion Gap 12 (3-11) H 06/28/25 23:22 BUN 13 mg/dl (6-23) 06/28/25 23:22 Creatinine 0.74 mg/dl (0.6-1.2) 06/28/25 23:22 Est Cr Clr Drug Dosing 56.4 ml/min 06/28/25 23:22 eGFR 82.76 06/28/25 23:22 BUN/Creatinine Ratio 17.6 (10-20) 06/28/25 23:22 Glucose 85 mg/dl (70-99(Fasting)) 06/28/25 23:22 Calcium 9.9 mg/dl (8.6-10.3) 06/28/25 23:22 Total Bilirubin 0.3 mg/dl (0.2-1.0) 06/28/25 23:22 AST 23 U/L (13-39) 06/28/25 23:22 ALT 15 U/L (7-52) 06/28/25 23:22 Alkaline Phosphatase 71 U/L (34-104) 06/28/25 23:22 Total Protein 8.0 gm/dl (6.0-8.3) 06/28/25 23:22 Albumin 4.8 gm/dl (3.4-5.0) 06/28/25 23:22 Globulin 3.2 gm/dl (2.5-4.0) 06/28/25 23:22 Albumin/Globulin Ratio 1.5 (0.9-2) 06/28/25 23:22 Lipase 24 U/L (11-82) 06/28/25 23:22 Urine Color Yellow 06/29/25 00:45 Urine Appearance Clear (Clear) 06/29/25 00:45 Urine pH 6.0 (4.5-7.5) 06/29/25 00:45 Ur Specific [place] 1.007 (1.000-1.030) 06/29/25 00:45 Urine Protein Negative (Negative) 06/29/25 00:45 Urine Glucose (UA) Negative (Negative) 06/29/25 00:45 Urine Ketones Negative (Negative) 06/29/25 00:45 Urine Blood Negative (Negative) 06/29/25 00:45 Urine Nitrite Negative (Negative) 06/29/25 00:45 Urine Bilirubin Negative (Negative) 06/29/25 00:45 Urine Urobilinogen Negative (Negative) 06/29/25 00:45 Ur Leukocyte Esterase 1+ (Negative) H 06/29/25 00:45 Urine WBC (Auto) 0-5 /hpf (0-5) 06/29/25 00:45 Urine RBC (Auto) 0-2 /hpf (0-2) 06/29/25 00:45 U Hyaline Cast (Auto) 0-2 /lpf (0-2) 06/29/25 00:45 U Epithel Cells (Auto) 0-2 /hpf (0-2) 06/29/25 00:45 Urine Bacteria (Auto) None Seen (None Seen) 06/29/25 00:45 Urine Comment 06/29/25 00:[address] 06/28/25 23:49 EXAM: CT head/brain wo con CLINICAL HISTORY: weakness TECHNIQUE: Multiple axial images were obtained from the skull base to the vertex without contrast. CT scan was performed according to ALARA (as low as reasonably achievable). COMPARISON: December 14, 2023, 14:50:39 GALLERY OR MUSEUM GUIDE. FINDINGS: There is cerebral atrophy. Mild prominence of the CSF spaces is noted involving the bilateral frontal region and interhemispheric region, related to atrophy. There is no evidence of space-occupying lesion, hemorrhage, edema, mass effect, midline shift, extra-axial collection, or hydrocephalus. Basal cisterns are symmetric and normal in size and configuration. There are scattered periventricular hypodensities, as can be seen with chronic microvascular ischemic changes. The luna-white matter differentiation is preserved. The visualized paranasal sinuses and mastoid air cells are well aerated. Orbital contents are within normal limits. Post op changes seen in left frontal bone. Rest of the bony structures are intact. IMPRESSION: 1. No evidence of acute intracranial abnormality is demonstrated. 2. Chronic microvascular ischemic changes, stable. 3. Cerebral atrophy, stable. Electronically signed by Jose Hale 06-29-2025 02:09 AM Diagnostic Findings EKG as per my interpretation :Rate 90, NSR, LAD, LAFB, no ischemia
[2025-06-29] MEDS ORDERED: ACETAMINOPHEN 325 MG TAB PO PRN (04:27)
[2025-06-29] MEDS ORDERED: PROMETHAZINE 6.25 MG/50.25 ML BAG IV PRN (04:27)
[2025-06-29 05:01] LABS: Magnesium 1.7 mg/dl (1.7-2.4)
[2025-06-29 07:10] LABS: Blood Urea Nitrogen 11 mg/dl (6-23); Calcium 9.7 mg/dl (8.6-10.3); Carbon Dioxide 27 mmol/L (21-32); Chloride 101 mmol/L (98-107); Creatinine Clr Calc Pharmacy 63.2 ml/min; Glucose 97 mg/dl (70-99(Fasting))
[2025-06-29 07:48] LABS: Hematocrit (blood only) 39.6 % (37.0-47.0); Hemoglobin 13.1 g/dl (12.0-16.0); Immature Granulocytes # (auto) 0.02 K/uL (0.01-0.20); Immature Granulocytes % (auto) 0.3 %; Mean Corpuscular Hemoglobin 33.5 pg (25.0-34.0); Mean Corpuscular Volume 101.3 fL (80.0-100.0); Platelet Count 234 K/uL (130-400); RDW Standard Deviation 48.0 fL (36.4-46.3); Red Blood Count 3.91 M/uL (4.20-5.40); White Blood Count 6.20 K/ul (4.8-10.8)
[2025-06-29 07:59] LABS: Potassium 4.0 mmol/L (3.5-5.1); Sodium 137.0 mmol/L (136-145)
[2025-06-29] MEDS: ENOXAPARIN INJ 40 MG/0.4 ML SYR SQ SCH (08:20)
[2025-06-29] MEDS: FOLIC ACID 400 MCG TAB PO SCH (08:20)
[2025-06-29] MEDS: CYANOCOBALAMIN (B-12) 500 MCG TABLET PO SCH (08:20)
--- NOTE | 2025-06-29 11:23 | Communication Note ---
Date of Service: June 29, 2025 Patient seen and examined bedside. She is lying in the bed comfortably; not in distress Reports that she is feeling better compared to last couple of days. On physical examination; Constitutional: Alert oriented x 3; not in distress. Respiratory: normal respiratory effort, lungs clear to auscultation, no wheeze, rales, rhonchi. Normal insp/exp effort, no accessory muscle use Cardiovascular: RRR, no murmur, no edema Vessels: no JVD or carotid bruit Chest: normal inspection of chest Abdomen: normal bowel sounds, soft, nontender, no hepatosplenomegaly Musculoskeletal: no cyanosis or clubbing, extremities motor strength 5/5 Skin: no rashes, warm and dry normal turgor Neurologic: PERRL, EOMI, accommodation nl, no face palsy, no dysarthria CN's II- XI intact bilaterally and moves all extremities Psychiatric: A+Ox3, euthymic affect Assessment/plan Possible MS flarereports history of similar symptoms in the past; seen by neurology in the past and was given steroid course. Not on any disease modifying medication currently. Symptoms seems to have been improving. Neurology has been consulted; appreciate recommendation. PT OT ordered Continue other home meds. Please note the above document was generated using voice recognition software. It may contain grammatical, syntax or spelling errors. Any formal questions or concerns about the content, text or information contained within the body of this dictation should be directly addressed to the provider for clarification
--- NOTE | 2025-06-29 15:25 | Neurology Consultation ---
Date of Consultation June 29, 2025 Assessment & Plan (1) Leg weakness, bilateral: In this age group, multiple sclerosis exacerbation is less likely, however she does tell me that she has had 1 exacerbation in the last year which did improve with administration of steroids. I did offer the patient an MR L-spine with and without contrast to assess for any other pathology or enhancing lesions, however she does prefer to proceed to trial of steroids for symptom relief. I think this could be reasonable. I do not see any signs of underlying infection. In her age group, would recommend prednisone 80 mg daily for 5 days. I would recommend watching her overnight to assess response for steroids. If trial of steroid does not improve her symptoms, I would recommend MR L-spine for further evaluation. I do recommend she follow up with her outpatient neurologist in 1 month after discharge. Would recommend inpatient PT/OT evaluation prior to discharge. I discussed my recommendations with Dr. Remigio Todd. Thank you for this consult. Please call with questions. Telehealth Consultation Telehealth Information Telehealth Information: I performed this visit using a real-time telehealth connection between my location and the patients location ([facility]). After connecting through interactive tele-video, patient was identified by name and date of and/or wristband check.Patient (or authorized healthcare district sales representative) was informed that this was a telemedicine visit and it was being conducted confidentially over secure lines. My office door was closed and no one else was present in the room with me.Patient (or authorized healthcare district sales representative) provided consent to proceed with the visit, expressed an understanding of privacy and security of the telemedicine visit, and gave permission to have a hospital district sales representative in the room in order to assist with the visit and to conduct portions of the visit, as needed. I informed the patient (or authorized healthcare district sales representative) that I reviewed their record and presented the opportunity for them to ask any questions regarding the visit today. The patient agreed to participate. History of Present Illness Reason for Consultation: MS exacerbation Attending Physician: Remigio Todd MD History of Present Illness Floresita Chapman is a 79-year-old female with a past medical history of multiple sclerosis who presents to [facility] Emergency Department on 06/29/2025 with bilateral lower extremity weakness. I saw and examined the patient at bedside. She is concern for an MS exacerbation. She tells me she was diagnosed with multiple sclerosis at age 22, approximately 50 years ago. She was diagnosed with a lumbar puncture and radiographic support per her report. She is not currently taking any medications for multiple sclerosis. She stopped interferon beta a few years ago. She tells me she has had 1 exacerbation since then approximately 1 year ago for which she was treated with a steroid taper. She reports a steroid taper improved her symptoms although it took her about a month to returned to her baseline. At baseline, the patient is relatively independent. She ambulates with a walker but otherwise does not need help with eating, bathing, walking, driving, or finances. She denies any midline back pain or spinal issues. She tells me her weakness started 3-4 days ago when she noticed that it was more difficult for her to ambulate with her walker. We discussed obtaining spinal imaging MR L-spine with and without contrast to assess if any spinal pathology which could lead to her symptoms. She prefers treatment with steroids as per her report prior spinal imaging has been unrevealing. No recent sick contacts or illness. UA is normal. Allergies Allergy/AdvReac Type Severity Reaction Status Date / Time ampicillin Allergy Intermediate Hives Verified 12/14/23 17:20 ciprofloxacin [From Cipro] Allergy Intermediate Hives Verified 12/14/23 17:20 metronidazole [From Flagyl] Allergy Intermediate Rash Verified 12/14/23 17:20 Penicillins Allergy Intermediate Hives Verified 12/14/23 17:20 Sulfa (Sulfonamide Allergy Intermediate Hives Verified 12/14/23 17:20 Antibiotics) tetracycline Allergy Intermediate Hives Verified 12/14/23 17:20 Home Medications Medication Instructions Recorded Confirmed Type desvenlafaxine succinate 50 mg 50 mg PO QAM 06/10/19 06/29/25 History tablet,extended release 24 hr (Pristiq) cyanocobalamin (vitamin B-12) 1,000 mcg PO DAILY 06/15/19 06/29/25 History 1,000 mcg capsule alendronate 70 mg tablet 70 mg PO WK 06/20/21 06/29/25 History folic acid 400 mcg tablet 0.4 mg PO DAILY 12/14/23 06/29/25 History Patient History Medical History Fracture of left inferior pubic ramus Left acetabular fracture Closed head injury Surgical History (Updated 01/17/24 @ 00:08 by Juice Handy) S/P removal of ovarian cyst Family History Other Cancer Heart disease Neurological disorder Social History Smoking Status: Never smoker Tobacco Type: Cigarettes Second Hand Exposure: No; Do You Dip or Chew Tobacco: No; Hx Alcohol Use: No Hx Substance Use: No Preferred Language: Albanian Communication Ability: Effective Repairer Typewriter Required: No Beliefs That Will Affect Care: None marital status: Single Current Living Situation: Alone current occupational status: retired Feels Safe at Home: Yes Safety Concerns: Feels Safe At This Time Assistive Devices: None Review of Systems ROS reviewed and negative except as above. Physical Exam Physical Exam: General Appearance: Alert HEENT: anicteric sclera, no scleral injection Lungs: respirations appear comfortable, no obvious increased work of breathing Extremities: No cyanosis or fingernail clubbing Skin: No rashes in exposed skin areas Objective Limited due to Televideo encounter Physical Exam: General Appearance: Alert Neurological Examination: Mental status: Alert and oriented. No dysarthria. Cranial Nerves: Extraocular movements intact and spontaneous. Midline gaze. Face symmetric. Sensory: Normal sensory exam to light touch. Motor: Bilateral upper extremities antigravity without drift. Bilateral lower extremities weak antigravity with drift. Results & Data Vital Signs (Past 12 Hours) Vital Signs Temp Pulse Pulse Resp BP Pulse Ox O2 Del Method 06/29/25 12:00 36.5 C 113 H 27 H 133/81 99 Room Air 06/29/25 08:04 37.1 C 115 H 19 124/97 93 Room Air 06/29/25 06:34 107 H 06/29/25 06:00 101 H 20 160/91 H 94 Room Air 06/29/25 05:00 102 H 21 169/91 H 96 Room Air 06/29/25 04:48 102 H 22 160/86 H 97 Room Air 06/29/25 04:48 102 H 22 97 Room Air Laboratory Results 06/29/25 06/29/25 06/29/25 07:33 05:04 00:45 WBC 6.20 Cancelled RBC 3.91 L Cancelled Hgb 13.1 Cancelled Hct 39.6 Cancelled MCV 101.3 H Cancelled MCH 33.5 Cancelled MCHC 33.1 Cancelled RDW Std Deviation 48.0 H Cancelled RDW Coeff of Love 12.9 Cancelled Plt Count 234 Cancelled MPV 9.7 Cancelled Immature Gran % (Auto) 0.3 Cancelled Neut % (Auto) 53.2 Cancelled Lymph % (Auto) 20.2 Cancelled [place] % (Auto) 19.4 Cancelled Eos % (Auto) 6.1 Cancelled Baso % (Auto) 0.8 Cancelled Neut # (Auto) 3.30 Cancelled Lymph # (Auto) 1.25 Cancelled [place] # (Auto) 1.20 H Cancelled Eos # (Auto) 0.38 Cancelled Baso # (Auto) 0.05 Cancelled Immature Gran # (Auto) 0.02 Cancelled Absolute Nucleated RBC Cancelled Nucleated RBC % (auto) Cancelled Neutrophils % (Manual) Cancelled Band Neutrophils % Cancelled Lymphocytes % (Manual) Cancelled Prolymphocyte % Cancelled Reactive Lymphs % (Man) Cancelled Monocytes % (Manual) Cancelled Eosinophils % (Manual) Cancelled Basophils % (Manual) Cancelled Metamyelocytes % (Man) Cancelled Myelocytes % (Man) Cancelled Promyelocytes % (Man) Cancelled Blast Cells % (Manual) Cancelled Plasma Cell % (Manual) Cancelled Other Cells % Cancelled Nucleated RBC % Cancelled Neutrophils # (Manual) Cancelled Band Neutrophils # Cancelled Total Absolute Neuts Cancelled Lymphocytes # (Manual) Cancelled Prolymphocyte # Cancelled Reactive Lymphs # Cancelled Total Abs Lymphocytes Cancelled Monocytes # (Manual) Cancelled Eosinophils # (Manual) Cancelled Basophils # (Manual) Cancelled Metamyelocytes # (Man) Cancelled Myelocytes # (Manual) Cancelled Promyelocytes # (Man) Cancelled Blast Cells # (Man) Cancelled Plasma Cell # (Manual) Cancelled Other Cells # Cancelled Nucleated RBCs # (Man) Cancelled Hypersegmented Neuts Cancelled Hyposegmented Neuts Cancelled Hypogranular Neuts Cancelled Large Granular Lymphs Cancelled # Lrg Granular Lymphs Cancelled Hairy Cells Cancelled Smudge Cells Cancelled Toxic Granulation Cancelled Toxic Vacuolation Cancelled Dohle Bodies Cancelled Rayray Rods Cancelled Platelet Estimate Cancelled Hypogranular Platelets Cancelled Giant Platelets Cancelled Platelet Satelliting Cancelled RBC Morphology Cancelled Polychromasia Cancelled Hypochromasia Cancelled Poikilocytosis Cancelled Basophilic Stippling Cancelled Anisocytosis Cancelled Microcytosis Cancelled Macrocytosis Cancelled Spherocytes Cancelled Pappenheimer Bodies Cancelled Sickle Cells Cancelled Target Cells Cancelled Tear Drop Cells Cancelled Ovalocytes Cancelled Stomatocytes Cancelled [employer] Bodies Cancelled Echinocytes Cancelled Acanthocytes (Spur) Cancelled Rouleaux Cancelled RBC Agglutinates Cancelled Schistocytes Cancelled Sezary Cell Cancelled Sodium 137 TNP Potassium 4.0 TNP Chloride 101 Carbon Dioxide 27 Anion Gap TNP BUN 11 Creatinine 0.66 Est Cr Clr Drug Dosing 63.2 eGFR 89.73 BUN/Creatinine Ratio 16.7 Glucose 97 Calcium 9.7 Magnesium Total Bilirubin AST ALT Alkaline Phosphatase Total Protein Albumin Globulin Albumin/Globulin Ratio Lipase Urine Color Yellow Urine Appearance Clear Urine pH 6.0 Ur Specific Bent 1.007 Urine Protein Negative Urine Glucose (UA) Negative Urine Ketones Negative Urine Blood Negative Urine Nitrite Negative Urine Bilirubin Negative Urine Urobilinogen Negative Ur Leukocyte Esterase 1+ H Urine WBC (Auto) 0-5 Urine RBC (Auto) 0-2 U Hyaline Cast (Auto) 0-2 U Epithel Cells (Auto) 0-2 Urine Bacteria (Auto) None Seen Urine Comment Blood Parasites ID Cancelled 06/28/25 23:22 WBC 6.50 RBC 4.03 L Hgb 13.0 Hct 39.4 MCV 97.8 MCH 32.3 MCHC 33.0 RDW Std Deviation 46.3 RDW Coeff of Love 13.0 Plt Count 222 MPV 9.8 Immature Gran % (Auto) 0.3 Neut % (Auto) 57.4 Lymph % (Auto) 18.3 [place] % (Auto) 18.0 Eos % (Auto) 5.4 Baso % (Auto) 0.6 Neut # (Auto) 3.73 Lymph # (Auto) 1.19 L [place] # (Auto) 1.17 H Eos # (Auto) 0.35 Baso # (Auto) 0.04 Immature Gran # (Auto) 0.02 Absolute Nucleated RBC Nucleated RBC % (auto) Neutrophils % (Manual) Band Neutrophils % Lymphocytes % (Manual) Prolymphocyte % Reactive Lymphs % (Man) Monocytes % (Manual) Eosinophils % (Manual) Basophils % (Manual) Metamyelocytes % (Man) Myelocytes % (Man) Promyelocytes % (Man) Blast Cells % (Manual) Plasma Cell % (Manual) Other Cells % Nucleated RBC % Neutrophils # (Manual) Band Neutrophils # Total Absolute Neuts Lymphocytes # (Manual) Prolymphocyte # Reactive Lymphs # Total Abs Lymphocytes Monocytes # (Manual) Eosinophils # (Manual) Basophils # (Manual) Metamyelocytes # (Man) Myelocytes # (Manual) Promyelocytes # (Man) Blast Cells # (Man) Plasma Cell # (Manual) Other Cells # Nucleated RBCs # (Man) Hypersegmented Neuts Hyposegmented Neuts Hypogranular Neuts Large Granular Lymphs # Lrg Granular Lymphs Hairy Cells Smudge Cells Toxic Granulation Toxic Vacuolation Dohle Bodies Rayray Rods Platelet Estimate Hypogranular Platelets Giant Platelets Platelet Satelliting RBC Morphology Polychromasia Hypochromasia Poikilocytosis Basophilic Stippling Anisocytosis Microcytosis Macrocytosis Spherocytes Pappenheimer Bodies Sickle Cells Target Cells Tear Drop Cells Ovalocytes Stomatocytes [employer] Bodies Echinocytes Acanthocytes (Spur) Rouleaux RBC Agglutinates Schistocytes Sezary Cell Sodium 135 L Potassium 4.2 Chloride 99 Carbon Dioxide 24 Anion Gap 12 H BUN 13 Creatinine 0.74 Est Cr Clr Drug Dosing 56.4 eGFR 82.76 BUN/Creatinine Ratio 17.6 Glucose 85 Calcium 9.9 Magnesium 1.7 Total Bilirubin 0.3 AST 23 ALT 15 Alkaline Phosphatase 71 Total Protein 8.0 Albumin 4.8 Globulin 3.2 Albumin/Globulin Ratio 1.5 Lipase 24 Urine Color Urine Appearance Urine pH Ur Specific Bent Urine Protein Urine Glucose (UA) Urine Ketones Urine Blood Urine Nitrite Urine Bilirubin Urine Urobilinogen Ur Leukocyte Esterase Urine WBC (Auto) Urine RBC (Auto) U Hyaline Cast (Auto) U Epithel Cells (Auto) Urine Bacteria (Auto) Urine Comment Blood Parasites ID Diagnostic Findings Head CT 06/28/25 23:49 CLINICAL HISTORY: weakness IMPRESSION: 1. No evidence of acute intracranial abnormality is demonstrated. 2. Chronic microvascular ischemic changes, stable. 3. Cerebral atrophy, stable. Electronically signed by Jose Hale 06-29-2025 02:09 AM Medications Administered Home Medications Medication Instructions Recorded Confirmed Last Taken desvenlafaxine succinate 50 mg 50 mg PO QAM 06/10/19 06/29/25 06/28/25 tablet,extended release 24 hr (Pristiq) cyanocobalamin (vitamin B-12) 1,000 mcg PO DAILY 06/15/19 06/29/25 06/28/25 1,000 mcg capsule alendronate 70 mg tablet 70 mg PO WK 06/20/21 06/29/25 06/28/25 folic acid 400 mcg tablet 0.4 mg PO DAILY 12/14/23 06/29/25 06/28/25 Active Medications Generic Name Dose Route Start Last Admin Trade Name Adebayo PRN Reason Stop Dose Admin Cyanocobalamin 1,000 mcg 06/29/25 09:00 06/29/25 08:20 Cyanocobalamin (B-12) 500 Mcg Tablet PO 07/29/25 08:59 1,000 mcg DAILY SONIA Administration Enoxaparin Sodium 40 mg 06/29/25 09:00 06/29/25 08:20 Enoxaparin Inj 40 Mg/0.4 Ml Syr SQ 07/29/25 08:59 40 mg QAM SONIA Administration Folic Acid 400 mcg 06/29/25 09:00 06/29/25 08:20 Folic Acid 400 Mcg Tab PO 07/29/25 08:59 400 mcg DAILY SONIA Administration Miscellaneous 1 each 06/29/25 08:00 06/29/25 15:29 Desvenlafaxine Succinate [Pristiq]: Order Awaiting Action N/A 07/29/25 07:59 Not Given QS SONIA
[2025-06-29] MEDS: predniSONE 20 MG TAB PO SCH (18:19)
[2025-06-30 07:28] LABS: Anion Gap 11.0 (3-11); Blood Urea Nitrogen 15.0 mg/dl (6-23); Calcium 9.3 mg/dl (8.6-10.3); Carbon Dioxide 24.0 mmol/L (21-32); Chloride 102.0 mmol/L (98-107); Creatinine Clr Calc Pharmacy 44.6 ml/min; Glucose 149.0 mg/dl (70-99(Fasting)); Potassium 3.8 mmol/L (3.5-5.1); Sodium 137.0 mmol/L (136-145)
[2025-06-30 07:35] LABS: Hematocrit (blood only) 37.6 % (37.0-47.0); Hemoglobin 12.7 g/dl (12.0-16.0); Immature Granulocytes # (auto) 0.02 K/uL (0.01-0.20); Immature Granulocytes % (auto) 0.4 %; Mean Corpuscular Hemoglobin 32.2 pg (25.0-34.0); Mean Corpuscular Volume 95.4 fL (80.0-100.0); Platelet Count 234 K/uL (130-400); RDW Standard Deviation 44.7 fL (36.4-46.3); Red Blood Count 3.94 M/uL (4.20-5.40); White Blood Count 5.71 K/ul (4.8-10.8)
--- NOTE | 2025-06-30 11:30 | Discharge Summary ---
Date of Service June 30, 2025 Admission HPI Per Admitting Provider History obtained from patient and records. Medical history significant for chronic diastolic heart failure (60%, TTE 2020), hypertension, trace MR, NAFLD, past history C. difficile, multiple sclerosis, history traumatic subdural hematoma status post surgery, mood disorder, past tobacco abuse. Last confinement 2023 for traumatic left acetabular fracture and pelvic fractures second to fall and UTI. Nonoperative intervention for orthopedic injury. 3 days ago, patient noted bilateral leg weakness reminiscent of MS flareup. Trouble ambulating. Denies headache, chest pain, cough, SOB, dysuria symptoms. Last attack was last year. Weakness improved with outpatient steroid prescription from physician. Patient consulted ER for evaluation. Uncomfortable going home. 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 Admission Exam Per Admitting Provider GENERAL: Comfortable, pleasant, no respiratory distress SKIN: Normal color, warm HEENT: [place] palpebral conjunctivae, no ptosis, dry buccal mucosa, partially edentulous NECK : Supple, no tenderness CHEST : CTA, no tenderness HEART : RRR, no obvious murmurs ABDOMEN: Some distention, nontender EXTREMITIES : No LE swelling/tenderness, palpable pulses, no other conspicuous deformities noted NEUROLOGIC : Coherent, no facial asymmetry, MMTS BUE/BLE 4/5, gait and stance not assessed Principal Diagnosis MS flare Discharge Exam Constitutional: WD/WN, vitals as above, NAD, sitting up in bed, pleasant, conversing easily Respiratory: normal respiratory effort, lungs clear to auscultation, no wheeze, rales, rhonchi. Normal insp/exp effort, no accessory muscle use Cardiovascular: RRR, no murmur, no edema Vessels: no JVD or carotid bruit Chest: normal inspection of chest Abdomen: normal bowel sounds, soft, nontender, no hepatosplenomegaly Musculoskeletal: no cyanosis or clubbing, extremities motor strength 5/5 Skin: no rashes, warm and dry normal turgor Neurologic: PERRL, EOMI, accommodation nl, no face palsy, no dysarthria CN's II- XI intact bilaterally and moves all extremities Psychiatric: A+Ox3, euthymic affect Discharge Data Allergies Allergy/AdvReac Type Severity Reaction Status Date / Time ampicillin Allergy Intermediate Hives Verified 12/14/23 17:20 ciprofloxacin [From Cipro] Allergy Intermediate Hives Verified 12/14/23 17:20 metronidazole [From Flagyl] Allergy Intermediate Rash Verified 12/14/23 17:20 Penicillins Allergy Intermediate Hives Verified 12/14/23 17:20 Sulfa (Sulfonamide Allergy Intermediate Hives Verified 12/14/23 17:20 Antibiotics) tetracycline Allergy Intermediate Hives Verified 12/14/23 17:20 Consultations 06/29/25 03:34 ED Decision to Admit Stat 06/29/25 04:25 Consult Neurology Routine Ordered Studies 06/28/25 23:49 CT head/brain wo con Stat Hospital Course (1) Leg weakness, bilateral: Patient with a past medical history of multiple sclerosis, chronic diastolic heart failure, hypertension, mood disorder presented with generalized weakness and bilateral lower extremity weakness. Her strength in bilateral lower extremity where 4/5 on admission; sensation intact. Patient reported similar symptoms in the past during MS flare. Neurology was consulted for comanagement; patient was recommended to be started on prednisone 80 mg daily for total of 5 days. Patient needs to follow-up with her outpatient neurologist in 1 month. PT OT evaluation was done; patient felt comfortable to go home. Please note the above document was generated using voice recognition software. It may contain grammatical, syntax or spelling errors. Any formal questions or concerns about the content, text or information contained within the body of this dictation should be directly addressed to the provider for clarification Total Time Total Time Spent Total Time Spent (In Minutes): 34 Total Time Includes: Examination of the Patient, Discharge Planning, Medication Reconciliation, Communication With Other Providers and Other Discharge Plan Discharge Items Patient Disposition: Home - Self-Care Reason For Visit: LE WEAKNESS Discharge Diagnosis: MS Flare Condition on Discharge: Fair Activity: Resume your previous activity Non-emergency contact: Primary Care Provider Call non-emergency contact if: you have any medication questions and your symptoms worsen Follow-up/Referrals: Carlos Bhagat MD [Primary Care Provider] - (Date & Time 07/05/2025 5:40 PM Provider: Carlos Bhagat MD General Internal Medicine [facility] ) Diet: Regular Addtl Attending Provider Instructions: You were admitted to the hospital with MS flare. You are prescribed prednisone 80 mg ( 4 tabs of 20mg) for 3 more days to complete the course. To be taken An appointment has been set up with your primary care doctor for follow-up. Pending Studies at Discharge: No Stand-Alone Forms: My [facility], Smoking Cessation Medications and DC Order Prescriptions: New prednisone 20 mg Tablet 80 mg PO DAILY 3 Days Qty: 12 0RF Continued desvenlafaxine succinate [Pristiq] 50 mg tablet extended release 24 hr 50 mg PO QAM cyanocobalamin (vitamin B-12) 1,000 mcg Capsule 1,000 mcg PO DAILY alendronate 70 mg tablet 70 mg PO WK Rx Instructions: TAKES ON THURSDAY, PER PT "TAKE WHEN I REMEMBER". folic acid 400 mcg Tablet 0.4 mg PO DAILY Discharge Orders: Discharge Order (Routine); Ordered 06/30/25 Ordered By: Remigio Todd Admission Data Admit Date/Time: 06/29/25 03:52 Attending Provider: Remigio Todd Admit Provider: Oumar Sterling Primary Care Provider: Carlos Bhagat Other Providers: Oumar Sterling; Madison Mcgregor; Eze Lopez; Madison Duran; Evangelista Prince; Alexandre Angelo; Hoang Schaefer; Tim Matson; Lisseth Grady; Mac Correa; Dago Potter; Apple Polk; Josef López; Xochitl Alfaro; Tim Muhammad; Terra Mina; Dunia Lee
--- NOTE | 2025-06-30 13:55 | Hospitalist Progress Note ---
Date of Service June 30, 2025 Assessment & Plan (1) Leg weakness, bilateral: Plan: Patient presented with b/l LE weakness and generalized fatigue. Hx of MS; not on disease modifying meds. Evaluated by neurology; recommended 5 day course of steroids and MRI lumbar spine Initially planned to be discharged home but PT/OT recommended rehab. Continue on prednisone Obtain MRI lumbar spine w/wo contrast. continue pt/ot chronic diastolic heart failure (60%, TTE 2020), patient euvolemic hypertension- not on meds currently history traumatic subdural hematoma status post surgery (2010, [place]) Mood disorder, stable past tobacco abuse DVT prophylaxis. Pitzinox subcu Full code Text document was generated using [employer] voice recognition software. It may contain grammatical or spelling errors. Kindly contact undersigned for clarification of any documentation item in question. Admission and Anticipated Discharge Date Admission Date: June 29, 2025 Subjective Patient seen and examined at bedside. She is comfortable; not in any distress. She reports that her Lower extremity weakness has slightly improved. Review of Systems Review of Systems: All systems reviewed & are unremarkable except as noted in Subjective Physical Exam Physical Exam: Constitutional: Alert oriented x 3; not in distress. Respiratory: normal respiratory effort, lungs clear to auscultation, no wheeze, rales, rhonchi. Normal insp/exp effort, no accessory muscle use Cardiovascular: RRR, no murmur, no edema Vessels: no JVD or carotid bruit Chest: normal inspection of chest Abdomen: normal bowel sounds, soft, nontender, no hepatosplenomegaly Musculoskeletal: no cyanosis or clubbing, extremities motor strength 5/5 Skin: no rashes, warm and dry normal turgor Neurologic: PERRL, EOMI, accommodation nl, no face palsy, no dysarthria CN's II- XI intact bilaterally and moves all extremities Psychiatric: A+Ox3, euthymic affect Results & Data Results & Data Vital Signs (Past 12 Hours) Vital Signs Temp Pulse Resp BP BP Pulse Ox O2 Del Method 06/30/25 11:00 35.8 C L 106 H 18 123/82 93 Room Air 06/30/25 07:05 36.6 C 95 H 18 113/78 91 Room Air 06/30/25 01:53 36.8 C 102 H 16 122/78 91 Room Air
[2025-06-30] MEDS: DESVENLAFAXINE SUCCINATE ER TABLET PO SCH (18:16)
--- NOTE | 2025-07-01 | Magnetic Resonance Report ---
Exam(s): MRI L SPINE W/WO Contrast EXAM: MR Lumbar Spine Without and With Intravenous Contrast CLINICAL HISTORY: Reason for exam: LE weakness. TECHNIQUE: Magnetic resonance images of the lumbar spine without and with intravenous contrast in multiple planes. CONTRAST: 4.6 mL of Gadavist IV. COMPARISON: No relevant prior studies available. FINDINGS: Vertebrae: Old healed 20% superior endplate compression fractures of T12 and L1. No acute fracture or subluxation is seen. Spinal cord: The conus medullaris terminates normally at the L1 level. No abnormal enhancement. Soft tissues: Mild atrophy of the erector spinae muscles. No areas of abnormal contrast enhancement are identified. Kidneys and ureters: 9 mm simple cyst in the left kidney. No follow- up is required. DISCS/SPINAL CANAL/NEURAL FORAMINA: L1-L2: Mild degenerative disc disease. No stenosis. L2-L3: Mild degenerative disc disease. No stenosis. L3-L4: Mild degenerative disc disease. No stenosis. L4-L5: Mild degenerative disc disease. No stenosis. L5-S1: Unremarkable. No significant disc disease. No stenosis. IMPRESSION: Old healed 20% superior endplate compression fractures of T12 and L1. No acute fracture or subluxation is seen. Mild multilevel degenerative disc disease throughout the lumbar spine. No significant spinal stenosis is identified. Electronically signed by: Ivan Romo MD 06/30/25 23:59 PM
[2025-07-01 02:39] VITALS: RESP 18; TEMP 97.5
[2025-07-01 07:34] VITALS: O2SAT 92
[2025-07-01 11:25] VITALS: BP 124/78; PULSE 78
--- NOTE | 2025-07-01 11:44 | Discharge Summary ---
Date of Service July 01, 2025 Admission HPI Per Admitting Provider History obtained from patient and records. Medical history significant for chronic diastolic heart failure (60%, TTE 2020), hypertension, trace MR, NAFLD, past history C. difficile, multiple sclerosis, history traumatic subdural hematoma status post surgery, mood disorder, past tobacco abuse. Last confinement 2023 for traumatic left acetabular fracture and pelvic fractures second to fall and UTI. Nonoperative intervention for orthopedic injury. 3 days ago, patient noted bilateral leg weakness reminiscent of MS flareup. Trouble ambulating. Denies headache, chest pain, cough, SOB, dysuria symptoms. Last attack was last year. Weakness improved with outpatient steroid prescription from physician. Patient consulted ER for evaluation. Uncomfortable going home. Admission Exam Per Admitting Provider GENERAL: Comfortable, pleasant, no respiratory distress SKIN: Normal color, warm HEENT: [place] palpebral conjunctivae, no ptosis, dry buccal mucosa, partially edentulous NECK : Supple, no tenderness CHEST : CTA, no tenderness HEART : RRR, no obvious murmurs ABDOMEN: Some distention, nontender EXTREMITIES : No LE swelling/tenderness, palpable pulses, no other conspicuous deformities noted NEUROLOGIC : Coherent, no facial asymmetry, MMTS BUE/BLE 4/5, gait and stance not assessed Principal Diagnosis Multiple sclerosis flareup Discharge Exam Constitutional: Alert oriented x 3; not in distress. Respiratory: normal respiratory effort, lungs clear to auscultation, no wheeze, rales, rhonchi. Normal insp/exp effort, no accessory muscle use Cardiovascular: RRR, no murmur, no edema Vessels: no JVD or carotid bruit Chest: normal inspection of chest Abdomen: normal bowel sounds, soft, nontender, no hepatosplenomegaly Musculoskeletal: no cyanosis or clubbing, extremities motor strength 5/5 Skin: no rashes, warm and dry normal turgor Neurologic: PERRL, EOMI, accommodation nl, no face palsy, no dysarthria CN's II- XI intact bilaterally and moves all extremities Psychiatric: A+Ox3, euthymic affect Discharge Data Allergies Allergy/AdvReac Type Severity Reaction Status Date / Time ampicillin Allergy Intermediate Hives Verified 12/14/23 17:20 ciprofloxacin [From Cipro] Allergy Intermediate Hives Verified 12/14/23 17:20 metronidazole [From Flagyl] Allergy Intermediate Rash Verified 12/14/23 17:20 Penicillins Allergy Intermediate Hives Verified 12/14/23 17:20 Sulfa (Sulfonamide Allergy Intermediate Hives Verified 12/14/23 17:20 Antibiotics) tetracycline Allergy Intermediate Hives Verified 12/14/23 17:20 Consultations 06/29/25 03:34 ED Decision to Admit Stat 06/29/25 04:25 Consult Neurology Routine Ordered Studies 06/28/25 23:49 CT head/brain wo con Stat 06/30/25 13:43 MRI Lumbar Spine [MR lumbar spine wo/w con] Urgent Hospital Course (1) Leg weakness, bilateral: Patient presented with b/l LE weakness and generalized fatigue. Hx of MS; not on disease modifying meds. Evaluated by neurology; recommended 5 day course of steroids and MRI lumbar spine MRI of the lumbar spine showed old healed 20% superior endplate compression fracture of T12 and L1. No acute findings were seen. Patient reported significant improvement with the trial of steroid. PT OT evaluation was done and patient was recommended rehab; however she felt that she was not back to her baseline and wanted to go home. Patient was discharged home with instructions to follow-up with primary care doctor and neurology. I discussed regarding doing possible DEXA scan as outpatient given the findings on her MRI. Patient verbalized understanding. Please note the above document was generated using voice recognition software. It may contain grammatical, syntax or spelling errors. Any formal questions or concerns about the content, text or information contained within the body of this dictation should be directly addressed to the provider for clarification Total Time Total Time Spent Total Time Spent (In Minutes): 45 Total Time Includes: Examination of the Patient, Discharge Planning, Medication Reconciliation, Communication With Other Providers and Other Discharge Plan Discharge Items Patient Disposition: Home - Self-Care Reason For Visit: LE WEAKNESS Discharge Diagnosis: MS Flare Condition on Discharge: Fair Activity: Resume your previous activity Non-emergency contact: Primary Care Provider Call non-emergency contact if: you have any medication questions and your symptoms worsen Follow-up/Referrals: Carlos Bhagat MD [Primary Care Provider] - (Date & Time 07/05/2025 5:40 PM Provider: Carlos Bhagat MD General Internal Medicine [facility] ) Diet: Regular Addtl Attending Provider Instructions: You were admitted to the hospital with MS flare. You are prescribed prednisone 80 mg ( 4 tabs of 20mg) for 2 more days to complete the course. An appointment has been set up with your primary care doctor for follow-up. Pending Studies at Discharge: No Stand-Alone Forms: My [facility], Smoking Cessation Medications and DC Order Prescriptions: New prednisone 20 mg tablet 80 mg PO DAILY 2 Days Qty: 8 0RF Continued desvenlafaxine succinate [Pristiq] 50 mg tablet extended release 24 hr 50 mg PO QAM cyanocobalamin (vitamin B-12) 1,000 mcg Capsule 1,000 mcg PO DAILY alendronate 70 mg tablet 70 mg PO WK Rx Instructions: TAKES ON THURSDAY, PER PT "TAKE WHEN I REMEMBER". folic acid 400 mcg Tablet 0.4 mg PO DAILY Discharge Orders: Discharge Order (Routine); Ordered 07/01/25 Ordered By: Remigio Todd Admission Data Admit Date/Time: 06/29/25 03:52 Attending Provider: Remigio Todd Admit Provider: Oumar Sterling Primary Care Provider: Carlos Bhagat Other Providers: Oumar Sterling; Madison Mcgregor; Eze Lopez Kathleen; Evangelista Prince; Alexandre Angelo; Hoang Schaefer; Tim Matson; Lisseth Grady; Mac Correa; Dago Potter; Apple Polk; Josef López; Xochitl Alfaro; Tim Muhammad; Terra Mina; Dunia Lee; [facility] Other Interventions: Discharge Summary Assessment (RN) Last Done: 07/01/25 11:24
--- NOTE | 2025-07-02 07:20 | Electrocardiogram Report ---
Test Reason : Blood Pressure : */* mmHG Vent. Rate : 91 BPM Atrial Rate : 91 BPM P-R Int : 142 ms QRS Dur : 72 ms QT Int : 368 ms P-R-T Axes : 56 -26 24 degrees QTcB Int : 452 ms Normal sinus rhythm Possible Anterolateral infarct (cited on or before 16-Feb-2024) Abnormal ECG When compared with ECG of 16-Feb-2024 05:50, No significant change was found Confirmed by Marcel Ortiz ([id number]) on 07/02/2025 7:20:03 AM Referred By: REFERRED SELF Confirmed By: Marcel Ortiz
== END 2025-07-01 12:27 | disposition home health service (06) ==
LOC: EDINP 22:51 → ED 22:51 → 2N 06-29 16:36